=== PATIENT | female | born 1960 | race Caucasian/White ===

== ENCOUNTER 2024-08-20 10:30 | Outpatient (CLI) | payer MEDICARE, SELFPAY ==
[2024-08-20 11:30] LABS: Basophils Absolute Auto 0.1 K/mm3 (0.0-0.1); Basophils Percent Auto 0.9 % (0.2-1.2); Eosinophils Absolute Auto 0.5 K/mm3 (0-0.3); Eosinophils Percent Auto 5.1 % (0-4.4); Hematocrit 39.4 % (37.0-47.0); Hemoglobin 12.3 g/dL (12.0-15.0); Immature Granulocyte Absolute 0.02 K/mm3 (0.00-0.031); Immature Granulocyte Percent A 0.2 % (0-0.5); Lymphocytes Absolute Auto 2.59 K/mm3 (0.9-3.2); Lymphocytes Percent Auto 25.5 % (18.3-44.2); Mean Corpuscular HGB Conc 31.2 g/dl (32-36); Mean Corpuscular Hemoglobin 28.7 pg (26-34); Mean Corpuscular Volume 91.8 fl (80-100); Mean Platelet Volume 9.4 fl (7.4-10.4); Monocytes Absolute Auto 0.6 K/mm3 (0.1-0.6); Monocytes Percent Auto 5.8 % (2.6-8.5); Neutrophils Absolute Auto 6.3 K/mm3 (1.3-6.7); Neutrophils Percent Auto 62.5 % (45.5-73.1); Platelet Count Result 370 k/mm3 (150-375); Red Blood Count 4.29 M/mm3 (4.2-5.4); Red Cell Distribution Width 13.8 % (11.5-14.5); White Blood Count 10.1 K/mm3 (4.5-10.0)
[2024-08-20 11:44] LABS: Add Urine Microscopic? YES; Appearance Urine Clear (Clear); Bacteria Urine None Seen /hpf; Bilirubin Urine Negative (Negative); Blood Urine Negative (Negative); Color Urine Yellow (Yellow); Glucose Urine UA Negative (Negative); Ketones Urine Negative (Negative); Leukocyte Esterase Ur Negative LEU/UL (Negative); Nitrate Urine Negative (Negative); Non Pathogenic Casts 0-2; Protein Urine 3+ mg/dL (Negative); RBC Urine 0-2 /hpf (0-2); Squamous Epithelial Cell Urine None Seen /hpf (Few); Urobilinogen Urine 0.2 mg/dL (<2.0); WBC Urine 0-5 /hpf (0-3); pH Urine 6.5 (5.0-9.0)
[2024-08-20 11:51] LABS: Alanine Aminotransferase 28 U/L (6-35); Alkaline Phosphatase 100 U/L (38-126); Anion Gap 5 mmol/L (4-12); Aspartate Amino Transferase 40 U/L (14-36); Bilirubin,Total 0.5 mg/dL (0.2-1.3); Blood Urea Nitrogen 17 mg/dL (7-17); Calcium 9.8 mg/dL (8.4-10.2); Carbon Dioxide 32 mmol/L (22-30); Chloride 100 mmol/L (98-107); Cholesterol 232 mg/dL (0-200); Estimated Glomerular Filt Rate 47; Glucose 140 mg/dL (65-110); HDL Direct 72 mg/dL; Potassium 4.5 mmol/L (3.4-5.0); Sodium 137 mmol/L (137-145); Triglycerides 320 mg/dL (<150)
[2024-08-20 12:02] LABS: LDL Cholesterol Direct 90 mg/dL
[2024-08-20 12:20] LABS: Total Triiodothyronine (T3) 0.96 NG/ML (0.97-1.69)
[2024-08-20 12:27] LABS: Iron 77 ug/dL (37-170)
[2024-08-20 12:38] LABS: Percent Iron Saturation 26 % (20-50)
[2024-08-20 13:01] LABS: Free T4 Free Thyroxine 0.75 ng/dL (0.78-2.19); Vitamin D 25 Hydroxy 22.4 ng/mL
[2024-08-20 13:05] LABS: Folic Acid > 20.0 ng/mL (2.76->20)
[2024-08-24 00:59] LABS: Alpha-Tocopherol 21.8 mg/L (5.7-19.9); Beta-Gamma Tocopherol 3.3 mg/L (<4.4)
[2024-08-25 19:08] LABS: Vitamin B1 21 nmol/L (8-30)
== END 2024-08-20 10:31 | disposition home or self-care (01) ==
LOC: ANHLAB 10:35
PROVIDERS: PCP Family Medicine; Visit Provider Family Medicine
DX: E78.5 Hyperlipidemia, unspecified (principal); I10 Essential (primary) hypertension; D64.9 Anemia, unspecified; E11.9 Type 2 diabetes mellitus without complications; E55.9 Vitamin D deficiency, unspecified; R53.82 Chronic fatigue, unspecified
CPT/HCPCS: 36415; 80053; 80061; 81001; 82306; 82607; 82728; 82746; 83036; 83540; 83550; 84207; 84252; 84425; 84439; 84443; 84446; 84480; 85025

== ENCOUNTER 2024-10-21 13:54 | Inpatient (IN) | payer MEDICARE, SELFPAY ==
[2024-10-21] VITALS (15 sets, daily range): BP systolic 73–156; BP diastolic 48–88; PULSE 62–167; RESP 12–20; TEMP 36.6–36.8; O2SAT 97–100; BMI 26.5
--- NOTE | ~2024-10-21 | NM_ITS ---
EXAMINATION: NM bakari stress w perfusion DATE: 10/23/2024 10:47 INDICATION: Chest pain TECHNIQUE: Rest images were obtained following intravenous administration of 11.5 mCi Tc99m tetrofosm in (Myoview). The patient was infused intravenously with Lexiscan (Regadenoson). Then, 44.4 mCi Tc99m tetrofosmin (Myoview) was administered intravenously, and stress images were obtained. Data was amauri nstructed into short axis and horizontal and vertical long axis SPECT images. Gated SPECT images were also obtained. COMPARISON: None. FINDINGS: There is no definite reversible or fixed perfusion abnormality to suggest ischemia or infar ction. There is normal left ventricular chamber size, wall motion and ejection fraction. Left ventr icular ejection fraction measures 69%. IMPRESSION: 1. Normal myocardial perfusion at rest and during stress. 2. Left ventricular ejection fraction measuring 69%. Reviewed, dictated and finalized at location B.
--- NOTE | ~2024-10-21 | XR_ITS ---
XR chest 2V Ordering provider: Andrew Woodall MD History: 64 years Female with . cp . Comparison: December 11, 2011 FINDINGS: MEDIASTINUM: The cardiac silhouette is slightly enlarged. Postoperative changes in the mediastinum. LUNGS: No infiltrates, effusions or pneumothorax. Slightly prominent bronchovascular markings in the lower lobes. OTHER: No free air under the diaphragm. IMPRESSION: No acute cardiopulmonary pathology. Reviewed, dictated and finalized at location A.
--- NOTE | ~2024-10-21 | CT_ITS ---
EXAMINATION: CT brain wo con DATE: 10/21/2024 15:27 INDICATION: Headache. TECHNIQUE: Computed tomography (CT) of the head was performed without intravenous contrast. Sagittal and coronal reconstructions were performed. The mA was adjusted according to patient size. Iterative reconstruction technique was employed. The dose-length product was 605.33 mGy-cm. COMPARISON: None FINDINGS: No acute intracranial hemorrhage, acute infarction or abnormal extra axial fluid collection. There is mild to moderate scattered white matter hypoattenuation consistent with chronic small vessel ischemi c disease. Symmetric prominence of the sulci consistent with mild age-appropriate diffuse cerebral vo lume loss. Ventricles are normal and symmetric. No mass/mass effect. Changes of bilateral intraocular lens replacement. The orbits and mastoid air cells are normal. Bubbly mucus in the left sphenoid sin us. IMPRESSION: 1. No acute intracranial process. 2. Age-related changes including mild diffuse volume loss and mild to moderate scattered nonspecific white matter hypoattenuation consistent with chronic small vessel ischemic disease. 2. Bubbly mucus in the left sphenoid sinus. Correlate clinically for acute sinusitis. Reviewed, dictated and finalized at location B. IMPRESSION: 1. No acute intracranial process. 2. Age-related changes including mild diffuse volume loss and mild to moderate scattered nonspecific white matter hypoattenuation consistent with chronic smal l vessel ischemic disease. 2. Bubbly mucus in the left sphenoid sinus. Correlate clinically for acute sinu sitis.
--- NOTE | ~2024-10-21 | US_ITS ---
BILATERAL LOWER EXTREMITY VENOUS ULTRASOUND Ordering provider: Med Aguilar MD History: . +DDimer . Comparison: None. FINDINGS: RIGHT LOWER EXTREMITY VEINS: --COMMON FEMORAL: Patent and free of thrombus. Normal compressibility, phasic flow and augmentation. --PROXIMAL SUPERFICIAL FEMORAL: Patent and free of thrombus. Normal compressibility, phasic flow and augmentation. --DISTAL SUPERFICIAL FEMORAL: Patent and free of thrombus. Normal compressibility, phasic flow and au gmentation. --POPLITEAL: Patent and free of thrombus. Normal compressibility, phasic flow and augmentation. --POSTERIOR TIBIAL: Patent and free of thrombus. Normal compressibility, phasic flow and augmentation . LEFT LOWER EXTREMITY VEINS: --COMMON FEMORAL: Patent and free of thrombus. Normal compressibility, phasic flow and augmentation. --PROXIMAL SUPERFICIAL FEMORAL: Patent and free of thrombus. Normal compressibility, phasic flow and augmentation. --DISTAL SUPERFICIAL FEMORAL: Patent and free of thrombus. Normal compressibility, phasic flow and au gmentation. --POPLITEAL: Patent and free of thrombus. Normal compressibility, phasic flow and augmentation. --POSTERIOR TIBIAL: Patent and free of thrombus. Normal compressibility, phasic flow and augmentation . IMPRESSION: Negative bilateral lower extremity venous US. No deep vein thrombosis. Reviewed, dictated and finalized at location A.
--- NOTE | ~2024-10-21 | US_ITS ---
EXAM: RENAL ULTRASOUND HISTORY: Acute/chronic renal failure COMPARISON: None FINDINGS: RIGHT KIDNEY: 10.6 x 3.4 x 4.3 cm. The parenchyma of the right kidney is increased in echogenicity. No hydronephrosis or bulky renal calculi. LEFT KIDNEY: 10.0 x 5.1 x 3.7 cm No hydronephrosis or renal calculi. The parenchyma of the left kidney is increased in echogenicity. BLADDER: Minimally distended, with bilateral jets visualized. IMPRESSION: No hydronephrosis or renal calculi. Findings suggesting medical renal disease. Reviewed, dictated and finalized at location A.
--- NOTE | 2024-10-21 14:07 | ECG_ITS ---
Test Date: 2024-10-21 14:11:24 Measurements Intervals [place] Rate: 164 P: 0 SD: 0 QRS: 16 QRSD: 80 T: 87 QT: 276 QTc: 457 Interpretive Statements ATRIAL FLUTTER/TACHYCARDIA WITH RAPID VENTRICULAR RESPONSE POSSIBLE RIGHT VENTRICULAR CONDUCTION DELAY ANTEROSEPTAL INFARCT, AGE INDETERMINATE ST-T WAVE ABNORMALITY IN ANTEROLAT/HIGH LAT LEADS- CONSIDER ISCHEMIA ABNORMAL ECG No previous ECG available for comparison Electronically Signed On 10-21-2024 14:15:18 CDT by Barry Cox D.O.
--- NOTE | 2024-10-21 14:12 | ED_ITS ---
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 No shortness of breath. Having nausea but no vomiting. No fevers/chills. Patient is new to the area, having moved here after the of her fiance of 12 years. Has not yet established with a poultry hanger here. Supposed to have an upcoming appointment with Dr Cox. Cardiac risk factors HTN:Denies HLD: Yes, on atorvastatin DM: non insulin dependent , uncontrolled per daughter Obese: No Smoker: Yes like a furance per daughter Personal history OR/TIA/CVA: Yes, OR Fam Hx OR in first degree relative <65yo: Yes, Mother Related Data Home Medications ?Medication ?Instructions ?Recorded ?Confirmed ?Last Taken ?Type alprazolam 0.5 mg tablet (Xanax) 0.5 mg PO QHS PRN anxiety 03/08/23 10/21/24 10/20/24 History ascorbic acid (vitamin C) 250 mg 125 mg PO DAILY 03/08/23 10/21/24 10/21/24 History tablet aspirin 81 mg tablet,delayed 81 mg PO DAILY 03/08/23 10/21/24 10/20/24 History release (Adult Low Dose Aspirin) atorvastatin 20 mg tablet 20 mg PO QHS 03/08/23 10/21/24 10/20/24 History cetirizine 10 mg tablet (Zyrtec) 10 mg PO DAILY PRN allergy symptoms 03/08/23 10/21/24 10/21/24 History cranberry extract 200 mg capsule 36,000 mg PO DAILY 03/08/23 10/21/24 10/21/24 History dicyclomine 20 mg tablet 20 mg PO BID 03/08/23 10/21/24 10/21/24 History ferrous sulfate 325 mg (65 mg 325 mg PO DAILY 03/08/23 10/21/24 10/21/24 History iron) tablet furosemide 40 mg tablet (Lasix) 40 mg PO QAM 03/08/23 10/21/24 10/21/24 History gabapentin 800 mg tablet 800 mg PO QID 03/08/23 10/21/24 10/21/24 History glipizide 5 mg tablet 5 mg PO BID 03/08/23 10/21/24 10/21/24 History hydrocodone 7.5 mg-acetaminophen 1 tablet PO BID 03/08/23 10/21/24 10/20/24 History 750 mg tablet ibuprofen 800 mg tablet 800 mg PO TID PRN pain 03/08/23 10/21/24 Unknown History mecobalamin (vitamin B12) 5,000 5,000 mcg PO DAILY 03/08/23 10/21/24 10/21/24 History mcg chewable tablet metformin 1,000 mg tablet,extended 1,000 mg PO BID 03/08/23 10/21/24 10/21/24 History release 24hr (osmotic) metoprolol tartrate 25 mg tablet 25 mg PO BID 03/08/23 10/21/24 10/21/24 History multivitamin 1 tablet PO DAILY 03/08/23 10/21/24 10/21/24 History pantoprazole 40 mg tablet,delayed 40 mg PO QAM 03/08/23 10/21/24 10/21/24 History release potassium chloride 20 mEq 20 meq PO DAILY 03/08/23 10/21/24 10/21/24 History tablet,extended release sertraline 100 mg tablet 100 mg PO DAILY 03/08/23 10/21/24 10/20/24 History Allergies Allergy/AdvReac Type Severity Reaction Status Date / Time tape Allergy Mild rash Uncoded 10/21/24 14:04 [facility] Past Medical History Medical History (Updated 10/22/24 @ 16:13 by Med Aguilar MD) Atrial flutter Chronic kidney disease, stage 3 Hyperlipidemia Hypertension Depression with anxiety Coronary artery disease Type 2 diabetes mellitus Irritable bowel syndrome Cancer of left breast status post chemo radiation and mastectomy Chronic obstructive pulmonary disease Congestive heart failure Headache Arthritis Anxiety Surgical History Surgical History History of partial hysterectomy History of repair of left rotator cuff History of coronary artery bypass graft x 2 History of left mastectomy Family History Family History Father Alcoholism Daughter Depression Thyroid disorder Mother Acute myocardial infarction <65yo Social History Social History Social History: [place] the [place] due to the of her fiance of 12 years Surrogate medical decision maker: Breanna Ramirez, daughter. Code status: Full code. Smoking packs per day: 0.75 Smoking cigarettes per day: 15.0 Years smoked: 53 Smoking pack-years: 39.75 Smoking status: Current every day smoker Tobacco type: cigarettes Alcohol intake: never Substance use: never Do You Feel Safe in your Home?: Yes Lack of Transportation: No Lack of Food: Never True Current Housing: I Have Housing Concerned About Future Housing: No Difficulty Paying Gas/Electric Bills: No Difficulty Paying for Meds: No Currently Unemployed: No Education: Decline to Answer Difficulty w/ Childcare or Family Care: No Spiritual care concerns: No Exam 2 Narrative: GENERAL: Well-appearing, well-nourished, and in no acute distress. HEAD: Normocephalic, atraumatic. EYES: Non injected, non icteric ENT: Nares clear, no rhinorrhea or epistaxis. No tenderness to palpation of maxillary or frontal sinuses NECK: Supple. CHEST: Speaking in full sentences. No respiratory distress. HEART: IRegularly irregular rate and rhythm at a rate between 150-160 . ABDOMEN: Soft, nondistended. EXTREMITIES: Normal range of motion. 1+ bilateral lower extremity edema. SKIN: Warm, dry, no rash. NEURO: No focal deficits. Alert and oriented x3. PSYCH: Normal mood and affect. Course Vital Signs Vital signs: Vital Signs Temperature 97.8 F 10/21/24 14:02 Pulse Rate 167 H 10/21/24 14:02 Respiratory Rate 20 10/21/24 14:02 Blood Pressure 73/48 L 10/21/24 14:02 Pulse Oximetry 100 10/21/24 14:02 Oxygen Delivery Room Air 10/21/24 14:02 Temperature 97.9 F 10/22/24 23:50 Pulse Rate 62 10/22/24 23:53 Respiratory Rate 18 10/22/24 23:53 Blood Pressure 138/64 10/22/24 23:50 Pulse Oximetry 95 10/22/24 23:53 Oxygen Delivery Room Air 10/22/24 23:53 MDM - Chest Pain MDM Narrative Medical decision making narrative: Patient presents with chets pain and increased heart rate approximately 1 hour prior to arrival. In the emergency department she is afebrile with vital signs notable for a very fast heart rate and hypotension. Patient is in atrial fibrillation with rapid ventricular response (AFib with RVR). An IV was placed and the patient was put on cardiac and pulse oximetry monitors. Patient given 500cc fluid bolus and with this, there is improvement in blood pressure, more hemodynamically stable thus early priority in management was to slow the ventricular rate using metoprolol given this is a medication he is already on. IVP 5mg over 2 minutes initially ordered. No response so this is repeated x1. No response so using diltiazem 0.25mg/kg = approximately 15 mg. Patient rate controls with this. Will administer 30mg PO short-acting diltiazem q6 hours with holding parameters. Patient not currently on anticoagulation. Will require CHADS VASc score calculated as risk stratification for determining stroke risk. HEART SCORE History 2 highly suspicious 1 moderately suspicious 0 slightly suspicious History score [address] depression/elevation not due to LBBB, LVH, or digoxin [address] depression but LBBB, LVH, nonspecific repolarization changes 0 normal ECG score 1 Age 2 >/= 65 1 45-64 0 <45 Age score 2 Risk factors (HTN, hypercholesterolemia, DM, obesity with BMI >30, current smoker or cessation </=3mo), positive fam hx with parent or sibling with CVD before age 65, atherosclerotic disease (prior OR, PCI/CABG, CVA/TIA, or peripheral arterial disease) 2 >/= 3 risk factors or history of atherosclerotic dz 1 - 1-2 risk factors 0 no known risk factors Risk factor score 2 (HLD, DM, smoker, Hx OR, Fam Hx) Initial Troponin 2 >3 times normal limit 1 1-3 times normal limit 0 less than or equal to normal limit Troponin score 0 Total HEART Score 5. Mild hyperkalemia. Calcium gluconate ordered. Will defer giving albuterol given her high heart rate initially. Ordered 5U insulin (reduced given renal function) but deferred additional glucose as she has hyperglycemia. Will defer Lasix at this time given she is hypotensive/borderline hypotensive. No role for bicarb given not acidotic. Had ordered a small 500 cc bolus of IV fluids initially given her tachycardia, judicious given her heart failure. 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 Hyperglycemia is without anion gap acidosis. After patient has rate controlled, she states that her chest pain and shortness of breath are better however she had not earlier been able to states that she has had a headache as well and now this feels like the most prominent symptom. She states when her head gets to pounding as it has been recently (at the top of her head), she will feel numbness and tingling in bilateral arms and legs and this was happening earlier. Patient has converted to a sinus rhythm. Mild leukocytosis. After obtaining the patient's history and performing a physical exam, the headache is most likely due to benign etiology. The neurological examination is non-focal, there are no high-risk features on history, vital signs are stable, and the patient is non-toxic appearing. The Ddx for the patient's headache is tension headache, migraine, or other headache of non-emergent etiology. Patient's headache treated. Better on re-evaluation. Dimer is elevated but YEARS Algorithm : No Clinical signs of DVT: No Hemoptysis: No PE is most likely diagnosis: No D-dimer >1000ng/mL: No Result: PE Excluded Repeat troponin is positive. 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 Differential Diagnosis Differential diagnosis: Likely stable angina, unstable angina pectoris, atypical chest pain, st elevation myocardial infarction, chest pain, biliary colic and other (afib (w/ RVR); ) Lab Data Attestation: I reviewed the patient's lab results. 10/22/24 03:45 10/22/24 03:45 Labs: Lab Results 10/21/24 10/21/24 10/21/24 Range/Units 14:20 14:51 15:06 WBC 11.7 H (4.5-10.0) K/mm3 RBC 4.17 L (4.2-5.4) M/mm3 Hgb 12.1 (12.0-15.0) g/dL Hct 38.7 (37.0-47.0) % MCV 92.8 (80-100) fl MCH 29.0 (26-34) pg MCHC 31.3 L (32-36) g/dl RDW 14.1 (11.5-14.5) % Plt Count 335 (150-375) k/mm3 MPV 9.7 (7.4-10.4) fl Immature Gran % (Auto) 0.4 (0-0.5) % Neut % (Auto) 59.8 (45.5-73.1) % Lymph % (Auto) 28.6 (18.3-44.2) % Snyder % (Auto) 7.9 (2.6-8.5) % Eos % (Auto) 2.8 (0-4.4) % Baso % (Auto) 0.5 (0.2-1.2) % Lymph # (Auto) 3.35 H (0.9-3.2) K/mm3 Snyder # (Auto) 0.9 H (0.1-0.6) K/mm3 Eos # (Auto) 0.3 (0-0.3) K/mm3 Baso # (Auto) 0.1 (0.0-0.1) K/mm3 Abs Immat Gran (auto) 0.05 H (0.00-0.031) K/mm3 Absolute Neuts (auto) 7.0 H (1.3-6.7) K/mm3 Absolute Nucleated RBC 0.000 (0.0-0.012) K/mm3 Nucleated RBC % 0.0 (0.0-0.2) % PT 12.8 (11.1-14.7) Seconds INR 0.9 APTT 25.7 (22.3-36.8) Seconds D-Dimer 0.84 H (<0.48) ug/mL Sodium 138 (137-145) mmol/L Potassium 5.4 H (3.4-5.0) mmol/L Chloride 101 (98-107) mmol/L Carbon Dioxide 26 (22-30) mmol/L Anion Gap 11 (4-12) mmol/L BUN 23 H (7-17) mg/dL Creatinine 1.67 H (0.7-1.0) mg/dL Estim Creat Clear Calc 27 ml/min Estimated GFR 31 L (59 - ) Glucose 264 H (65-110) mg/dL POC Capillary Glucose 231 H (65-105) mg/dl Hemoglobin A1c (<5.7) % Calcium 9.3 (8.4-10.2) mg/dL Magnesium (1.6-2.3) mg/dL Total Bilirubin 0.2 (0.2-1.3) mg/dL AST 43 H (14-36) U/L ALT 30 (6-35) U/L Alkaline Phosphatase 104 (38-126) U/L Total Creatine Kinase (30-135) U/L Troponin I < 0.012 (0.000-0.034) ng/mL C-Reactive Protein (<1.0) mg/dL NT-Pro-B Natriuret Pep 1580 H (19.9-100) pg/mL Total Protein 7.0 (6.3-8.2) g/dL Albumin 4.0 (3.5-5.1) g/dL Triglycerides (<150) mg/dL Cholesterol (0-200) mg/dL LDL Cholesterol Direct mg/dL HDL Direct mg/dL Lipase 243 (23-300) U/L TSH 1.810 (0.465-4.680) uIU/mL Urine Eosinophils (None Seen) % U Random Total Protein mg/dL Ur Random Sodium meq/L Ur Random Potassium meq/L Urine Creatinine mg/dL Protein/Creat Ratio 2 (0-0.20) mg/mg Influenza A (RT-PCR) Negative (Negative) Influenza B (RT-PCR) Negative (Negative) RSV (RT-PCR) Negative (Negative) SARS-CoV-2 RNA (RT-PCR) Negative (Negative) 10/21/24 10/21/24 10/21/24 Range/Units 16:33 17:20 22:06 WBC (4.5-10.0) K/mm3 RBC (4.2-5.4) M/mm3 Hgb (12.0-15.0) g/dL Hct (37.0-47.0) % MCV (80-100) fl MCH (26-34) pg MCHC (32-36) g/dl RDW (11.5-14.5) % Plt Count (150-375) k/mm3 MPV (7.4-10.4) fl Immature Gran % (Auto) (0-0.5) % Neut % (Auto) (45.5-73.1) % Lymph % (Auto) (18.3-44.2) % Snyder % (Auto) (2.6-8.5) % Eos % (Auto) (0-4.4) % Baso % (Auto) (0.2-1.2) % Lymph # (Auto) (0.9-3.2) K/mm3 Snyder # (Auto) (0.1-0.6) K/mm3 Eos # (Auto) (0-0.3) K/mm3 Baso # (Auto) (0.0-0.1) K/mm3 Abs Immat Gran (auto) (0.00-0.031) K/mm3 Absolute Neuts (auto) (1.3-6.7) K/mm3 Absolute Nucleated RBC (0.0-0.012) K/mm3 Nucleated RBC % (0.0-0.2) % PT (11.1-14.7) Seconds INR APTT (22.3-36.8) Seconds D-Dimer (<0.48) ug/mL Sodium 138 (137-145) mmol/L Potassium 4.7 (3.4-5.0) mmol/L Chloride 103 (98-107) mmol/L Carbon Dioxide 30 (22-30) mmol/L Anion Gap 5 (4-12) mmol/L BUN 25 H (7-17) mg/dL Creatinine 1.93 H (0.7-1.0) mg/dL Estim Creat Clear Calc 24 ml/min Estimated GFR 26 L (59 - ) Glucose 104 (65-110) mg/dL POC Capillary Glucose 77 (65-105) mg/dl Hemoglobin A1c 7.7 H (<5.7) % Calcium 9.3 (8.4-10.2) mg/dL Magnesium (1.6-2.3) mg/dL Total Bilirubin (0.2-1.3) mg/dL AST (14-36) U/L ALT (6-35) U/L Alkaline Phosphatase (38-126) U/L Total Creatine Kinase (30-135) U/L Troponin I 0.333 H* D Cancelled (0.000-0.034) ng/mL C-Reactive Protein (<1.0) mg/dL NT-Pro-B Natriuret Pep (19.9-100) pg/mL Total Protein (6.3-8.2) g/dL Albumin (3.5-5.1) g/dL Triglycerides (<150) mg/dL Cholesterol (0-200) mg/dL LDL Cholesterol Direct mg/dL HDL Direct mg/dL Lipase (23-300) U/L TSH (0.465-4.680) uIU/mL Urine Eosinophils (None Seen) % U Random Total Protein mg/dL Ur Random Sodium meq/L Ur Random Potassium meq/L Urine Creatinine mg/dL Protein/Creat Ratio 2 (0-0.20) mg/mg Influenza A (RT-PCR) (Negative) Influenza B (RT-PCR) (Negative) RSV (RT-PCR) (Negative) SARS-CoV-2 RNA (RT-PCR) (Negative) 10/21/24 10/22/24 10/22/24 Range/Units 22:06 00:25 00:25 WBC (4.5-10.0) K/mm3 RBC (4.2-5.4) M/mm3 Hgb (12.0-15.0) g/dL Hct (37.0-47.0) % MCV (80-100) fl MCH (26-34) pg MCHC (32-36) g/dl RDW (11.5-14.5) % Plt Count (150-375) k/mm3 MPV (7.4-10.4) fl Immature Gran % (Auto) (0-0.5) % Neut % (Auto) (45.5-73.1) % Lymph % (Auto) (18.3-44.2) % Snyder % (Auto) (2.6-8.5) % Eos % (Auto) (0-4.4) % Baso % (Auto) (0.2-1.2) % Lymph # (Auto) (0.9-3.2) K/mm3 Snyder # (Auto) (0.1-0.6) K/mm3 Eos # (Auto) (0-0.3) K/mm3 Baso # (Auto) (0.0-0.1) K/mm3 Abs Immat Gran (auto) (0.00-0.031) K/mm3 Absolute Neuts (auto) (1.3-6.7) K/mm3 Absolute Nucleated RBC (0.0-0.012) K/mm3 Nucleated RBC % (0.0-0.2) % PT (11.1-14.7) Seconds INR APTT (22.3-36.8) Seconds D-Dimer (<0.48) ug/mL Sodium (137-145) mmol/L Potassium (3.4-5.0) mmol/L Chloride (98-107) mmol/L Carbon Dioxide (22-30) mmol/L Anion Gap (4-12) mmol/L BUN (7-17) mg/dL Creatinine (0.7-1.0) mg/dL Estim Creat Clear Calc ml/min Estimated GFR (59 - ) Glucose (65-110) mg/dL POC Capillary Glucose (65-105) mg/dl Hemoglobin A1c (<5.7) % Calcium (8.4-10.2) mg/dL Magnesium (1.6-2.3) mg/dL Total Bilirubin (0.2-1.3) mg/dL AST (14-36) U/L ALT (6-35) U/L Alkaline Phosphatase (38-126) U/L Total Creatine Kinase (30-135) U/L Troponin I 1.530 H* D (0.000-0.034) ng/mL C-Reactive Protein < 0.5 (<1.0) mg/dL NT-Pro-B Natriuret Pep (19.9-100) pg/mL Total Protein (6.3-8.2) g/dL Albumin (3.5-5.1) g/dL Triglycerides (<150) mg/dL Cholesterol (0-200) mg/dL LDL Cholesterol Direct mg/dL HDL Direct mg/dL Lipase (23-300) U/L TSH (0.465-4.680) uIU/mL Urine Eosinophils None seen (None Seen) % U Random Total Protein 359 mg/dL Ur Random Sodium 66 meq/L Ur Random Potassium 87.6 meq/L Urine Creatinine 104.6 104.4 mg/dL Protein/Creat Ratio 2 3.43 H (0-0.20) mg/mg Influenza A (RT-PCR) (Negative) Influenza B (RT-PCR) (Negative) RSV (RT-PCR) (Negative) SARS-CoV-2 RNA (RT-PCR) (Negative) 10/22/24 10/22/24 10/22/24 Range/Units 03:45 07:33 08:43 WBC 10.1 H (4.5-10.0) K/mm3 RBC 3.70 L (4.2-5.4) M/mm3 Hgb 10.5 L (12.0-15.0) g/dL Hct 34.0 L (37.0-47.0) % MCV 91.9 (80-100) fl MCH 28.4 (26-34) pg MCHC 30.9 L (32-36) g/dl RDW 14.2 (11.5-14.5) % Plt Count 285 (150-375) k/mm3 MPV 9.8 (7.4-10.4) fl Immature Gran % (Auto) (0-0.5) % Neut % (Auto) (45.5-73.1) % Lymph % (Auto) (18.3-44.2) % Snyder % (Auto) (2.6-8.5) % Eos % (Auto) (0-4.4) % Baso % (Auto) (0.2-1.2) % Lymph # (Auto) (0.9-3.2) K/mm3 Snyder # (Auto) (0.1-0.6) K/mm3 Eos # (Auto) (0-0.3) K/mm3 Baso # (Auto) (0.0-0.1) K/mm3 Abs Immat Gran (auto) (0.00-0.031) K/mm3 Absolute Neuts (auto) (1.3-6.7) K/mm3 Absolute Nucleated RBC (0.0-0.012) K/mm3 Nucleated RBC % (0.0-0.2) % PT (11.1-14.7) Seconds INR APTT (22.3-36.8) Seconds D-Dimer (<0.48) ug/mL Sodium 139 (137-145) mmol/L Potassium 4.3 (3.4-5.0) mmol/L Chloride 104 (98-107) mmol/L Carbon Dioxide 29 (22-30) mmol/L Anion Gap 6 (4-12) mmol/L BUN 27 H (7-17) mg/dL Creatinine 1.97 H (0.7-1.0) mg/dL Estim Creat Clear Calc 23 ml/min Estimated GFR 25 L (59 - ) Glucose 101 (65-110) mg/dL POC Capillary Glucose 112 H (65-105) mg/dl Hemoglobin A1c (<5.7) % Calcium 9.0 (8.4-10.2) mg/dL Magnesium 1.6 (1.6-2.3) mg/dL Total Bilirubin 0.3 (0.2-1.3) mg/dL AST 38 H (14-36) U/L ALT 27 (6-35) U/L Alkaline Phosphatase 100 (38-126) U/L Total Creatine Kinase 99 (30-135) U/L Troponin I 0.918 H* (0.000-0.034) ng/mL C-Reactive Protein (<1.0) mg/dL NT-Pro-B Natriuret Pep (19.9-100) pg/mL Total Protein 6.0 L (6.3-8.2) g/dL Albumin 3.5 (3.5-5.1) g/dL Triglycerides 227 H (<150) mg/dL Cholesterol 172 (0-200) mg/dL LDL Cholesterol Direct 65 mg/dL HDL Direct 54 mg/dL Lipase (23-300) U/L TSH (0.465-4.680) uIU/mL Urine Eosinophils (None Seen) % U Random Total Protein mg/dL Ur Random Sodium meq/L Ur Random Potassium meq/L Urine Creatinine mg/dL Protein/Creat Ratio 2 (0-0.20) mg/mg Influenza A (RT-PCR) (Negative) Influenza B (RT-PCR) (Negative) RSV (RT-PCR) (Negative) SARS-CoV-2 RNA (RT-PCR) (Negative) Imaging Data Radiologist's impression: IMPRESSION: 1. No acute intracranial process. 2. Age-related changes including mild diffuse volume loss and mild to moderate scattered nonspecific white matter hypoattenuation consistent with chronic small vessel ischemic disease. 2. Bubbly mucus in the left sphenoid sinus. Correlate clinically for acute sinusitis. IMPRESSION: No acute cardiopulmonary pathology. ECG Data EKG #1: Attestation: I personally reviewed and interpreted this ECG as follows: ECG completion date: 10/21/24 ECG completion time: 14:11 Prior ECG tracings: not available for review (No prior for comparison) Interpretation: Atrial flutter versus tachycardia at a rate of 164 beats per minute therefore rapid ventricular response. QRS 80 milliseconds. QT/QTC 276/366. Good R-wave progression across the precordial leads. No T-wave inversions. There is ST depression in 2 , mild ST depression AVF but less than 1 mm and there is no ST depression in contiguous inferior lead 3. ST depressions in V4 V5 and V6. EKG #2: Attestation: I personally reviewed and interpreted this ECG as follows: ECG completion date: 10/21/24 ECG completion time: 15:11 Interpretation: Normal sinus rhythm at a rate of 75 beats per minute. SC interval 157. QRS 80. QT/QTC 4 1/430. Good R-wave progression across the precordial leads. The depressions that had previously been appreciated are not as prominent. EKG #3: Attestation: I personally reviewed and interpreted this ECG as follows: ECG completion date: 10/21/24 ECG completion time: 17:23 Interpretation: Normal sinus rhythm at a rate of 66 beats per minute. SC interval 147. QRS 75. QT/QTC 419/432. Good R-wave progression across the precordial leads. No T- wave inversions. Possible right ventricular conduction delay given RSR appearance. Discharge Plan Discharge Clinical Impression: Atrial fibrillation with rapid ventricular response, Hyperkalemia, Acute kidney injury superimposed on CKD, Hyperglycemia due to diabetes mellitus, Leukocytosis, Headache, Non-ST elevation OR (NSTEMI) Patient Disposition: Still a Patient Condition: Stable
[2024-10-21] MEDS: SODIUM CHLORIDE 0.9% IV 500 ML 999 ML IV CONT (14:18)
[2024-10-21] MEDS: ASPIRIN 81 MG CHEWABLE TABLET 324 MG PO (14:18)
[2024-10-21] MEDS: METOPROLOL TARTRATE INJ 5 MG/5 ML VIAL IV PUSH ×2 (14:20→14:29)
[2024-10-21 14:27] LABS: Basophils Absolute Auto 0.1 K/mm3 (0.0-0.1); Basophils Percent Auto 0.5 % (0.2-1.2); Eosinophils Absolute Auto 0.3 K/mm3 (0-0.3); Eosinophils Percent Auto 2.8 % (0-4.4); Hematocrit 38.7 % (37.0-47.0); Hemoglobin 12.1 g/dL (12.0-15.0); Immature Granulocyte Absolute 0.05 K/mm3 (0.00-0.031); Immature Granulocyte Percent A 0.4 % (0-0.5); Lymphocytes Absolute Auto 3.35 K/mm3 (0.9-3.2); Lymphocytes Percent Auto 28.6 % (18.3-44.2); Mean Corpuscular HGB Conc 31.3 g/dl (32-36); Mean Corpuscular Volume 92.8 fl (80-100); Mean Platelet Volume 9.7 fl (7.4-10.4); Monocytes Absolute Auto 0.9 K/mm3 (0.1-0.6); Monocytes Percent Auto 7.9 % (2.6-8.5); Neutrophils Percent Auto 59.8 % (45.5-73.1); Platelet Count Result 335 k/mm3 (150-375); Red Blood Count 4.17 M/mm3 (4.2-5.4); Red Cell Distribution Width 14.1 % (11.5-14.5); White Blood Count 11.7 K/mm3 (4.5-10.0)
[2024-10-21 14:37] LABS: Alanine Aminotransferase 30 U/L (6-35); Alkaline Phosphatase 104 U/L (38-126); Anion Gap 11 mmol/L (4-12); Aspartate Amino Transferase 43 U/L (14-36); Bilirubin,Total 0.2 mg/dL (0.2-1.3); Blood Urea Nitrogen 23 mg/dL (7-17); Calcium 9.3 mg/dL (8.4-10.2); Carbon Dioxide 26 mmol/L (22-30); Chloride 101 mmol/L (98-107); Estimated CRCL calculation 27 ml/min; Estimated Glomerular Filt Rate 31; Glucose 264 mg/dL (65-110); Lipase 243 U/L (23-300); Potassium 5.4 mmol/L (3.4-5.0); Sodium 138 mmol/L (137-145)
[2024-10-21 14:38] LABS: INR 0.9; Prothrombin Time 12.8 Seconds (11.1-14.7)
[2024-10-21 14:40] LABS: Partial Thromboplastin Time 25.7 Seconds (22.3-36.8)
[2024-10-21] MEDS: dilTIAZem HCl INJ 25 MG/5 ML VIAL 15 MG IV PUSH (14:42)
[2024-10-21 14:48] LABS: Troponin I < 0.012 ng/mL (0.000-0.034)
--- NOTE | 2024-10-21 14:49 | ECG_ITS ---
Test Date: 2024-10-21 15:11:19 Measurements Intervals [place] Rate: 75 P: 54 VT: 157 QRS: 22 QRSD: 80 T: 75 QT: 401 QTc: 449 Interpretive Statements SINUS RHYTHM POSSIBLE LEFT ATRIAL ENLARGEMENT POSSIBLE RIGHT VENTRICULAR CONDUCTION DELAY CANNOT R/O SEPTAL INFARCT, AGE INDETERMINATE BORDERLINE ST-T WAVE ABNORMALITY- HIGH LATERAL LEADS ABNORMAL ECG Compared to ECG 10/21/2024 14:11:24 Atrial flutter no longer present Electronically Signed On 10-21-2024 15:11:55 CDT by Barry Cox D.O.
[2024-10-21] MEDS: CALCIUM GLUCONATE 1,000 MG/10 ML VIAL 1000 MG IV PUSH (14:51)
[2024-10-21] MEDS: INSULIN HUMAN REGULAR (*BKC) 100 UNITS/ML IV PUSH (14:51)
[2024-10-21] MEDS: ACETAMINOPHEN 500 MG TABLET 1000 MG PO (15:02)
[2024-10-21 15:03] LABS: Glucose Point of Care 231 mg/dl (65-105)
[2024-10-21 15:19] LABS: D Dimer 0.84 ug/mL (<0.48)
--- OUTSIDE RECORDS SUMMARY | 2024-10-21 15:25 | XMS_ITS | Continuity of Care Document ---
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 [address] [place] [address], [id number], [place]. tel:[phone] Referring Provider: ALANNAH Buchanan, [address] [place] [address], [id number]. tel:[phone] OFFICE/OUTPAT IENT VISIT, [facility], [address] [place] [address], [id number], tel:[phone] [facility] shoulder (chief complaint) Incomplete rotatr-cuff tear/ruptr of r shoulder, not trauma [address]. [address] [place] [address], [id number], [place]. tel:[phone] Referring Provider: ANAM YUN MD, [address] [place] [address], [id number]. tel:[phone] Family History Family Member Type Diagnosis Age At Onset No Information Payers Payer name Insurance type Covered democrat ID Authoriza tion(s) MEDICARE MB [id number] Social History Type Description Quantity Date Captured Comments Alcohol Use Details No Caffeine Use Details Unknown Tobacco Use Status Smoking Status Unknown if ever smoked 20 Non-Smoking Tobacco Use Details : No Details [...] is taking pain meds from another [facility]. shoulder (comments) Left shoulde r and arm [...]
--- OUTSIDE RECORDS SUMMARY | 2024-10-21 15:25 | XMS_ITS | Continuity of Care Document ---
Author Organization [facility] Address [address] [place] [address] Phone Care Team Providers Care Brewery Worker Name Role Phone Alexey Millan MD [...] BY MOUTH ONCE DAILY NEEDED - Active dicyclomine 20 mg tablet - Active atorvastatin 20 mg tablet - Active sertraline 100 mg tablet TAKE 1 TABLET BY MOUTH ONCE DAILY - Active metformin 1,000 mg tablet TAKE 1 TABLET BY MOUTH TWICE DAILY - Active potassium chloride ER 20 [...] 1 tablet by oral route every day 200 MG - Active Claritin 10 mg tablet take [...] Copied on Encounter OFFICE/OUTPA TIENT VISIT, EST [facility], [address], [place], [place], [id number] , [place] tel:[phone] Tej Gorman f/u (chief complaint) Freeform HPI (chief complaint) Palpitatio ns (chief complaint) Dyspnea (chief complaint) COPDShortness of breathNicotine dependence, cigarettes, uncomplicatedAtherosc lerotic heart disease of [place] coronary artery with unspecified angina pectorisPalpitationsT ype II diabetes without complicationGERD w/o esophagitisHypertensi onStroke 4 Monty Blackburn. [address] [place] [address], [id number] , [place]. tel:[phone] Referring Provider: Tesha Fernandez [address], [address] [place], [address]. tel:[phone] OFFICE/OUTPA TIENT VISIT, EST [facility], [address] [place] [address], [id number] , [place] tel:[phone] [facility] Freeform HPI (chief complaint) COPDShortness of breathNicotine dependence, cigarettes, uncomplicatedAtherosc lerotic heart disease of [place] coronary artery with unspecified angina pectorisPalpitations 3 Monty Blackburn. [address] [place] [address], [id number] , [place]. tel:[phone] Referring Provider: Alexey Reyna, [address] [place] [address], [id number] . tel:[phone] [facility], [address] [place] [address], [id number] , [place] tel:[phone] [facility] No Information 2 Monty Blackburn. [address] [place] [address], [id number] , [place]. [phone] Referring Provider: Alexey Reyna, [address] [place] [address], [id number] . tel:[phone] OFFICE/OUTPA TIENT VISIT, EST [facility], [address] [place] [address], [id number] , [place] [phone] [facility] Freeform HPI (chief complaint) COPDAtherosclerotic heart disease of [place] coronary artery with unspecified angina pectorisChest painShortness of breathPalpitationsNic otine dependence, cigarettes, uncomplicated 2 Claude Rosario. [address] [place] [address] [place], [place], [id number] , [place]. [phone] Referring Provider: Marlene Buchanan, [address] [place] [address] , [place], [address] . tel:[phone] [facility], [address] [place] [address], [id number] , tel:[phone] [facility] No Information 2 Monty Blackburn. [address] [place] [address], [id number] , . tel:[phone] Referring Provider: Alexey Reyna, [address] [place] [address], [id number] . tel:[phone] OFFICE/OUTPA TIENT VISIT, NEW [facility], [address] [place] [address], [address] [place] [address] , [phone] [facility] Freeform HPI (chief complaint) Freeform HPI (chief complaint) Chest Pain (chief complaint) Dyspnea (chief complaint) Palpitatio ns (chief complaint) COPDAtherosclerotic heart disease of [place] coronary artery with unspecified angina pectorisChest painShortness of breathPalpitationsNic otine dependence, cigarettes, uncomplicated 2 Monty Blackburn. [address] [place] [address], [id number] , . tel:[phone] Referring Provider: Alexey Reyna, [address] [place] [address], [id number] . tel:[phone] Family History Family Member Type Diagnosis Age At Onset Problem (finding) Myocardial infarction Problem (finding) Family history of Diabe malina mellitus Problem (finding) Family history of hyper tension Problem (finding) Family history of strok e Payers Payer name Insurance type Covered republican ID Authoriza titriston(s) [facility] [id number] Social History Type Description Quantity Date Captured [...] uncomplicated assessment Atherosclerotic hear t disease of [place] coronary artery with unspecified angina pectoris assessment Palpitations assessment Type II diabetes without complic ation assessment GERD w/o esophagitis assessment Hypertension assessment Stroke Patient Care Teams Name Effective Dates (start - stop) Status Members No Information
[2024-10-21 15:49] LABS: Influenza A QL RT-PCR Negative (Negative); Influenza B QL RT-PCR Negative (Negative); RSV RNA, RT-PCR Negative (Negative); SARS-CoV-2 RNA PCR Negative (Negative)
--- OUTSIDE RECORDS SUMMARY | 2024-10-21 15:54 | XMS_ITS | Continuity of Care Document ---
Author Organization [facility] Address [address] [place] [address] Phone Care Team Providers Care Quality Director Name Role Phone ALANNAH LEBLANC MD Unavailable [...] IENT VISIT, EST [facility], [address] [place] [address], [address] [place] [address], tel:[phone] [facility] shoulder (chief complaint) Pain in left shoulder 0 DEANA JAFFE. [address] [place] [address], [id number], [place]. tel:[phone] Referring Provider: ALANNAH Buchanan, [address] [place] [address], [id number]. tel:[phone] OFFICE/OUTPAT IENT VISIT, [facility], [address] [place] [address], [id number], tel:[phone] [facility] shoulder (chief complaint) Incomplete rotatr-cuff tear/ruptr of r shoulder, not trauma [address] MEND[address]. [address] [place] [address], [id number], [place]. tel:[phone] Referring Provider: ANAM YUN MD, [address] [place] [address], [id number]. tel:[phone] Family History Family Member Type Diagnosis Age At Onset No Information Payers Payer name Insurance type Covered green party ID Authoriza tion(s) MEDICARE MB [id number] Social History Type Description Quantity Date Captured [...]
--- OUTSIDE RECORDS SUMMARY | 2024-10-21 15:54 | XMS_ITS | Continuity of Care Document ---
Author Organization [facility] Address [address] [place] [address] Phone Care Team Providers Care Blower And Compressor Assembler Name Role Phone Alexey Millan MD Unavailable [...] route every day 200 MG - Active iron 325 mg (65 mg [...] Copied on Encounter OFFICE/OUTPA TIENT VISIT, EST [facility], [address], [place], [place], [id number] , [place] tel:[phone] Tej Gorman f/u (chief complaint) Freeform HPI (chief complaint) Palpitatio ns (chief complaint) Dyspnea (chief complaint) COPDShortness of breathNicotine dependence, cigarettes, uncomplicatedAtherosc lerotic heart disease of [place] coronary artery with unspecified angina pectorisPalpitationsT ype II diabetes without complicationGERD w/o esophagitisHypertensi onStroke 4 Monty Blackburn. [address] [place] [address], [id number] , [place]. tel:[phone] Referring Provider: Tesha Fernandez HAND CULTIVATOR, [address] [place], [address]. tel:[phone] OFFICE/OUTPA TIENT VISIT, EST [facility], [address] [place] [address], [id number] , [place] tel:[phone] [facility] Freeform HPI (chief complaint) COPDShortness of breathNicotine dependence, cigarettes, uncomplicatedAtherosc lerotic heart disease of [place] coronary artery with unspecified angina pectorisPalpitations 3 Monty Blackburn. [address] [place] [address], [id number] , [place]. tel:[phone] Referring Provider: Alexey Reyna, [address] [place] [address], [id number] . tel:[phone] [facility], [address] [place] [address], [id number] , [place] tel:[phone] [facility] No Information 2 Monty Blackburn. [address] [place] [address], [id number] , [place]. [phone] Referring Provider: Alexey Reyna, [address] [place] [address], [id number] . tel:[phone] OFFICE/OUTPA TIENT VISIT, EST [facility], [address] [place] [address], [id number] , [place] [phone] [facility] Freeform HPI (chief complaint) COPDAtherosclerotic heart disease of [place] coronary artery with unspecified angina pectorisChest painShortness of breathPalpitationsNic otine dependence, cigarettes, uncomplicated 2 Claude Rosario. [address] [place] [address] [place], [place], [id number] , [place]. [phone] Referring Provider: Marlene Buchanan, [address] [place] [address] , [place], [address] . tel:[phone] [facility], [address] [place] [address], [id number] , tel:[phone] [facility] No Information 2 Monty Blackburn. [address] [place] [address], [id number] , . tel:[phone] Referring Provider: Alexey Reyna, [address] [place] [address], [id number] . tel:[phone] OFFICE/OUTPA TIENT VISIT, NEW [facility], [address] [place] [address], [address] [place] [address] , [phone] [facility] Freeform HPI (chief complaint) Freeform HPI (chief complaint) Chest Pain (chief complaint) Dyspnea (chief complaint) Palpitatio ns (chief complaint) COPDAtherosclerotic heart disease of [place] coronary artery with unspecified angina pectorisChest painShortness of breathPalpitationsNic otine dependence, cigarettes, uncomplicated 2 Monty Blackburn. [address] [place] [address], [id number] , . tel:[phone] Referring Provider: Alexey Reyna, [address] [place] [address], [id number] . tel:[phone] Family History Family Member Type Diagnosis Age At Onset Problem (finding) Myocardial infarction Problem (finding) Family history of Diabe malina mellitus Problem (finding) Family history of hyper tension Problem (finding) Family history of strok e Payers Payer name Insurance type Covered constitution party ID Authoriza titriston(s) [facility] [id number] Social History Type Description Quantity Date Captured [...] uncomplicated assessment Atherosclerotic hear t disease of [place] coronary artery with unspecified angina pectoris assessment Palpitations assessment Type II diabetes without complic ation assessment GERD w/o esophagitis assessment Hypertension assessment Stroke Patient Care Teams Name Effective Dates (start - stop) Status Members No Information
[2024-10-21 16:19] LABS: NT Pro B Type Natriuretic Pept 1580 pg/mL (19.9-100)
[2024-10-21] MEDS: KETOROLAC 15 MG/ML VIAL (*BKC) IV PUSH (16:34)
[2024-10-21] MEDS: PROCHLORPERAZINE EDISYLATE 10 MG/2 ML VIAL 5 MG IV PUSH (16:34)
[2024-10-21 16:41] LABS: Glucose Point of Care 77 mg/dl (65-105)
--- NOTE | 2024-10-21 17:15 | ECG_ITS ---
Test Date: 2024-10-21 17:23:56 Measurements Intervals [place] Rate: 66 P: 29 [place]: 147 QRS: 37 QRSD: 75 T: 80 QT: 419 QTc: 440 Interpretive Statements SINUS RHYTHM CANNOT R/O SEPTAL INFARCT, AGE INDETERMINATE BORDERLINE ST-T WAVE ABNORMALITY- LAT/HIGH LAT LEADS ABNORMAL ECG Compared to ECG 10/21/2024 15:11:19 No significant changes Electronically Signed On 10-21-2024 17:57:31 CDT by Barry Cox D.O.
[2024-10-21 17:55] LABS: Troponin I 0.333 ng/mL (0.000-0.034)
--- NOTE | 2024-10-21 19:36 | PC.NURSE ---
Assumed care of patient after receiving report from ISABELLA Muir & ISABELLA Bran @ [phone]
--- NOTE | 2024-10-21 21:41 | ADMGEN ---
This patient, Cassi Taylor, was admitted to IMU Room 206-01. Patient/family oriented to hospital policies and general routines including ID bracelet, bed and alarms, visiting hours, pain management, procedures, bathroom and other care routines, personal items, smoking policy, room service/diet, and visiting hours. Information on how to activate the Rapid Response Team has been discussed. Patient/Family are encouraged to report perceived risks to care and to ask questions if they do not understand what they are told or what they should do.
--- NOTE | 2024-10-21 21:50 | P.HP_ITS ---
H&P: HPI History of Present Illness Date/Time: 10/21/24 21:50 Chief Complaint: Chest pain and fast heart rate. Narrative: This is a 64-year-old female smoker with history of coronary artery disease status post coronary artery bypass graft x2, hypertension, dyslipidemia, chronic obstructive pulmonary disease, obstructive sleep apnea, pancreatitis, type 2 diabetes mellitus, depression, and anxiety who presented to the emergency department for evaluation of chest pain and a fast heart rate. Approximately 1 hour prior to arrival she developed sensations of racing heart and palpitations associated with mild dyspnea on exertion and mild chest discomfort. She apparently has a history of transient atrial fibrillation which has not been a recent issue and she is not on anticoagulation. She denies syncope, near syncope, exertional chest pain, pleuritic pain, orthopnea, nausea, vomiting, sweats, lower extremity edema, and calf pain. She denies significant caffeine and alcohol use. Of note, she has had some sinus issues this week. In the ED: Vital signs were stable on arrival. Labs were significant for WBC count of 11.7, D-dimer 0.84, potassium 5.4, BUN 23, creatinine 1.67, glucose 264, initial troponin less than 0.012, 3 hour troponin 0.333, proBNP 1580, TSH 1.810. She tested negative for influenza, RSV, and COVID. Brain CT showed no acute intracranial process. Chest x-ray showed no acute cardiopulmonary but did note a slightly enlarged cardiac silhouette. Initial EKG showed atrial flutter/tachycardia with rapid ventricular response and ST T-wave abnormalities in anterolateral leads. She converted to a sinus rhythm with a bolus of IV diltiazem with uatsdin of sinus rhythm. She was given aspirin 324 mg and is being admitted in this setting for close monitoring and Cardiology consultation. Review of Systems Review of Systems: 12 systems were reviewed and are negativ e except for as per HPI. [facility] Past Medical History Medical History (Updated 10/21/24 @ 21:54 by Carolina Smith PA-C) Chronic kidney disease, stage 3 Hyperlipidemia Hypertension Depression with anxiety Coronary artery disease Type 2 diabetes mellitus Irritable bowel syndrome Cancer of left breast status post chemo radiation and mastectomy Chronic obstructive pulmonary disease Congestive heart failure Headache Arthritis Anxiety Surgical History Surgical History (Updated 10/21/24 @ 21:49 by Carolina Smith PA-C) History of partial hysterectomy History of repair of left rotator cuff History of coronary artery bypass graft x 2 History of left mastectomy Family History Family History Father Alcoholism Daughter Depression Thyroid disorder Social History Social History (Updated 10/21/24 @ 21:53 by Carolina Smith PA-C) Social History: Surrogate medical decision maker: Breanna Ramirez, daughter. Code status: Full code. Smoking packs per day: 0.75 Smoking cigarettes per day: 15.0 Years smoked: 53 Smoking pack-years: 39.75 Smoking status: Current every day smoker Tobacco type: cigarettes Alcohol intake: never Substance use: never Do You Feel Safe in your Home?: Yes Lack of Transportation: No Lack of Food: Never True Current Housing: I Have Housing Concerned About Future Housing: No Difficulty Paying Gas/Electric Bills: No Difficulty Paying for Meds: No Currently Unemployed: No Education: Decline to Answer Difficulty w/ Childcare or Family Care: No Spiritual care concerns: No Meds Home Medications and Allergies Home Medications ?Medication ?Instructions ?Recorded ?Confirmed ?Type alprazolam 0.5 mg tablet (Xanax) 0.5 mg PO QHS PRN anxiety 03/08/23 10/21/24 History ascorbic acid (vitamin C) 250 mg 125 mg PO DAILY 03/08/23 10/21/24 History tablet aspirin 81 mg tablet,delayed 81 mg PO DAILY 03/08/23 10/21/24 History release (Adult Low Dose Aspirin) atorvastatin 20 mg tablet 20 mg PO QHS 03/08/23 10/21/24 History cetirizine 10 mg tablet (Zyrtec) 10 mg PO DAILY PRN allergy symptoms 03/08/23 10/21/24 History cranberry extract 200 mg capsule 36,000 mg PO DAILY 03/08/23 10/21/24 History dicyclomine 20 mg tablet 20 mg PO BID 03/08/23 10/21/24 History ferrous sulfate 325 mg (65 mg 325 mg PO DAILY 03/08/23 10/21/24 History iron) tablet furosemide 40 mg tablet (Lasix) 40 mg PO QAM 03/08/23 10/21/24 History gabapentin 800 mg tablet 800 mg PO QID 03/08/23 10/21/24 History glipizide 5 mg tablet 5 mg PO BID 03/08/23 10/21/24 History hydrocodone 7.5 mg-acetaminophen 1 tablet PO BID 03/08/23 10/21/24 History 750 mg tablet ibuprofen 800 mg tablet 800 mg PO TID PRN pain 03/08/23 10/21/24 History mecobalamin (vitamin B12) 5,000 5,000 mcg PO DAILY 03/08/23 10/21/24 History mcg chewable tablet metformin 1,000 mg tablet,extended 1,000 mg PO BID 03/08/23 10/21/24 History release 24hr (osmotic) metoprolol tartrate 25 mg tablet 25 mg PO BID 03/08/23 10/21/24 History multivitamin 1 tablet PO DAILY 03/08/23 10/21/24 History pantoprazole 40 mg tablet,delayed 40 mg PO QAM 03/08/23 10/21/24 History release potassium chloride 20 mEq 20 meq PO DAILY 03/08/23 10/21/24 History tablet,extended release sertraline 100 mg tablet 100 mg PO DAILY 03/08/23 10/21/24 History Allergies Allergy/AdvReac Type Severity Reaction Status Date / Time tape Allergy Mild rash Uncoded 10/21/24 14:04 Vital Signs Vital Signs - 24 hr 10/21/24 14:02 10/21/24 14:17 10/21/24 14:20 Temperature 97.8 F Pulse Rate 167 H 64 164 H Respiratory Rate 20 12 Blood Pressure 73/48 L 106/88 Pulse Oximetry 100 100 Oxygen Delivery Room Air 10/21/24 14:22 10/21/24 14:22 10/21/24 14:29 Temperature Pulse Rate 163 H 157 H Respiratory Rate Blood Pressure Pulse Oximetry 99 Oxygen Delivery Room Air 10/21/24 15:00 10/21/24 15:00 10/21/24 15:55 Temperature Pulse Rate 67 64 62 Respiratory Rate 14 14 Blood Pressure 119/63 Pulse Oximetry 100 99 Oxygen Delivery 10/21/24 16:35 10/21/24 19:02 10/21/24 20:13 Temperature 98.2 F Pulse Rate 65 74 73 Respiratory Rate 14 18 16 Blood Pressure 129/62 139/72 119/61 Pulse Oximetry 99 97 97 Oxygen Delivery 10/21/24 21:05 Temperature Pulse Rate 72 Respiratory Rate 16 Blood Pressure 156/69 H Pulse Oximetry 98 Oxygen Delivery Exam Narrative: General: Nontoxic-appearing female in the semi-Ashraf position in bed. Weight: 65.8 kg. BMI: 26.5. HEENT: PERRL, EOMI. Sclera anicteric. Oral mucosa moist. Neck: Supple. Respiratory: Lungs are clear to auscultation bilaterally. Cardiovascular: Regular rate and rhythm with S1-S2. Gastrointestinal: Abdomen is soft, nontender, and nondistended with positive bowel sounds. Skin: Warm and dry. Extremities: No cyanosis, clubbing, or edema. Radial and pedal pulses intact. Neurological: Alert. Cranial nerves 2-12 are grossly intact. No gross focal deficits to casual conversation. Psychiatric: Appropriate mood and affect. H&P: Results Labs Labs: Short CBC 10/21/24 Range/Units 14:20 WBC 11.7 H (4.5-10.0) K/mm3 Hgb 12.1 (12.0-15.0) g/dL Hct 38.7 (37.0-47.0) % Plt Count 335 (150-375) k/mm3 BMP 10/21/24 14:20 Sodium 138 Potassium 5.4 H Chloride 101 Carbon Dioxide 26 BUN 23 H Creatinine 1.67 H Glucose 264 H Calcium 9.3 Cardiac Enzymes 10/21/24 10/21/24 Range/Units 14:20 17:20 Troponin I < 0.012 0.333 H* D (0.000-0.034) ng/mL Liver Function 10/21/24 Range/Units 14:20 Total Bilirubin 0.2 (0.2-1.3) mg/dL AST 43 H (14-36) U/L ALT 30 (6-35) U/L Alkaline Phosphatase 104 (38-126) U/L Albumin 4.0 (3.5-5.1) g/dL Imaging Head CT 10/21/24 15:32 IMPRESSION: 1. No acute intracranial process. 2. Age-related changes including mild diffuse volume loss and mild to moderate scattered nonspecific white matter hypoattenuation consistent with chronic small vessel ischemic disease. 2. Bubbly mucus in the left sphenoid sinus. Correlate clinically for acute sinusitis. Chest X-Ray 10/21/24 15:39 IMPRESSION: 1. No acute cardiopulmonary pathology. Assessment and Plan Assessment and plan (1) Atrial tachycardia: Code(s): I47.19 - Other supraventricular tachycardia Status: Acute (2) Non-ST elevated myocardial infarction: Code(s): I21.4 - Non-ST elevation (NSTEMI) myocardial infarction Status: Acute (3) Coronary artery disease: Code(s): I25.10 - Atherosclerotic heart disease of [place] coronary artery without angina pectoris Status: Acute (4) Acute kidney injury superimposed on CKD: Code(s): N17.9 - Acute kidney failure, unspecified; N18.9 - Chronic kidney disease, unspecified Status: Acute (5) Hyperkalemia: Code(s): E87.5 - Hyperkalemia Status: Acute (6) Chronic obstructive pulmonary disease: Code(s): J44.9 - Chronic obstructive pulmonary disease, unspecified Status: Acute (7) Hypertension: Code(s): I10 - Essential (primary) hypertension Status: Acute (8) Type 2 diabetes mellitus: Code(s): E11.9 - Type 2 diabetes mellitus without complications Status: Acute Plan The patient presented to the emergency department for evaluation of racing heart and palpitations with mild chest discomfort and shortness of breath for approximately 1 hour prior to arrival as detailed in HPI. Labs, imaging, EKG, and all reports were personally reviewed. EKG showed atrial tachycardia with rates in the 160s. She was given a dose of IV metoprolol and a dose of IV diltiazem and she converted back into a normal sinus rhythm. She is on metoprolol tartrate 25 mg b.i.d. at home and that will be continued. GHQ5SY0- VASc is 6 and anticoagulation is indicated. This time she has been started on enoxaparin 1 mg/kg daily (dosed for her renal dysfunction) as her 3 and 6 hour troponins continue to climb. Cardiology has been consulted an echocardiogram is pending. TSH is noted to be within normal limits. Her creatinine is increased fr om baseline for unclear reasons. Avoid nephrotoxic agents and renally dose all medications. A renal ultrasound and urine electrolytes are pending at this time. Continue to monitor strict I/O and daily weights. Potassium was 5.4 on arrival but has normalized with appropriate treatment. No acute issues with regards to COPD. Nicotine patch ordered per patient request. Random glucose today was over 200 and her hemoglobin A1c is 7.7%. Initiate sliding scale insulin, Accu-Cheks, and hypoglycemic protocol. The rest of her home medications will be reviewed and resumed as appropriate. Findings and treatment plan were discussed with the patient. Questions were solicited and answered to satisfaction. The patient's medical management will be taken over by the hospitalist team in a.m. Quality VTE Prophylaxis VTE prophylaxis: pharmacologic ordered The patient has been admitted under observation status. Hospitalist MIPS Advance Care Plan I have confirmed that the patient's Advanced Care Plan is present, code status is documented, or surrogate decision maker is listed in patient medical record.: Yes Medication Reconciliation I have utilized all available resources to obtain, update and review the patients current medications (includes all prescriptions, OTC, herbals, cannabis, and nutritional supplements).: Yes
[2024-10-21 22:21] LABS: Anion Gap 5 mmol/L (4-12); Blood Urea Nitrogen 25 mg/dL (7-17); Calcium 9.3 mg/dL (8.4-10.2); Carbon Dioxide 30 mmol/L (22-30); Chloride 103 mmol/L (98-107); Estimated CRCL calculation 24 ml/min; Estimated Glomerular Filt Rate 26; Glucose 104 mg/dL (65-110); Potassium 4.7 mmol/L (3.4-5.0); Sodium 138 mmol/L (137-145)
[2024-10-21 22:22] LABS: Hemoglobin A1C 7.7 % (<5.7)
[2024-10-22] VITALS (21 sets, daily range): BP systolic 137–159; BP diastolic 56–74; PULSE 5–85; RESP 16–18; TEMP 36.5–37; O2SAT 94–100
[2024-10-22 00:07] LABS: CRP < 0.5 mg/dL (<1.0)
[2024-10-22] MEDS: GABAPENTIN 400 MG CAPSULE 800 MG PO ×5 (00:10→20:21)
[2024-10-22] MEDS: METOPROLOL TARTRATE 25 MG TABLET PO ×2 (00:10→09:44)
[2024-10-22] MEDS: HYDROcodone/acetaminophen (*CRX) 7.5-325 MG TABLET 1 TAB PO ×4 (00:10→22:36)
[2024-10-22] MEDS: ATORVASTATIN 20 MG TABLET PO (00:10)
[2024-10-22] MEDS: ENOXAPARIN 80 MG/0.8 ML SYRINGE 65 MG SUB-Q (00:11)
[2024-10-22] MEDS: NICOTINE (*PBKC) 21 MG PATCH 1 PATCH TRANSDERM ×2 (00:11→09:45)
[2024-10-22] MEDS: ALPRAZolam (*CRX) 0.5 MG TABLET PO ×2 (00:15→20:21)
[2024-10-22 00:41] LABS: Eosinophil Urine None Seen % (None Seen); Urine Eos QC 2nd Tech Confirmed
[2024-10-22 00:49] LABS: Creatinine Urine 104.6 mg/dL
[2024-10-22 01:05] LABS: Creatinine Urine 104.4 mg/dL
[2024-10-22 01:06] LABS: Potassium Urine Random 87.6 meq/L; Sodium Urine Random 66 meq/L
[2024-10-22 02:10] LABS: Total Protein Urine Random 359 mg/dL; Ur Ttl Prot Creatinine Ratio 3.43 mg/mg (0-0.20)
[2024-10-22 04:24] LABS: Hemoglobin 10.5 g/dL (12.0-15.0); Mean Corpuscular HGB Conc 30.9 g/dl (32-36); Mean Corpuscular Hemoglobin 28.4 pg (26-34); Mean Corpuscular Volume 91.9 fl (80-100); Mean Platelet Volume 9.8 fl (7.4-10.4); Platelet Count Result 285 k/mm3 (150-375); Red Cell Distribution Width 14.2 % (11.5-14.5); White Blood Count 10.1 K/mm3 (4.5-10.0)
[2024-10-22 05:05] LABS: Alanine Aminotransferase 27 U/L (6-35); Albumin Level 3.5 g/dL (3.5-5.1); Alkaline Phosphatase 100 U/L (38-126); Anion Gap 6 mmol/L (4-12); Aspartate Amino Transferase 38 U/L (14-36); Bilirubin,Total 0.3 mg/dL (0.2-1.3); Blood Urea Nitrogen 27 mg/dL (7-17); Carbon Dioxide 29 mmol/L (22-30); Chloride 104 mmol/L (98-107); Cholesterol 172 mg/dL (0-200); Creatine Kinase 99 U/L (30-135); Estimated CRCL calculation 23 ml/min; Estimated Glomerular Filt Rate 25; Glucose 101 mg/dL (65-110); HDL Direct 54 mg/dL; Magnesium 1.6 mg/dL (1.6-2.3); Potassium 4.3 mmol/L (3.4-5.0); Sodium 139 mmol/L (137-145); Triglycerides 227 mg/dL (<150)
[2024-10-22 05:17] LABS: LDL Cholesterol Direct 65 mg/dL
[2024-10-22 07:37] LABS: Glucose Point of Care 112 mg/dl (65-105)
[2024-10-22 09:31] LABS: Troponin I 0.918 ng/mL (0.000-0.034)
[2024-10-22] MEDS: CYANOCOBALAMIN 1,000 MCG TABLET 5000 MCG PO (09:43)
[2024-10-22] MEDS: DICYCLOMINE HCL 10 MG CAPSULE 20 MG PO ×2 (09:44→16:46)
[2024-10-22] MEDS: PANTOPRAZOLE 40 MG TABLET PO (09:44)
[2024-10-22] MEDS: MULTIVITAMINS THERAPEUTIC TAB (*BKC) 1 TABLET PO (09:44)
[2024-10-22] MEDS: ASPIRIN 81 MG ENTERIC TABLET PO (09:44)
[2024-10-22] MEDS: SERTRALINE HCL 50 MG TABLET 100 MG PO (09:44)
[2024-10-22] MEDS: FERROUS SULFATE 325 MG TABLET DR PO (09:45)
[2024-10-22] MEDS: ASCORBIC ACID 125 MG TABLET PO (10:00)
[2024-10-22 11:55] LABS: Glucose Point of Care 149 mg/dl (65-105)
--- NOTE | 2024-10-22 13:06 | P.CONCA_ITS ---
Assessment and Plan Assessment and plan (1) Non-ST elevation OK (NSTEMI): Code(s): I21.4 - Non-ST elevation (NSTEMI) myocardial infarction Status: Acute Assessment and Plan: Elevated troponins. Likely demand ischemia from her atrial flutter/tachycardia with rapid ventricular response. She does not describe angina in other circumstances be said when her heart rate is fast during her palpitations. Regardless, given her known CAD history in remote CABG, stress testing is eventually warranted. Would recommend a Lexiscan as an outpatient. In the meantime, continue atorvastatin but will increase the dose to 40 mg daily. Continue metoprolol will also increase its dose to 50 mg p.o. b.i.d. which will help her hypertension, CAD and arrhythmia. DC ibuprofen. Continue low-dose aspirin for now but will closely need to assess her hemoglobin especially given anemia in the addition of anticoagulant. (2) Hypertension: Code(s): I10 - Essential (primary) hypertension Status: Acute Assessment and Plan: Continue metoprolol. (3) Coronary artery disease: Code(s): I25.10 - Atherosclerotic heart disease of [place] coronary artery without angina pectoris Status: Acute Assessment and Plan: Continue statin, metoprolol, aspirin. Outpatient stress test. Echocardiogram shows preserved ejection fraction (4) Atrial flutter: Code(s): I48.92 - Unspecified atrial flutter Status: Acute Assessment and Plan: Likely atrial flutter. Chads Vasc score of at least 4. Anticoagulation is warranted. Will start her on your Xarelto 15 mg daily. Follow H&H. Will likely have her wear an outpatient monitor or potentially refer to electrophysiology for consideration of ablation especially if no AFib is likely seen (5) Hyperlipidemia: Code(s): E78.5 - Hyperlipidemia, unspecified Status: Acute Assessment and Plan: On statin (6) Chronic kidney disease, stage 3: Code(s): N18.30 - Chronic kidney disease, stage 3 unspecified Status: Acute Assessment and Plan: Worsened CKD. (7) Chronic obstructive pulmonary disease: Code(s): J44.9 - Chronic obstructive pulmonary disease, unspecified Status: Acute Assessment and Plan: Related to tobacco use. Tobacco abuse counseling performed History of Present Illness History of Present Illness Consult date/time: 10/22/24 13:06 Requesting physician: Ahsly Milton MD Consult reason: atrial fibrillation Reason For Visit: NSTEMI; afib with RVR (now sinus) Narrative: Reason for consultation: Atrial fibrillation, non-STEMI Date of service 10/22/2024 Requesting provider: Dr. Milton History patient is a 64-year-old female his history of coronary disease and history of bypass grafting in year 1999 while in [place]. She also has other risk factors including hypertension dyslipidemia COPD chronic smoker history of pancreatitis type 2 diabetes anxiety and sleep apnea. Presented to the hospital because of acute onset of rapid heartbeat/tachycardia. She states that she does have these episodes once every few months that usually last for up to 30 minutes at a time. Yesterday however her symptoms did not resolve and she came to the hospital for further workup evaluation. She did have some chest discomfort at the same time as well as some shortness of breath. No syncope or presyncope. She also will feel as if her hands arms legs and feet are numb. She describes a sensation as a pounding fast heartbeat. In the emergency department she was in a narrow complex tachycardia with a rate of around 160. She was given IV diltiazem and did subsequently convert to sinus rhythm. Her troponins were initially elevated in did peak between 1 and 2. There now back down trending. At present she feels as if she is back to her normal self. She is anxious to go home. She describes no chest pain and other circumstances. No shortness of breath, paroxysmal nocturnal dyspnea, orthopnea, edema, syncope or presyncope. Review of Systems 2 Review of Systems: All systems reviewed & are unremarkable except as noted in HPI and below Constitutional: Constitutional: Denies body ache(s) Eyes: Eyes: Denies blurry vision ENT: Reports Normal hearing present Cardiovascular: Cardiovascular: Reports chest pain and Reports palpitations Respiratory: Respiratory: Denies dyspnea on exertion Gastrointestinal: Gastrointestinal: Denies abdominal pain Genitourinary: Genitourinary: Denies hematuria Musculoskeletal: Musculoskeletal: Denies back pain Integumentary/Breasts: Skin/Breast: Denies skin pain Neurologic: Denies Abnormal speech present Psychiatric: Psychiatric: Denies anxiety Endocrine: Endocrine: Denies excessive sweating Hematologic/Lymphatic: Hematologic/Lymphatic: Denies easy bleeding Allergic/Immunologic: Allergic/Immunologic: Denies GI upset with certain foods PMFSH Past Medical History Medical History (Updated 10/22/24 @ 13:24 by Jamie Baldwin MD) Atrial flutter Chronic kidney disease, stage 3 Hyperlipidemia Hypertension Depression with anxiety Coronary artery disease Type 2 diabetes mellitus Irritable bowel syndrome Cancer of left breast status post chemo radiation and mastectomy Chronic obstructive pulmonary disease Congestive heart failure Headache Arthritis Anxiety Surgical History Surgical History (Updated 10/21/24 @ 21:49 by Carolina Smith PA-C) History of partial hysterectomy History of repair of left rotator cuff History of coronary artery bypass graft x 2 History of left mastectomy Family History Family History Father Alcoholism Daughter Depression Thyroid disorder Social History Social History (Updated 10/21/24 @ 21:53 by Carolina Smith PA-C) Social History: Surrogate medical decision maker: Breanna Ramirez, daughter. Code status: Full code. Smoking packs per day: 0.75 Smoking cigarettes per day: 15.0 Years smoked: 53 Smoking pack-years: 39.75 Smoking status: Current every day smoker Tobacco type: cigarettes Alcohol intake: never Substance use: never Do You Feel Safe in your Home?: Yes Lack of Transportation: No Lack of Food: Never True Current Housing: I Have Housing Concerned About Future Housing: No Difficulty Paying Gas/Electric Bills: No Difficulty Paying for Meds: No Currently Unemployed: No Education: Decline to Answer Difficulty w/ Childcare or Family Care: No Spiritual care concerns: No Meds Home Medications and Allergies Home Medications ?Medication ?Instructions ?Recorded ?Confirmed ?Type alprazolam 0.5 mg tablet (Xanax) 0.5 mg PO QHS PRN anxiety 03/08/23 10/21/24 History ascorbic acid (vitamin C) 250 mg 125 mg PO DAILY 03/08/23 10/21/24 History tablet aspirin 81 mg tablet,delayed 81 mg PO DAILY 03/08/23 10/21/24 History release (Adult Low Dose Aspirin) atorvastatin 20 mg tablet 20 mg PO QHS 03/08/23 10/21/24 History cetirizine 10 mg tablet (Zyrtec) 10 mg PO DAILY PRN allergy symptoms 03/08/23 10/21/24 History cranberry extract 200 mg capsule 36,000 mg PO DAILY 03/08/23 10/21/24 History dicyclomine 20 mg tablet 20 mg PO BID 03/08/23 10/21/24 History ferrous sulfate 325 mg (65 mg 325 mg PO DAILY 03/08/23 10/21/24 History iron) tablet furosemide 40 mg tablet (Lasix) 40 mg PO QAM 03/08/23 10/21/24 History gabapentin 800 mg tablet 800 mg PO QID 03/08/23 10/21/24 History glipizide 5 mg tablet 5 mg PO BID 03/08/23 10/21/24 History hydrocodone 7.5 mg-acetaminophen 1 tablet PO BID 03/08/23 10/21/24 History 750 mg tablet ibuprofen 800 mg tablet 800 mg PO TID PRN pain 03/08/23 10/21/24 History mecobalamin (vitamin B12) 5,000 5,000 mcg PO DAILY 03/08/23 10/21/24 History mcg chewable tablet metformin 1,000 mg tablet,extended 1,000 mg PO BID 03/08/23 10/21/24 History release 24hr (osmotic) metoprolol tartrate 25 mg tablet 25 mg PO BID 03/08/23 10/21/24 History multivitamin 1 tablet PO DAILY 03/08/23 10/21/24 History pantoprazole 40 mg tablet,delayed 40 mg PO QAM 03/08/23 10/21/24 History release potassium chloride 20 mEq 20 meq PO DAILY 03/08/23 10/21/24 History tablet,extended release sertraline 100 mg tablet 100 mg PO DAILY 03/08/23 10/21/24 History Allergies Allergy/AdvReac Type Severity Reaction Status Date / Time tape Allergy Mild rash Uncoded 10/21/24 14:04 Vital Signs Vital Signs - 24 hr 10/21/24 14:02 10/21/24 14:17 10/21/24 14:20 Temperature 36.6 C Pulse Rate 167 H 64 164 H Respiratory Rate 20 12 Blood Pressure 73/48 L 106/88 Pulse Oximetry 100 100 Oxygen Delivery Room Air 10/21/24 14:22 10/21/24 14:22 10/21/24 14:29 Temperature Pulse Rate 163 H 157 H Respiratory Rate Blood Pressure Pulse Oximetry 99 Oxygen Delivery Room Air 10/21/24 15:00 10/21/24 15:00 10/21/24 15:55 Temperature Pulse Rate 67 64 62 Respiratory Rate 14 14 Blood Pressure 119/63 Pulse Oximetry 100 99 Oxygen Delivery 10/21/24 16:35 10/21/24 19:02 10/21/24 20:13 Temperature 36.8 C Pulse Rate 65 74 73 Respiratory Rate 14 18 16 Blood Pressure 129/62 139/72 119/61 Pulse Oximetry 99 97 97 Oxygen Delivery 10/21/24 21:05 10/21/24 22:00 10/21/24 23:00 Temperature Pulse Rate 72 76 76 Respiratory Rate 16 16 Blood Pressure 156/69 H Pulse Oximetry 98 98 Oxygen Delivery Room Air 10/21/24 23:39 10/21/24 23:45 10/22/24 00:00 Temperature 36.6 C Pulse Rate 67 73 Respiratory Rate 16 Blood Pressure 149/69 H Pulse Oximetry 98 98 Oxygen Delivery Room Air 10/22/24 00:10 10/22/24 01:55 10/22/24 03:50 Temperature Pulse Rate 74 64 64 Respiratory Rate 16 Blood Pressure Pulse Oximetry 98 Oxygen Delivery Room Air 10/22/24 04:00 10/22/24 04:00 10/22/24 06:00 Temperature 36.9 C Pulse Rate 64 61 69 Respiratory Rate 18 Blood Pressure 144/56 H Pulse Oximetry 96 Oxygen Delivery 10/22/24 08:00 10/22/24 09:44 10/22/24 11:30 Temperature 36.8 C 36.9 C Pulse Rate 73 75 5 L Respiratory Rate 16 18 Blood Pressure 152/67 H 137/57 L Pulse Oximetry 95 94 Oxygen Delivery Exam 2 Narrative: Awake alert oriented appears stated age Const: General: comfortable and no acute distress HENMT: Face/Nose/Sinus: Normal nares present Mouth: Yes moist mucous membranes Eyes: Sclera: sclerae normal Neck: Neck: supple and no JVD Carotids: no bruits Chest: Other: No reproducible chest wall pain to palpation Resp: Effort & Inspection: normal respiratory effort Auscultation: clear to auscultation bilaterally Cardio: Rate: regular rate Rhythm: regular rhythm Heart sounds: no murmurs GI: Inspection: non-distended GI Palp: Yes Soft to palpation A uscultation: normal bowel sounds Skin: General skin exam: normal color Neuro: Speech: normal speech Sensory Exam: normal sensation Extrem: General: normal to inspection Psych: Mental Status: mental status grossly normal Affect: normal affect Results Labs and Meds 10/22/24 03:45 10/22/24 03:45 Lab results: Cardiac Enzymes 10/21/24 10/21/24 10/21/24 Range/Units 14:20 17:20 22:06 AST 43 H (14-36) U/L Troponin I < 0.012 0.333 H* D Cancelled (0.000-0.034) ng/mL 10/21/24 10/22/24 10/22/24 Range/Units 22:06 03:45 08:43 AST 38 H (14-36) U/L Troponin I 1.530 H* D 0.918 H* (0.000-0.034) ng/mL Coagulation 10/21/24 Range/Units 14:20 PT 12.8 (11.1-14.7) Seconds APTT 25.7 (22.3-36.8) Seconds Lipids 10/22/24 Range/Units 03:45 Triglycerides 227 H (<150) mg/dL Cholesterol 172 (0-200) mg/dL CBC 10/21/24 10/22/24 Range/Units 14:20 03:45 WBC 11.7 H 10.1 H (4.5-10.0) K/mm3 RBC 4.17 L 3.70 L (4.2-5.4) M/mm3 Hgb 12.1 10.5 L (12.0-15.0) g/dL Hct 38.7 34.0 L (37.0-47.0) % Plt Count 335 285 (150-375) k/mm3 Lymph # (Auto) 3.35 H (0.9-3.2) K/mm3 [place] # (Auto) 0.9 H (0.1-0.6) K/mm3 Eos # (Auto) 0.3 (0-0.3) K/mm3 Baso # (Auto) 0.1 (0.0-0.1) K/mm3 Comprehensive Metabolic Panel 10/21/24 10/21/24 10/22/24 Range/Units 14:20 22:06 03:45 Sodium 138 138 139 (137-145) mmol/L Potassium 5.4 H 4.7 4.3 (3.4-5.0) mmol/L Chloride 101 103 104 (98-107) mmol/L Carbon Dioxide 26 30 29 (22-30) mmol/L BUN 23 H 25 H 27 H (7-17) mg/dL Creatinine 1.67 H 1.93 H 1.97 H (0.7-1.0) mg/dL Glucose 264 H 104 101 (65-110) mg/dL Calcium 9.3 9.3 9.0 (8.4-10.2) mg/dL AST 43 H 38 H (14-36) U/L ALT 30 27 (6-35) U/L Alkaline Phosphatase 104 100 (38-126) U/L Total Protein 7.0 6.0 L (6.3-8.2) g/dL Albumin 4.0 3.5 (3.5-5.1) g/dL Intake and Output 10/21/24 10/22/24 10/22/24 23:59 07:59 15:59 Intake Total 500 150 Output Total 100 Balance 500 50 Intake: IV 500 Sodium Chloride 0.9% IV 500 ml 500 @ 999 mls/hr IV CONT .Q31M STA Rx#:[id number] Oral 150 Output: Urine 100 Other: # Unmeasured Voids 2 Patient Weight 10/22/24 23:59 Weight 65.8 kg EKG personally reviewed and independently interpreted showing initially in narrow complex tachycardia heart rate 160s probably atrial flutter although atrial tachycardia is not completely excluded but given her previous history of atrial fibrillation, most likely flutter.
--- NOTE | 2024-10-22 13:15 | PM.IMPN ---
Progress Note: A&P Assessment and Plan (1) Atrial flutter: Code(s): I48.92 - Unspecified atrial flutter Status: Acute Assessment and Plan: Patient presents with chest pain and tachycardia and found to have AFlutter. She states she has had these symptoms for years and did see a transfer agent but did not return for followup. She has not been on anticoagulation in the past EKG showing aflutter with rate of [address]-T wave changes in the anterolateral and high lateral leads. She was given a dose of IV metoprolol and a dose of IV diltiazem and she converted back into a normal sinus rhythm. She is on metoprolol tartrate 25 mg b.i.d. at home and was continued. [id number] is 6 and anticoagulation is indicated. Started on enoxaparin therapeutic dose and now changed to Xarelto TSH is normal. D-dimer is positive at 0.8. Echo showing EF 60-65% with grade I diastolic dysfunction. LA mildly enlarged and mild TR. Mild pulm HTN. Monitor on tele. Continue metoprolol. Check lower extremity venous Dopplers. Consider V/Q scan. (2) Non-ST elevated myocardial infarction: Code(s): I21.4 - Non-ST elevation (NSTEMI) myocardial infarction Status: Acute Assessment and Plan: Troponin peaked at 1.5 EKG as above. Echo showing no wall motion abnormalities. TC 172, LDL 65, HDL 54, TG 227. Cardiology consulted. [place] to be demand ischemia from the AFlutter with RVR. She did have chest pain with ST-T wave changes and stress test recommended. She is wanting to have this done inpatient [facility] (3) Acute kidney injury superimposed on CKD: Code(s): N17.9 - Acute kidney failure, unspecified; N18.9 - Chronic kidney disease, unspecified Status: Acute Assessment and Plan: Baseline Cr in August was 1.15. Cr was 1.7 and up to 1.9. Probably related to Lasix, Ibuprofen, and from the AFlutter/RVR. No urine eos noted. Prot/Cr ration 3.4grams. Cruz 66. FENa 0.9%. Renal US showing no hydronephrosis or renal calculi but showing medcial renal disease. Serum total protein and albumin okay. Check UA to exclude UTI to explain the high protein level. Continue to hold Lasix. NS x 1 Liter. (4) Coronary artery disease: Code(s): I25.10 - Atherosclerotic heart disease of [place] coronary artery without angina pectoris Status: Acute Assessment and Plan: Patient has a hx of CAD. ASA, Lipitor and metoprolol resumed. As above (5) Hyperkalemia: Code(s): E87.5 - Hyperkalemia Status: Acute Assessment and Plan: Potassium 5.4 on admission. Treated appropriately and this has normalized Monitor on tele for now. (6) Chronic obstructive pulmonary disease: Code(s): J44.9 - Chronic obstructive pulmonary disease, unspecified Status: Acute Assessment and Plan: No wheezing. Remains on room air. Chest x-ray clear. Continue monitor (7) Hypertension: Code(s): I10 - Essential (primary) hypertension Status: Acute Assessment and Plan: Patient's blood pressure was reviewed on 10/22 Blood pressure remains well controlled. Will continue to monitor. (8) Type 2 diabetes mellitus: Code(s): E11.9 - Type 2 diabetes mellitus without complications Status: Acute Assessment and Plan: The patient's blood glucose was reviewed on 10/22 Glucose remains well controlled. Continue AccuCheks covering with sliding scale. Hypoglycemia protocol available as needed. Continue to monitor. (9) Anemia: Code(s): D64.9 - Anemia, unspecified Status: Acute Assessment and Plan: Patient has a normal baseline hemoglobin at 12. Hemoglobin 12.1 on admission but did drop to 10.5. Probably related to IV fluids. Will check iron studies and B12/folate. Monitor closely while on anticoagulation. Plan Headache -CT of the head was performed in the ER which showed no acute findings. She did have bubbly mucus in the left sphenoid sinus possibly acute sinusitis. Will monitor clinically for now. DVT prophylaxis -Xarelto Code status - DNR Subjective Date/time seen: 10/22/24 13:15 Interval history: 64yo female smoker with history of CAD s/p CABG x2v, HTN, dyslipidemia, COPD, ANDREW, pancreatitis, DM type 2, depression, and anxiety who presented to the emergency department for evaluation of chest pain and a fast heart rate. Assuming care. Chart reviewed. No chest pain currently. She states the chest pain came on after she noted that her heart was racing. No recent increasing shortness of breath. No chest pain at home with activity. Her last heart catheterization was many years ago. Exam Narrative: AF 98.4 137/57 75 18 94% ra Gen - NARD Chest - CTA bilaterally, nml RR CV - RRR S1/S2. Tele showing no significant dysrhythmias Abd - Soft, NT/ND, Positive BS Ext - No pedal edema Neuro - Alert and appropriate Psych - Nml mood and affect Skin - Warm and dry Objective Data Vital Signs Vital Signs: Vital Signs - 24 hr 10/21/24 14:02 10/21/24 14:17 10/21/24 14:20 Temperature 97.8 F Pulse Rate 167 H 64 164 H Respiratory Rate 20 12 Blood Pressure 73/48 L 106/88 Pulse Oximetry 100 100 Oxygen Delivery Room Air 10/21/24 14:22 10/21/24 14:22 10/21/24 14:29 Temperature Pulse Rate 163 H 157 H Respiratory Rate Blood Pressure Pulse Oximetry 99 Oxygen Delivery Room Air 10/21/24 15:00 10/21/24 15:00 10/21/24 15:55 Temperature Pulse Rate 67 64 62 Respiratory Rate 14 14 Blood Pressure 119/63 Pulse Oximetry 100 99 Oxygen Delivery 10/21/24 16:35 10/21/24 19:02 10/21/24 20:13 Temperature 98.2 F Pulse Rate 65 74 73 Respiratory Rate 14 18 16 Blood Pressure 129/62 139/72 119/61 Pulse Oximetry 99 97 97 Oxygen Delivery 10/21/24 21:05 10/21/24 22:00 10/21/24 23:00 Temperature Pulse Rate 72 76 76 Respiratory Rate 16 16 Blood Pressure 156/69 H Pulse Oximetry 98 98 Oxygen Delivery Room Air 10/21/24 23:39 10/21/24 23:45 10/22/24 00:00 Temperature 98 F Pulse Rate 67 73 Respiratory Rate 16 Blood Pressure 149/69 H Pulse Oximetry 98 98 Oxygen Delivery Room Air 10/22/24 00:10 10/22/24 01:55 10/22/24 03:50 Temperature Pulse Rate 74 64 64 Respiratory Rate 16 Blood Pressure Pulse Oximetry 98 Oxygen Delivery Room Air 10/22/24 04:00 10/22/24 04:00 10/22/24 06:00 Temperature 98.4 F Pulse Rate 64 61 69 Respiratory Rate 18 Blood Pressure 144/56 H Pulse Oximetry 96 Oxygen Delivery 10/22/24 08:00 10/22/24 09:44 10/22/24 11:30 Temperature 98.2 F 98.4 F Pulse Rate 73 75 5 L Respiratory Rate 16 18 Blood Pressure 152/67 H 137/57 L Pulse Oximetry 95 94 Oxygen Delivery Intake/Output Intake/Output: Intake & Output 10/19/24 10/20/24 10/21/24 10/22/24 23:59 23:59 23:59 23:59 Intake Total 500 150 Output Total 100 Balance 500 50 Meds/Results Medications: Active Medications Generic Name Dose Route Start Last Admin Trade Name Freq PRN Reason Stop Dose Admin Acetaminophen 650 mg 10/21/24 19:03 Acetaminophen 325 Mg Tablet PO Q4H PRN Mild Pain (1-3) or Fever Hydrocodone Bitart/Acetaminophen 1 tab 10/22/24 00:10 10/22/24 09:43 Hydrocodone/Acetaminophen (*Crx) 7.5-325 Mg Tablet PO 1 tab BID LINA Administration Alprazolam 0.5 mg 10/21/24 23:32 10/22/24 00:15 Alprazolam (*Crx) 0.5 Mg Tablet PO 0.5 mg QHS PRN Administration anxiety Ascorbic Acid 125 mg 10/22/24 09:00 10/22/24 10:00 Ascorbic Acid 125 Mg Tablet PO 125 mg DAILY LINA Administration Aspirin 81 mg 10/22/24 09:00 10/22/24 09:44 Aspirin 81 Mg Enteric Tablet PO 81 mg DAILY LINA Administration Atorvastatin Calcium 20 mg 10/22/24 00:05 10/22/24 00:10 Atorvastatin 20 Mg Tablet PO 20 mg QHS LINA Administration Cyanocobalamin 5,000 mcg 10/22/24 09:00 10/22/24 09:43 Cyanocobalamin 1,000 Mcg Tablet PO 5,000 mcg QAM LINA Administration Dextrose 12.5 gm 10/21/24 19:03 Dextrose 50% 25 Gm/50 Ml Syringe IV PUSH PRN PRN Hypoglycemia Protocol Dextrose 12.5 gm 10/21/24 23:29 Dextrose 50% 25 Gm/50 Ml Syringe IV PUSH PRN PRN Hypoglycemia Protocol Dicyclomine HCl 20 mg 10/22/24 09:00 10/22/24 09:44 Dicyclomine Hcl 10 Mg Capsule PO 20 mg BID [facility] Administration Enoxaparin Sodium 65 mg 10/21/24 23:40 10/22/24 00:11 Enoxaparin 80 Mg/0.8 Ml Syringe SUB-Q 65 mg DAILY@2200 [facility] Administration Ferrous Sulfate 325 mg 10/22/24 09:00 10/22/24 09:45 Ferrous Sulfate [address] PO 325 mg DAILY LINA Administration Gabapentin 800 mg 10/22/24 00:10 10/22/24 09:44 Gabapentin 400 Mg Capsule PO 800 mg QID [facility] Administration Glucagon 1 mg 10/21/24 19:03 Glucagon For Inj 1 Mg Vial IM PRN PRN Hypoglycemia Protocol Glucagon 1 mg 10/21/24 23:29 Glucagon For Inj 1 Mg Vial IM PRN PRN Hypoglycemia Protocol Glucose 15 gm 10/21/24 19:03 Glucose Oral Gel 15 Gm Of Glucse In 37.5 Gm Tube PO PRN PRN Hypoglycemia Protocol Glucose 15 gm 10/21/24 23:29 Glucose Oral Gel 15 Gm Of Glucse In 37.5 Gm Tube PO PRN PRN Hypoglycemia Protocol Dextrose 1,000 mls @ 100 mls/hr 10/21/24 19:03 Dextrose 5% 1,000 Ml IVPB PRN PRN Hypoglycemia Protocol Dextrose 1,000 mls @ 100 mls/hr 10/21/24 23:29 Dextrose 5% 1,000 Ml IVPB PRN PRN Hypoglycemia Protocol Insulin Aspart 3 - 6 units 10/22/24 08:00 10/22/24 08:06 Insulin Aspart (*Bkc) 100 Units/Ml SUB-Q Not Given TIDWM [facility] Protocol Insulin Aspart 1 - 3 units 10/22/24 21:00 Insulin Aspart (*Bkc) 100 Units/Ml SUB-Q HS [facility] Protocol Loratadine 10 mg 10/21/24 23:38 Loratadine 10 Mg Tablet PO DAILY PRN allergy symptoms Metoprolol Tartrate 25 mg 10/21/24 23:40 10/22/24 09:44 Metoprolol Tartrate 25 Mg Tablet PO 25 mg Q12HR [facility] Administration Multivitamins Therapeutic 1 tablet 10/22/24 09:00 10/22/24 09:44 Multivitamins Therapeutic Tab (*Bkc) PO 1 tablet DAILY [facility] Administration Nicotine 1 patch 10/21/24 23:30 10/22/24 09:45 Nicotine (*Pbkc) 21 Mg Patch TRANSDERM 1 patch DAILY LINA Administration Ondansetron HCl 4 mg 10/21/24 19:03 Ondansetron Inj 4 Mg/2 Ml Vial IV PUSH Q4H PRN Nausea Pantoprazole Sodium 40 mg 10/22/24 09:00 10/22/24 09:44 Pantoprazole 40 Mg Tablet PO 40 mg QAM LINA Administration Perflutren Lipid Microsphere 0 ml 10/21/24 23:29 Perflutren Lipid Microspheres 1.5 Ml Vial Diluted To 10 Ml Total Volume IV PUSH 10/24/24 23:29 ONCE PRN adequate visualization Protocol Sertraline HCl 100 mg 10/22/24 09:00 10/22/24 09:44 Sertraline Hcl 50 Mg Tablet PO 100 mg DAILY LINA Administration Radiology Results: ITS Impressions Head CT 10/21/24 15:32 IMPRESSION: 1. No acute intracranial process. 2. Age-related changes including mild diffuse volume loss and mild to moderate scattered nonspecific white matter hypoattenuation consistent with chronic small vessel ischemic disease. 2. Bubbly mucus in the left sphenoid sinus. Correlate clinically for acute sinusitis. Chest X-Ray 10/21/24 15:39 IMPRESSION: No acute cardiopulmonary pathology. Renal Ultrasound 10/22/24 11:58 IMPRESSION: No hydronephrosis or renal calculi. Findings suggesting medical renal disease. Labs Labs: Laboratory Results - last 24 hr 10/21/24 10/21/24 10/21/24 14:20 14:51 15:06 WBC 11.7 H RBC 4.17 L Hgb 12.1 Hct 38.7 MCV 92.8 MCH 29.0 MCHC 31.3 L RDW 14.1 Plt Count 335 MPV 9.7 Immature Gran % (Auto) 0.4 Neut % (Auto) 59.8 Lymph % (Auto) 28.6 Rush % (Auto) 7.9 Eos % (Auto) 2.8 Baso % (Auto) 0.5 Lymph # (Auto) 3.35 H Rush # (Auto) 0.9 H Eos # (Auto) 0.3 Baso # (Auto) 0.1 Abs Immat Gran (auto) 0.05 H Absolute Neuts (auto) 7.0 H Absolute Nucleated RBC 0.000 Nucleated RBC % 0.0 PT 12.8 INR 0.9 APTT 25.7 D-Dimer 0.84 H Sodium 138 Potassium 5.4 H Chloride 101 Carbon Dioxide 26 Anion Gap 11 BUN 23 H Creatinine 1.67 H Estim Creat Clear Calc 27 Estimated GFR 31 L Glucose 264 H POC Capillary Glucose 231 H Hemoglobin A1c Calcium 9.3 Magnesium Total Bilirubin 0.2 AST 43 H ALT 30 Alkaline Phosphatase 104 Total Creatine Kinase Troponin I < 0.012 C-Reactive Protein NT-Pro-B Natriuret Pep 1580 H Total Protein 7.0 Albumin 4.0 Triglycerides Cholesterol LDL Cholesterol Direct HDL Direct Lipase 243 TSH 1.810 Urine Eosinophils U Random Total Protein Ur Random Sodium Ur Random Potassium Urine Creatinine Protein/Creat Ratio 2 Influenza A (RT-PCR) Negative Influenza B (RT-PCR) Negative RSV (RT-PCR) Negative SARS-CoV-2 RNA (RT-PCR) Negative 10/21/24 10/21/24 10/21/24 16:33 17:20 22:06 WBC RBC Hgb Hct MCV MCH MCHC RDW Plt Count MPV Immature Gran % (Auto) Neut % (Auto) Lymph % (Auto) Rush % (Auto) Eos % (Auto) Baso % (Auto) Lymph # (Auto) Rush # (Auto) Eos # (Auto) Baso # (Auto) Abs Immat Gran (auto) Absolute Neuts (auto) Absolute Nucleated RBC Nucleated RBC % PT INR APTT D-Dimer Sodium 138 Potassium 4.7 Chloride 103 Carbon Dioxide 30 Anion Gap 5 BUN 25 H Creatinine 1.93 H Estim Creat Clear Calc 24 Estimated GFR 26 L Glucose 104 POC Capillary Glucose 77 Hemoglobin A1c 7.7 H Calcium 9.3 Magnesium Total Bilirubin AST ALT Alkaline Phosphatase Total Creatine Kinase Troponin I 0.333 H* D Cancelled C-Reactive Protein NT-Pro-B Natriuret Pep Total Protein Albumin Triglycerides Cholesterol LDL Cholesterol Direct HDL Direct Lipase TSH Urine Eosinophils U Random Total Protein Ur Random Sodium Ur Random Potassium Urine Creatinine Protein/Creat Ratio 2 Influenza A (RT-PCR) Influenza B (RT-PCR) RSV (RT-PCR) SARS-CoV-2 RNA (RT-PCR) 10/21/24 10/22/24 10/22/24 22:06 00:25 00:25 WBC RBC Hgb Hct MCV MCH MCHC RDW Plt Count MPV Immature Gran % (Auto) Neut % (Auto) Lymph % (Auto) Rush % (Auto) Eos % (Auto) Baso % (Auto) Lymph # (Auto) Rush # (Auto) Eos # (Auto) Baso # (Auto) Abs Immat Gran (auto) Absolute Neuts (auto) Absolute Nucleated RBC Nucleated RBC % PT INR APTT D-Dimer Sodium Potassium Chloride Carbon Dioxide Anion Gap BUN Creatinine Estim Creat Clear Calc Estimated GFR Glucose POC Capillary Glucose Hemoglobin A1c Calcium Magnesium Total Bilirubin AST ALT Alkaline Phosphatase Total Creatine Kinase Troponin I 1.530 H* D C-Reactive Protein < 0.5 NT-Pro-B Natriuret Pep Total Protein Albumin Triglycerides Cholesterol LDL Cholesterol Direct HDL Direct Lipase TSH Urine Eosinophils None seen U Random Total Protein 359 Ur Random Sodium 66 Ur Random Potassium 87.6 Urine Creatinine 104.6 104.4 Protein/Creat Ratio 2 3.43 H Influenza A (RT-PCR) Influenza B (RT-PCR) RSV (RT-PCR) SARS-CoV-2 RNA (RT-PCR) 10/22/24 10/22/24 10/22/24 03:45 07:33 08:43 WBC 10.1 H RBC 3.70 L Hgb 10.5 L Hct 34.0 L MCV 91.9 MCH 28.4 MCHC 30.9 L RDW 14.2 Plt Count 285 MPV 9.8 Immature Gran % (Auto) Neut % (Auto) Lymph % (Auto) Rush % (Auto) Eos % (Auto) Baso % (Auto) Lymph # (Auto) Rush # (Auto) Eos # (Auto) Baso # (Auto) Abs Immat Gran (auto) Absolute Neuts (auto) Absolute Nucleated RBC Nucleated RBC % PT INR APTT D-Dimer Sodium 139 Potassium 4.3 Chloride 104 Carbon Dioxide 29 Anion Gap 6 BUN 27 H Creatinine 1.97 H Estim Creat Clear Calc 23 Estimated GFR 25 L Glucose 101 POC Capillary Glucose 112 H Hemoglobin A1c Calcium 9.0 Magnesium 1.6 Total Bilirubin 0.3 AST 38 H ALT 27 Alkaline Phosphatase 100 Total Creatine Kinase 99 Troponin I 0.918 H* C-Reactive Protein NT-Pro-B Natriuret Pep Total Protein 6.0 L Albumin 3.5 Triglycerides 227 H Cholesterol 172 LDL Cholesterol Direct 65 HDL Direct 54 Lipase TSH Urine Eosinophils U Random Total Protein Ur Random Sodium Ur Random Potassium Urine Creatinine Protein/Creat Ratio 2 Influenza A (RT-PCR) Influenza B (RT-PCR) RSV (RT-PCR) SARS-CoV-2 RNA (RT-PCR) 10/22/24 11:32 WBC RBC Hgb Hct MCV MCH MCHC RDW Plt Count MPV Immature Gran % (Auto) Neut % (Auto) Lymph % (Auto) Rush % (Auto) Eos % (Auto) Baso % (Auto) Lymph # (Auto) Rush # (Auto) Eos # (Auto) Baso # (Auto) Abs Immat Gran (auto) Absolute Neuts (auto) Absolute Nucleated RBC Nucleated RBC % PT INR APTT D-Dimer Sodium Potassium Chloride Carbon Dioxide Anion Gap BUN Creatinine Estim Creat Clear Calc Estimated GFR Glucose POC Capillary Glucose 149 H Hemoglobin A1c Calcium Magnesium Total Bilirubin AST ALT Alkaline Phosphatase Total Creatine Kinase Troponin I C-Reactive Protein NT-Pro-B Natriuret Pep Total Protein Albumin Triglycerides Cholesterol LDL Cholesterol Direct HDL Direct Lipase TSH Urine Eosinophils U Random Total Protein Ur Random Sodium Ur Random Potassium Urine Creatinine Protein/Creat Ratio 2 Influenza A (RT-PCR) Influenza B (RT-PCR) RSV (RT-PCR) SARS-CoV-2 RNA (RT-PCR)
[2024-10-22 16:17] LABS: Glucose Point of Care 111 mg/dl (65-105)
[2024-10-22] MEDS: RIVAROXABAN 15 MG TABLET PO (16:47)
[2024-10-22] MEDS: SODIUM CHLORIDE 0.9% IV 1,000 ML 100 ML IV CONT (17:45)
[2024-10-22 18:09] LABS: Add Urine Microscopic? YES; Appearance Urine Clear (Clear); Bacteria Urine None Seen /hpf; Bilirubin Urine Negative (Negative); Blood Urine Negative (Negative); Color Urine Yellow (Yellow); Glucose Urine UA Negative (Negative); Ketones Urine Negative (Negative); Leukocyte Esterase Ur Negative LEU/UL (Negative); Nitrate Urine Negative (Negative); Non Pathogenic Casts 0-2; Protein Urine 1+ mg/dL (Negative); RBC Urine 0-2 /hpf (0-2); Specific Grav Ur 1.004 (1.001-1.035); Squamous Epithelial Cell Urine None Seen /hpf (Few); Urobilinogen Urine 0.2 mg/dL (<2.0); WBC Urine 0-5 /hpf (0-3); pH Urine 7.5 (5.0-9.0)
[2024-10-22] MEDS: ATORVASTATIN 40 MG TABLET PO (20:21)
[2024-10-22] MEDS: METOPROLOL TARTRATE 50 MG TAB PO (20:21)
[2024-10-22 20:55] LABS: Glucose Point of Care 160 mg/dl (65-105)
--- NOTE | 2024-10-22 23:29 | ECHO_ITS ---
Patient Info Name: Cassi Taylor Age: 64 years : 1960 Gender: Female Ht: 62 in Wt: 145 lbs BSA: 1.71 m2 HR: 69 bpm BP: 144 / 56 mmHg Heart Rhythm: Sinus Rhythm Technical Quality: Fair Exam Date: 10/22/2024 9:44 AM Exam Location: Echo Lab Patient Status: Inpatient Admit Date: 10/22/2024 Staff Ordering Physician: Carolina Smith PA-C Environmental Issues Instructor: Aleisha Lopez RDCS Attending Provider: Vinay Varghese MD Referring Physician: Sarah AWAN; Exam Type: CA echo doppler color flow Study Info Indications - NSTEMI Complete two-dimensional, color flow and Doppler transthoracic echocardiogram is performed. Summary 1. Complete two-dimensional, color flow and Doppler transthoracic echocardiogram is performed. 2. Left ventricular chamber dimension is normal. 3. Left ventricular systolic function is normal, estimated at 60-65%. 4. There is mildly increased left ventricular wall thickness. 5. The left ventricular diastolic function is grade I diastolic dysfunction. 6. Left atrial chamber dimension is mildly enlarged. 7. The mitral valve has thickened leaflets. 8. There is mild tricuspid valve regurgitation. 9. Mild pulmonary hypertension, estimated pulmonary arterial systolic pressure is 38 mmHg. 10. There is mild pulmonic regurgitation. Left Ventricle Left ventricular chamber dimension is normal. Left ventricular systolic function is normal, estimated at 60-65%. There is mildly increased left ventricular wall thickness. The left ventricular diastolic function is grade I diastolic dysfunction. Right Ventricle Right ventricular chamber dimension is normal. Right ventricular systolic function is normal. Left Atria Left atrial chamber dimension is mildly enlarged. Right Atria Right atrial chamber dimension is normal. Atrial Septum Intact interatrial septum visualized by color flow imaging. Aortic Valve The aortic valve is trileaflet. There is mild aortic valve sclerosis. There is no aortic valve stenosis. There is trace aortic valve regurgitation. Pulmonic Valve The pulmonic valve is normal. There is no pulmonic valve stenosis. There is mild pulmonic regurgitation. Mitral Valve The mitral valve has thickened leaflets. There is no mitral valve stenosis. There is trace mitral valve regurgitation. Tricuspid Valve The tricuspid valve leaflets are normal. There is no significant tricuspid valve stenosis. There is mild tricuspid valve regurgitation. Mild pulmonary hypertension, estimated pulmonary arterial systolic pressure is 38 mmHg. Pericardium/Pleural The pericardium appears normal. There is no pericardial effusion. Inferior Vena Cava Normal inferior vena cava with >50% collapse upon inspiration consistent with normal right atrial pressure, 8 mmHg. Aorta There is mild aortic atherosclerosis. Left Ventricular Outflow Tract Name Value Normal LVOT 2D LVOT Diameter 2.0 cm LVOT Doppler LVOT Peak Gradient 8 mmHg LVOT Mean Gradient 4 mmHg LVOT VTI 32 cm LVOT VTI/AV VTI Ratio 0.9 LVOT Stroke Volume 97 ml Pulmonic Valve Name Value Normal RVOT Doppler RVOT Peak Gradient 2 mmHg PV Doppler PV Peak Gradient 4 mmHg Mitral Valve Name Value Normal MV Doppler MV Decel Eddy 226 cm/s2 MV PHT 90 ms MV Area (PHT) 2.4 cm2 4.0-5.0 MV Diastolic Function MV E Peak Velocity 70 cm/s MV A Peak Velocity 125 cm/s MV E/A 0.6 MV Decel Time 310 ms MV Annular TDI MV E/e' (Septal) 11.5 <=8.0 MV E/e' (Lateral) 9.7 <=8.0 MV E/e' (Average) 10.6 Tricuspid Valve Name Value Normal TV Regurgitation Doppler TR Peak Velocity 275 cm/s TR Peak Gradient 30 mmHg Estimated PAP/RSVP RA Pressure 8 mmHg <=5 PA Systolic Pressure 38 mmHg <36 RV Systolic Pressure 38 mmHg <36 Aortic Valve Name Value Normal AV Doppler AV Peak Velocity 168 cm/s AV Peak Gradient 11 mmHg AV Mean Gradient 6 mmHg AV VTI 38 cm AV Area (Cont Eq VTI) 2.6 cm2 >=3.0 AV Regurgitation 2D LVOT Area 3.0 cm2 Ventricles Name Value Normal LV Dimensions 2D/MM IVS Diastolic Thickness (2D) 1.1 cm 0.6-1.0 LVID Diastole (2D) 4.0 cm 3.8-5.2 LVIW Diastolic Thickness (2D) 1.1 cm 0.6-0.9 LVID Systole (2D) 2.7 cm 2.2-3.5 LVOT Diameter 2.0 cm LV Mass (2D Cubed) 146.63 g 67.00-162.00 LV Mass Index (2D Cubed) 86 g/m2 43-95 Relative Wall Thickness (2D) 0.55 LV Fractional Shortening/Ejection Fraction 2D/MM LV Fractional Shortening (2D) 33 % 27-45 LV EF (2D Teicholz) 62 % 54-74 LV Diastolic Volume (4C MOD) 89 ml LV EF (4C MOD) 61 % LV Diastolic Volume (2C MOD) 98 ml LV EF (2C MOD) 63 % LV Diastolic Volume (BP MOD) 94 ml 46-106 LV Diastolic Volume Index (BP MOD) 55 ml/m2 29-61 LV Systolic Volume (BP MOD) 36 ml 14-42 LV Systolic Volume Index (BP MOD) 21 ml/m2 8-24 LV EF (BP MOD) 61 % 54-74 LV Diastolic Length (4C) 7.6 cm LV Systolic Length (4C) 6.3 cm LV Stroke Volume (4C MOD) 54 ml Atria Name Value Normal LA Dimensions LA Volume (4C A-L) 47 ml LA Volume (BP A-L) 55 ml RA Dimensions RA Area (4C) 15.6 cm2 <=18.0 Report Signatures
[2024-10-23] VITALS (12 sets, daily range): BP systolic 134–163; BP diastolic 46–68; PULSE 49–87; RESP 14–18; TEMP 36.6–36.7; O2SAT 94–100
--- NOTE | 2024-10-23 | EST_ITS ---
Patient Info Name: Cassi Taylor Age: 64 years : 1960 Gender: Female Ht: 62 in Wt: 145 lbs BSA: 1.71 m2 HR: 72 bpm BP: 138 / 70 mmHg Exam Date: 10/23/2024 9:22 AM Exam Location: Echo Lab Patient Status: Inpatient Admit Date: 10/22/2024 Staff Ordering Physician: Med Aguilar MD Attending Provider: Vinay Varghese MD Exercise Technologist: david sanchez Nurse: Tawana Alfaro APN Exam Type: CA stress bakari w NM Study Info Indications R07.9 - Chest pain, unspecified A regadenoson stress test was performed. Summary 1. Borderline ST depression - inferolateral leads during stress test. 2. Please correlate with nuclear medicine images, reported separately. 3. Stress test supervised by Tawana Alfaro NP. Stress test interpreted by Ramses Carbone MD. Protocol: Lexiscan Stress ECG Details Stage: REST Duration (min): 1 min : 0 sec HR (bpm): 68 SBP (mmHg): 138 DBP (mmHg): 70 Stage: REST Duration (min): 8 min : 32 sec HR (bpm): 59 SBP (mmHg): 138 DBP (mmHg): 70 Stage: STAGE 1 Duration (min): 0 min : 59 sec HR (bpm): 76 SBP (mmHg): 138 DBP (mmHg): 70 Stage: RECOVERY Duration (min): 1 min : 0 sec HR (bpm): 97 SBP (mmHg): 148 DBP (mmHg): 54 Stage: RECOVERY Duration (min): 2 min : 0 sec HR (bpm): 95 SBP (mmHg): 148 DBP (mmHg): 54 Stage: RECOVERY Duration (min): 3 min : 0 sec HR (bpm): 87 SBP (mmHg): 155 DBP (mmHg): 55 Stage: RECOVERY Duration (min): 4 min : 0 sec HR (bpm): 95 SBP (mmHg): 155 DBP (mmHg): 55 Stage: RECOVERY Duration (min): 4 min : 33 sec HR (bpm): 87 SBP (mmHg): 155 DBP (mmHg): 55 Rest HR: 59 bpm Peak HR: 99 bpm Rest Sys BP: 138 mmHg Peak Sys BP: 155 mmHg Max Pred HR: 155 bpm % Max Pred HR: 64 % Target HR: 132 bpm Max RPP: 15,345 bpm*mmHg Total Time: 1 min : 0 sec Rest Owens BP: 70 mmHg Peak Owens BP: 55 mmHg Total Dose: 0.4 mg Resting ECG Sinus rhythm. Stress ECG Borderline ST depression - inferolateral leads during stress test. Arrhythmias None. Report Signatures
[2024-10-23 04:37] LABS: Basophils Absolute Auto 0.1 K/mm3 (0.0-0.1); Basophils Percent Auto 0.9 % (0.2-1.2); Eosinophils Absolute Auto 0.3 K/mm3 (0-0.3); Eosinophils Percent Auto 4.3 % (0-4.4); Hematocrit 38.4 % (37.0-47.0); Hemoglobin 12.2 g/dL (12.0-15.0); Immature Granulocyte Absolute 0.02 K/mm3 (0.00-0.031); Immature Granulocyte Percent A 0.3 % (0-0.5); Lymphocytes Absolute Auto 2.75 K/mm3 (0.9-3.2); Lymphocytes Percent Auto 36.9 % (18.3-44.2); Mean Corpuscular HGB Conc 31.8 g/dl (32-36); Mean Corpuscular Hemoglobin 28.8 pg (26-34); Mean Corpuscular Volume 90.8 fl (80-100); Mean Platelet Volume 9.4 fl (7.4-10.4); Monocytes Absolute Auto 0.5 K/mm3 (0.1-0.6); Monocytes Percent Auto 6.7 % (2.6-8.5); Neutrophils Absolute Auto 3.8 K/mm3 (1.3-6.7); Neutrophils Percent Auto 50.9 % (45.5-73.1); Platelet Count Result 326 k/mm3 (150-375); Red Blood Count 4.23 M/mm3 (4.2-5.4); Red Cell Distribution Width 13.6 % (11.5-14.5); White Blood Count 7.5 K/mm3 (4.5-10.0)
[2024-10-23 04:54] LABS: Albumin Level 4.2 g/dL (3.5-5.1); Anion Gap 7 mmol/L (4-12); Blood Urea Nitrogen 23 mg/dL (7-17); Calcium 9.5 mg/dL (8.4-10.2); Carbon Dioxide 29 mmol/L (22-30); Chloride 102 mmol/L (98-107); Estimated CRCL calculation 27 ml/min; Estimated Glomerular Filt Rate 31; Glucose 141 mg/dL (65-110); Magnesium 1.8 mg/dL (1.6-2.3); Potassium 4.3 mmol/L (3.4-5.0); Sodium 138 mmol/L (137-145)
[2024-10-23 05:05] LABS: Iron 67 ug/dL (37-170)
[2024-10-23 05:06] LABS: Complement C3 122 mg/dL (88-165)
[2024-10-23 05:15] LABS: Percent Iron Saturation 21 % (20-50)
[2024-10-23 05:43] LABS: Vitamin B12 > 1000.0 pg/mL (239-931)
[2024-10-23 06:23] LABS: Folic Acid > 20.0 ng/mL (2.76->20)
[2024-10-23 07:12] LABS: Glucose Point of Care 139 mg/dl (65-105)
[2024-10-23] MEDS: DICYCLOMINE HCL 10 MG CAPSULE 20 MG PO (08:23)
[2024-10-23] MEDS: ASCORBIC ACID 125 MG TABLET PO (08:24)
[2024-10-23] MEDS: FERROUS SULFATE 325 MG TABLET DR PO (08:24)
[2024-10-23] MEDS: ASPIRIN 81 MG ENTERIC TABLET PO (08:24)
[2024-10-23] MEDS: HYDROcodone/acetaminophen (*CRX) 7.5-325 MG TABLET 1 TAB PO (08:24)
[2024-10-23] MEDS: MULTIVITAMINS THERAPEUTIC TAB (*BKC) 1 TABLET PO (08:24)
[2024-10-23] MEDS: SERTRALINE HCL 50 MG TABLET 100 MG PO (08:24)
[2024-10-23] MEDS: GABAPENTIN 400 MG CAPSULE 800 MG PO (08:24)
[2024-10-23] MEDS: PANTOPRAZOLE 40 MG TABLET PO (08:24)
[2024-10-23] MEDS: CYANOCOBALAMIN 1,000 MCG TABLET 5000 MCG PO (08:24)
--- NOTE | 2024-10-23 09:40 | P.PNCA_ITS ---
Progress Note: A&P Assessment and Plan (1) Non-ST elevation GA (NSTEMI): Code(s): I21.4 - Non-ST elevation (NSTEMI) myocardial infarction Status: Acute Assessment and Plan: Elevated troponins. Likely demand ischemia from her atrial flutter/tachycardia with rapid ventricular response. She does not describe angina in other circumstances be said when her heart rate is fast during her palpitations. Regardless, given her known CAD history in remote CABG, stress testing is eventually warranted. Lexiscan recommended outpatient but was ordered here and performed this morning. Further recommendations to follow. * Continue atorvastatin 40mg daily * Continue metoprolol will also increase its dose to 50 mg p.o. b.i.d.. * Continue low-dose aspirin for now but will closely need to assess her hemoglobin especially given anemia in the addition of anticoagulant. (2) Hypertension: Code(s): I10 - Essential (primary) hypertension Status: Acute Assessment and Plan: Continue metoprolol. (3) Coronary artery disease: Code(s): I25.10 - Atherosclerotic heart disease of [place] coronary artery without angina pectoris Status: Acute Assessment and Plan: Continue statin, metoprolol, aspirin. Echocardiogram shows preserved ejection fraction. Lexiscan results pending. (4) Atrial flutter: Code(s): I48.92 - Unspecified atrial flutter Status: Acute Assessment and Plan: Likely atrial flutter. Chads Vasc score of at least 4. Anticoagulation is warranted. * Continue Xarelto 15 mg daily. * Follow H&H. * Will likely have her wear an outpatient monitor or potentially refer to electrophysiology for consideration of ablation (5) Hyperlipidemia: Code(s): E78.5 - Hyperlipidemia, unspecified Status: Acute Assessment and Plan: On statin (6) Chronic kidney disease, stage 3: Code(s): N18.30 - Chronic kidney disease, stage 3 unspecified Status: Acute Assessment and Plan: Worsened CKD. (7) Chronic obstructive pulmonary disease: Code(s): J44.9 - Chronic obstructive pulmonary disease, unspecified Status: Acute Assessment and Plan: Related to tobacco use. Tobacco abuse counseling performed Subjective Date/time seen: 10/23/24 09:40 Interval history: Cardiology follow-up visit Seeing patient in the cardiac stress lab. She denies any chest pain, shortness of breath, palpitations. She is in sinus rhythm. Tolerated Lexiscan well. Review of Systems Review of Systems: All systems reviewed & are unremarkable except as noted in HPI and below Constitutional: Constitutional: Denies body ache(s) and Denies excessive sweating Eyes: Eyes: Denies blurry vision ENT: Reports Normal hearing present Cardiovascular: Cardiovascular: Reports chest pain, Reports palpitations and Denies dyspnea on exertion Respiratory: Respiratory: Denies dyspnea on exertion Gastrointestinal: Gastrointestinal: Denies abdominal pain Genitourinary: Genitourinary: Denies hematuria Musculoskeletal: Musculoskeletal: Denies back pain Integumentary/Breasts: Skin/Breast: Denies skin pain Neurologic: Reports Normal hearing present and Denies Abnormal speech present Psychiatric: Psychiatric: Denies anxiety Endocrine: Endocrine: Denies excessive sweating and Reports palpitations Hematologic/Lymphatic: Hematologic/Lymphatic: Denies easy bleeding Allergic/Immunologic: Allergic/Immunologic: Denies GI upset with certain foods Exam Narrative: Awake alert oriented appears stated age Const: General: comfortable and no acute distress HENMT: Face/Nose/Sinus: Normal nares present Mouth: Yes moist mucous membranes Eyes: Sclera: sclerae normal Neck: Neck: supple and no JVD Carotids: no bruits Chest: Other: No reproducible chest wall pain to palpation Resp: Effort & Inspection: normal respiratory effort Auscultation: clear to auscultation bilaterally Cardio: Rate: regular rate Rhythm: regular rhythm Heart sounds: no murmurs GI: Inspection: non-distended Auscultation: normal bowel sounds Skin: General skin exam: normal color Neuro: Cranial nerves: Yes Normal hearing present Speech: normal speech and No Abnormal speech present Sensory Exam: normal sensation Extrem: General: normal to inspection Psych: Mental Status: mental status grossly normal Affect: normal affect Objective Data Vital Signs Vital Signs: Vital Signs - 24 hr 10/22/24 09:44 10/22/24 10:00 10/22/24 11:30 Temperature 36.9 C Pulse Rate 75 75 5 L Respiratory Rate 18 Blood Pressure 137/57 L Pulse Oximetry 94 Oxygen Delivery 10/22/24 12:00 10/22/24 14:00 10/22/24 16:00 Temperature 37.0 C Pulse Rate 62 74 74 Respiratory Rate 18 Blood Pressure 159/74 H Pulse Oximetry 99 Oxygen Delivery 10/22/24 16:00 10/22/24 18:00 10/22/24 19:36 Temperature 36.5 C Pulse Rate 75 85 72 Respiratory Rate 17 Blood Pressure 157/61 H Pulse Oximetry 100 Oxygen Delivery 10/22/24 20:00 10/22/24 20:05 10/22/24 20:21 Temperature Pulse Rate 73 76 75 Respiratory Rate 17 Blood Pressure Pulse Oximetry 100 Oxygen Delivery Room Air 10/22/24 22:00 10/22/24 23:50 10/22/24 23:53 Temperature 36.6 C Pulse Rate 65 77 62 Respiratory Rate 18 18 Blood Pressure 138/64 Pulse Oximetry 94 95 Oxygen Delivery Room Air 10/23/24 00:00 10/23/24 02:00 10/23/24 03:45 Temperature Pulse Rate 60 66 78 Respiratory Rate 18 Blood Pressure Pulse Oximetry 94 Oxygen Delivery Room Air 10/23/24 04:00 10/23/24 04:00 10/23/24 06:00 Temperature 36.6 C Pulse Rate 64 87 49 L Respiratory Rate 17 Blood Pressure 163/68 H Pulse Oximetry 98 Oxygen Delivery 10/23/24 07:27 Temperature 36.6 C Pulse Rate 65 Respiratory Rate 14 Blood Pressure 152/46 H Pulse Oximetry 97 Oxygen Delivery Intake/Output Intake/Output: Intake & Output 10/20/24 10/21/24 10/22/24 10/23/24 23:59 23:59 23:59 23:59 Intake Total 500 1230 1000 Output Total 1750 Balance 500 -520 1000 Meds/Results Medications: Active Medications Generic Name Dose Route Start Last Admin Trade Name Freq PRN Reason Stop Dose Admin Acetaminophen 650 mg 10/21/24 19:03 Acetaminophen 325 Mg Tablet PO Q4H PRN Mild Pain (1-3) or Fever Hydrocodone Bitart/Acetaminophen 1 tab 10/22/24 20:25 10/23/24 08:24 Hydrocodone/Acetaminophen (*Crx) 7.5-325 Mg Tablet PO 1 tab TID LINA Administration Alprazolam 0.5 mg 10/21/24 23:32 10/22/24 20:21 Alprazolam (*Crx) 0.5 Mg Tablet PO 0.5 mg QHS PRN Administration anxiety Ascorbic Acid 125 mg 10/22/24 09:00 10/23/24 08:24 Ascorbic Acid 125 Mg Tablet PO 125 mg DAILY LINA Administration Aspirin 81 mg 10/22/24 09:00 10/23/24 08:24 Aspirin 81 Mg Enteric Tablet PO 81 mg DAILY LINA Administration Atorvastatin Calcium 40 mg 10/22/24 21:00 10/22/24 20:21 Atorvastatin 40 Mg Tablet PO 40 mg QHS LINA Administration Cyanocobalamin 5,000 mcg 10/22/24 09:00 10/23/24 08:24 Cyanocobalamin 1,000 Mcg Tablet PO 5,000 mcg QAM LINA Administration Dextrose 12.5 gm 10/21/24 19:03 Dextrose 50% 25 Gm/50 Ml Syringe IV PUSH PRN PRN Hypoglycemia Protocol Dextrose 12.5 gm 10/21/24 23:29 Dextrose 50% 25 Gm/50 Ml Syringe IV PUSH PRN PRN Hypoglycemia Protocol Dicyclomine HCl 20 mg 10/22/24 09:00 10/23/24 08:23 Dicyclomine Hcl 10 Mg Capsule PO 20 mg BID LINA Administration Ferrous Sulfate 325 mg 10/22/24 09:00 10/23/24 08:24 Ferrous Sulfate [address] PO 325 mg DAILY LINA Administration Gabapentin 800 mg 10/22/24 00:10 10/23/24 08:24 Gabapentin 400 Mg Capsule PO 800 mg QID LINA Administration Glucagon 1 mg 10/21/24 19:03 Glucagon For Inj 1 Mg Vial IM PRN PRN Hypoglycemia Protocol Glucagon 1 mg 10/21/24 23:29 Glucagon For Inj 1 Mg Vial IM PRN PRN Hypoglycemia Protocol Glucose 15 gm 10/21/24 19:03 Glucose Oral Gel 15 Gm Of Glucse In 37.5 Gm Tube PO PRN PRN Hypoglycemia Protocol Glucose 15 gm 10/21/24 23:29 Glucose Oral Gel 15 Gm Of Glucse In 37.5 Gm Tube PO PRN PRN Hypoglycemia Protocol Dextrose 1,000 mls @ 100 mls/hr 10/21/24 19:03 Dextrose 5% 1,000 Ml IVPB PRN PRN Hypoglycemia Protocol Dextrose 1,000 mls @ 100 mls/hr 10/21/24 23:29 Dextrose 5% 1,000 Ml IVPB PRN PRN Hypoglycemia Protocol Insulin Aspart 3 - 6 units 10/22/24 08:00 10/23/24 08:23 Insulin Aspart (*Bkc) 100 Units/Ml SUB-Q Not Given TIDWM LINA Protocol Insulin Aspart 1 - 3 units 10/22/24 21:00 10/22/24 21:49 Insulin Aspart (*Bkc) 100 Units/Ml SUB-Q Not Given HS LINA Protocol Loratadine 10 mg 10/21/24 23:38 Loratadine 10 Mg Tablet PO DAILY PRN allergy symptoms Metoprolol Tartrate 50 mg 10/22/24 21:00 10/22/24 20:21 Metoprolol Tartrate 50 Mg Tab PO 50 mg Q12HR LINA Administration Multivitamins Therapeutic 1 tablet 10/22/24 09:00 10/23/24 08:24 Multivitamins Therapeutic Tab (*Bkc) PO 1 tablet DAILY LINA Administration Nicotine 1 patch 10/21/24 23:30 10/22/24 09:45 Nicotine (*Pbkc) 21 Mg Patch TRANSDERM 1 patch DAILY LINA Administration Ondansetron HCl 4 mg 10/21/24 19:03 Ondansetron Inj 4 Mg/2 Ml Vial IV PUSH Q4H PRN Nausea Pantoprazole Sodium 40 mg 10/22/24 09:00 10/23/24 08:24 Pantoprazole 40 Mg Tablet PO 40 mg QAM LINA Administration Perflutren Lipid Microsphere 0 ml 10/21/24 23:29 Perflutren Lipid Microspheres 1.5 Ml Vial Diluted To 10 Ml Total Volume IV PUSH 10/24/24 23:29 ONCE PRN adequate visualization Protocol Rivaroxaban 15 mg 10/22/24 17:00 10/22/24 16:47 Rivaroxaban 15 Mg Tablet PO 15 mg DAILY@1700 LINA Administration Sertraline HCl 100 mg 10/22/24 09:00 10/23/24 08:24 Sertraline Hcl 50 Mg Tablet PO 100 mg DAILY LINA Administration Radiology Results: ITS Impressions Head CT 10/21/24 15:32 IMPRESSION: 1. No acute intracranial process. 2. Age-related changes including mild diffuse volume loss and mild to moderate scattered nonspecific white matter hypoattenuation consistent with chronic small vessel ischemic disease. 2. Bubbly mucus in the left sphenoid sinus. Correlate clinically for acute sinusitis. Chest X-Ray 10/21/24 15:39 IMPRESSION: No acute cardiopulmonary pathology. Renal Ultrasound 10/22/24 11:58 IMPRESSION: No hydronephrosis or renal calculi. Findings suggesting medical renal disease. Venous Doppler Study 10/22/24 19:28 IMPRESSION: Negative bilateral lower extremity venous US. No deep vein thrombosis. Labs Labs: Laboratory Results - last 24 hr 10/22/24 10/22/24 10/22/24 11:32 16:07 17:41 WBC RBC Hgb Hct MCV MCH MCHC RDW Plt Count MPV Immature Gran % (Auto) Neut % (Auto) Lymph % (Auto) [place] % (Auto) Eos % (Auto) Baso % (Auto) Lymph # (Auto) [place] # (Auto) Eos # (Auto) Baso # (Auto) Abs Immat Gran (auto) Absolute Neuts (auto) Absolute Nucleated RBC Nucleated RBC % Sodium Potassium Chloride Carbon Dioxide Anion Gap BUN Creatinine Estim Creat Clear Calc Estimated GFR Glucose POC Capillary Glucose 149 H 111 H Calcium Phosphorus Magnesium Iron TIBC % Saturation Ferritin Albumin Vitamin B12 Folate Urine Color Yellow Urine Appearance Clear Urine pH 7.5 Ur Specific [place] 1.004 Urine Protein 1+ H Urine Glucose (UA) Negative Urine Ketones Negative Ur Blood (Man) Negative Urine Nitrate Negative Urine Bilirubin Negative Urine Urobilinogen 0.2 Leukocyte Esterase Rfl Negative Urine RBC 0-2 Urine WBC 0-5 Ur Squamous Epith Cells None seen Urine Bacteria None seen Urine Casts 0-2 Complement C3 Complement C4 10/22/24 10/23/24 10/23/24 20:53 04:11 07:10 WBC 7.5 RBC 4.23 Hgb 12.2 Hct 38.4 MCV 90.8 MCH 28.8 MCHC 31.8 L RDW 13.6 Plt Count 326 MPV 9.4 Immature Gran % (Auto) 0.3 Neut % (Auto) 50.9 Lymph % (Auto) 36.9 [place] % (Auto) 6.7 Eos % (Auto) 4.3 Baso % (Auto) 0.9 Lymph # (Auto) 2.75 [place] # (Auto) 0.5 Eos # (Auto) 0.3 Baso # (Auto) 0.1 Abs Immat Gran (auto) 0.02 Absolute Neuts (auto) 3.8 Absolute Nucleated RBC 0.000 Nucleated RBC % 0.0 Sodium 138 Potassium 4.3 Chloride 102 Carbon Dioxide 29 Anion Gap 7 BUN 23 H Creatinine 1.65 H Estim Creat Clear Calc 27 Estimated GFR 31 L Glucose 141 H POC Capillary Glucose 160 H 139 H Calcium 9.5 Phosphorus 4.0 Magnesium 1.8 Iron 67 TIBC 313 % Saturation 21 Ferritin 72.90 Albumin 4.2 Vitamin B12 > 1000.0 H Folate > 20.0 H Urine Color Urine Appearance Urine pH Ur Specific [place] Urine Protein Urine Glucose (UA) Urine Ketones Ur Blood (Man) Urine Nitrate Urine Bilirubin Urine Urobilinogen Leukocyte Esterase Rfl Urine RBC Urine WBC Ur Squamous Epith Cells Urine Bacteria Urine Casts Complement C3 122 Complement C4 36.0 Quality VTE Prophylaxis VTE prophylaxis: pharmacologic ordered
[2024-10-23] MEDS: NICOTINE (*PBKC) 21 MG PATCH 1 PATCH TRANSDERM (10:27)
[2024-10-23] MEDS: METOPROLOL TARTRATE 50 MG TAB PO (10:27)
[2024-10-23 11:07] LABS: Glucose Point of Care 151 mg/dl (65-105)
--- NOTE | 2024-10-23 11:13 | PC.NURSE ---
On 10/23/24, the student, [Lynda Ferris], provided care and completed [facility] documentation on this patient. I have reviewed the student's documentation and agree with the findings.
--- NOTE | 2024-10-23 12:30 | PM.DS ---
DS: Admitting Diagnosis Discharge Date 10/23/24 Admitting Diagnosis Chest pain DS: Discharge Diagnosis Discharge Diagnosis (1) Atrial flutter: Code(s): I48.92 - Unspecified atrial flutter Status: Acute (2) Non-ST elevated myocardial infarction: Code(s): I21.4 - Non-ST elevation (NSTEMI) myocardial infarction Status: Acute (3) Acute kidney injury superimposed on CKD: Code(s): N17.9 - Acute kidney failure, unspecified; N18.9 - Chronic kidney disease, unspecified Status: Acute (4) Coronary artery disease: Code(s): I25.10 - Atherosclerotic heart disease of [place] coronary artery without angina pectoris Status: Acute (5) Hyperkalemia: Code(s): E87.5 - Hyperkalemia Status: Acute (6) Chronic obstructive pulmonary disease: Code(s): J44.9 - Chronic obstructive pulmonary disease, unspecified Status: Acute (7) Hypertension: Code(s): I10 - Essential (primary) hypertension Status: Acute (8) Type 2 diabetes mellitus: Code(s): E11.9 - Type 2 diabetes mellitus without complications Status: Acute (9) Anemia: Code(s): D64.9 - Anemia, unspecified Status: Acute DS: Summary Hospital Course Reason for hospitalization: 64yo female smoker with history of CAD s/p CABG x2v, HTN, dyslipidemia, COPD, ANDREW, pancreatitis, DM type 2, depression, and anxiety who presented to the emergency department for evaluation of chest pain and a fast heart rate. Please see H&P for details. Hospital Course: Patient presented with chest pain and tachycardia and found to have AFlutter. She states she has had these symptoms for years and did see a winery cellar hand but did not return for followup. She has not been on anticoagulation in the past. EKG showing aflutter with rate of [address]-T wave changes in the anterolateral and high lateral leads. She was given a dose of IV metoprolol and a dose of IV diltiazem and she converted back into a normal sinus rhythm. She is on metoprolol tartrate 25 mg b.i.d. at home and her dose was advanced. [id number] is 6 and anticoagulation is indicated. Started on enoxaparin therapeutic dose and then changed to Xarelto. TSH is normal. D-dimer is positive at 0.8. Echo showing EF 60-65% with grade I diastolic dysfunction. LA mildly enlarged and mild TR. Mild pulm HTN. Lower extremity venous Dopplers negative for DVT. Troponin peaked at 1.5. LDL 65. Cardiology consulted. [place] to be demand ischemia from the AFlutter with RVR. She did have chest pain with ST-T wave changes and stress test recommended. She went for Lexiscan stress test showing normal myocardial perfusion at rest and during stress with EF 69%. She also had acute kidney injury superimposed on CKD. Baseline Cr in August was 1.15. Cr was 1.7 and up to 1.9. Probably related to Lasix, Ibuprofen, and from the AFlutter/RVR. No urine eos noted. Prot/Cr ration 3.4grams. Possibly nephrotic syndrome but would repeat this once she is well. Cruz 66. FENa 0.9%. Renal US showing no hydronephrosis or renal calculi but showing medical renal disease. Serum total protein and albumin normal. UA showing only 1+ protein o/w negative. We held her Lasix. We decreased her Gabapentin dose. She received IV fluids and Cr did improve to 1.65. Will need to see data manager after discharge. She has a hx of coronary artery disease. We continued ASA, Lipitor and metoprolol. Potassium 5.4 on admission. Related to her DARIEL/CKD and medications. Treated appropriately and this has normalized. Patient has a normal baseline hemoglobin at 12. Hemoglobin 12.1 on admission but did drop to 10.5. Probably related to IV fluids. Iron studies and B12/folate were normal. Repeat Hgb normal. She did have a headache on admission prompting a CT head which showed no acute findings. She did have bubbly mucus in the left sphenoid sinus possibly acute sinusitis but no further symptoms. She has DM and her A1c 7.7%. Her metformin and glipizide held due to her DARIEL. Monitor glucose at home and resume meds when/if okay with PCP. She was educated about the benefits of smoking cessation. She overall did well and was able to be discharged home on 10/23/24. Status at Discharge Cognitive/behavioral status at discharge: stable Time Spent with Patient Time attestation: Total time spent providing and/or coordinating discharge services: 37 minutes Time spent: Greater than 30 minutes Specific discharge activities: discussed about the risks/benefits of anticoagulation with patient and dtr Exam Narrative: AF 98.1 134/62 57 16 100% ra Gen - NARD Chest - CTA bilaterally, nml RR CV - RRR S1/S2. Tele showing no significant dysrhythmias Abd - Soft, NT/ND, Positive BS Ext - No pedal edema Psych - Nml mood and affect Skin - Warm and dry DS: Data Data Completed and Pending Labs on day of discharge: Labs from last 24 hours 10/23/24 10/23/24 10/23/24 11:02 07:10 04:11 WBC 7.5 RBC 4.23 Hgb 12.2 Hct 38.4 MCV 90.8 MCH 28.8 MCHC 31.8 L RDW 13.6 Plt Count 326 MPV 9.4 Immature Gran % (Auto) 0.3 Neut % (Auto) 50.9 Lymph % (Auto) 36.9 [place] % (Auto) 6.7 Eos % (Auto) 4.3 Baso % (Auto) 0.9 Lymph # (Auto) 2.75 [place] # (Auto) 0.5 Eos # (Auto) 0.3 Baso # (Auto) 0.1 Abs Immat Gran (auto) 0.02 Absolute Neuts (auto) 3.8 Absolute Nucleated RBC 0.000 Nucleated RBC % 0.0 Sodium 138 Potassium 4.3 Chloride 102 Carbon Dioxide 29 Anion Gap 7 BUN 23 H Creatinine 1.65 H Estim Creat Clear Calc 27 Estimated GFR 31 L Glucose 141 H POC Capillary Glucose 151 H 139 H Calcium 9.5 Phosphorus 4.0 Magnesium 1.8 Iron 67 TIBC 313 % Saturation 21 Ferritin 72.90 Albumin 4.2 Vitamin B12 > 1000.0 H Folate > 20.0 H Urine Color Urine Appearance Urine pH Ur Specific [place] Urine Protein Urine Glucose (UA) Urine Ketones Ur Blood (Man) Urine Nitrate Urine Bilirubin Urine Urobilinogen Leukocyte Esterase Rfl Urine RBC Urine WBC Ur Squamous Epith Cells Urine Bacteria Urine Casts NARGIS Screen Pending Complement C3 122 Complement C4 36.0 Tot Complement (CH50) Pending 10/22/24 10/22/24 10/22/24 20:53 17:41 16:07 WBC RBC Hgb Hct MCV MCH MCHC RDW Plt Count MPV Immature Gran % (Auto) Neut % (Auto) Lymph % (Auto) [place] % (Auto) Eos % (Auto) Baso % (Auto) Lymph # (Auto) [place] # (Auto) Eos # (Auto) Baso # (Auto) Abs Immat Gran (auto) Absolute Neuts (auto) Absolute Nucleated RBC Nucleated RBC % Sodium Potassium Chloride Carbon Dioxide Anion Gap BUN Creatinine Estim Creat Clear Calc Estimated GFR Glucose POC Capillary Glucose 160 H 111 H Calcium Phosphorus Magnesium Iron TIBC % Saturation Ferritin Albumin Vitamin B12 Folate Urine Color Yellow Urine Appearance Clear Urine pH 7.5 Ur Specific [place] 1.004 Urine Protein 1+ H Urine Glucose (UA) Negative Urine Ketones Negative Ur Blood (Man) Negative Urine Nitrate Negative Urine Bilirubin Negative Urine Urobilinogen 0.2 Leukocyte Esterase Rfl Negative Urine RBC 0-2 Urine WBC 0-5 Ur Squamous Epith Cells None seen Urine Bacteria None seen Urine Casts 0-2 NARGIS Screen Complement C3 Complement C4 Tot Complement (CH50) Discharge Plan Discharge Attending physician on discharge: Med Aguilar Consulting providers: Pauline Walter Discharging Clinician: Med Aguilar Anticipated Discharge Date/Time: 10/23/24 12:43 Patient Disposition: Home Activity: as tolerated Diet: heart healthy Discharge Instructions: Stop using all products that contain tobacco or nicotine. You are taking both a narcotic and a benzodiazepine. This puts you at risk for falls. Please talk with your primary provider to see if this is still appropriate. Please check glucose before meals and before bed. Record and bring into your doctor for review. Check blood pressure 1 to 2 times a day. Record and bring into your doctor for review. Call your doctor if your blood pressure is greater than 180/110. Take precautions to avoid falls. Rise slowly from a lying or sitting position. Pause before standing or walking. Check daily morning weights after voiding. Call the doctor if the patient gains more than 3 lb in 2 days or 5 lb in 1 week. Call your doctor if you develop ankle swelling. Contact your doctor or call 911 and come to the Emergency Room if you have any type of trauma, lightheadedness with standing or other worrisome symptoms. Avoid NSAIDs (ibuprofen, naproxen, Aleve). Tylenol is safe to take. Follow-up with your primary care provider in 1-2 weeks. Please call for appointment. Follow-up with Cardiology in 2-4 weeks. Please call for an appointment. Follow-up with Microscopist (kidney doctor) in 2-3 weeks. Please call for an appointment. Thank you for using [facility] for your health care needs. Patient Instructions: Antibiotic Form, Enoxaparin (By injection), Heart Attack (GEN), Heart Failure (GEN), How to Stop Smoking (DC), COPD (Chronic Obstructive Pulmonary Disease) (GEN) Patient Language: Thai Stand Alone Forms: General Discharge Information Follow-up/Referrals: Padmini Lewis MD [Physician] - Call for Appointment Pauline Walter DO [Physician] - Call for Appointment Forrest Maohney MD [Primary Care Provider] - Call for Appointment Discharge Medications: New metoprolol tartrate 50 mg Tablet 50 mg PO Q12HR Qty: 60 1RF Xarelto 15 mg Tablet 15 mg PO DAILY@1700 Qty: 30 1RF atorvastatin 40 mg Tablet 40 mg PO QHS Qty: 30 1RF Continued dicyclomine 20 mg tablet 20 mg PO BID pantoprazole 40 mg tablet,delayed release (DR/EC) 40 mg PO QAM sertraline 100 mg tablet 100 mg PO DAILY alprazolam [Xanax] 0.5 mg tablet 0.5 mg PO QHS PRN (Reason: anxiety) cetirizine [Zyrtec] 10 mg tablet 10 mg PO DAILY PRN (Reason: allergy symptoms) hydrocodone-acetaminophen 7.5-750 mg tablet 1 tablet PO BID aspirin [Adult Low Dose Aspirin] 81 mg tablet,delayed release (DR/EC) 81 mg PO DAILY mecobalamin (vitamin B12) 5,000 mcg tablet,chewable 5,000 mcg PO DAILY cranberry extract 200 mg capsule 36,000 mg PO DAILY Rx Instructions: administer with a meal ascorbic acid (vitamin C) 250 mg tablet 125 mg PO DAILY multivitamin Tablet 1 tablet PO DAILY ferrous sulfate 325 mg (65 mg iron) tablet 325 mg PO DAILY Changed gabapentin 800 mg tablet 800 mg PO TID Qty: 15 0RF Held metformin 1,000 mg tablet extended release 24 hr 1,000 mg PO BID Hold Instructions: HOLD - Resume when okay with your doctor glipizide 5 mg tablet 5 mg PO BID Hold Instructions: HOLD - Resume when okay with your doctor furosemide [Lasix] 40 mg tablet 40 mg PO QAM Hold Instructions: HOLD - Resume when okay with your doctor potassium chloride 20 mEq tablet extended release 20 meq PO DAILY Hold Instructions: HOLD - Resume when okay with your doctor Discontinued atorvastatin 20 mg tablet 20 mg PO QHS metoprolol tartrate 25 mg tablet 25 mg PO BID ibuprofen 800 mg tablet 800 mg PO TID PRN (Reason: pain) Other Ambulatory Orders: Renal Function Panel (Routine) Timeframe: 1 Week Location: Determined by Patient Ordered By: Med Aguilar Date of admission: 10/22/24 09:20 Primary Care Provider: Forrest Mahoney Admitting Provider: Vinay Varghese Attending physician on admission: Vinay Varghese Condition: Stable Hospitalist MIPS Heart Failure (Exclusion) Patient has history of Heart Transplant or Left Ventricular Assistive Device?: No IF YES, STOP HERE Heart Failure (Qualifier) Patient has current or prior documentation of LVEF less than or equal to 40%, or mod/servere depressed LVSF?: No IF NO, STOP HERE
[2024-10-27 12:29] LABS: Anti Nuclear Antibody Pattern Nuclear, Speckled; Anti Nuclear Antibody Titer 1:40 titer
[2024-10-27 16:13] LABS: Complement Total CH50 >60 U/mL (31-60)
--- NOTE | 2024-10-28 08:23 | PC.NURSE ---
NARGIS is positive at 1:40 with nuclear speckled. CH50 elevated at >60. Dr. Mahoney able to see in his clinic.
== END 2024-10-23 14:22 | disposition home or self-care (01) | DRG 309 ==
LOC: ANHED 19:01 → ANHIMU 19:37
PROVIDERS: Emergency Medicine; Physician Assistant; Admitting Provider Internal Medicine; Emergency Provider Student in an Organized Health Care Education/Training Program; PCP Family Medicine; Visit Provider Internal Medicine
DX: I48.92 Unspecified atrial flutter (principal); I13.0 Hypertensive heart and chronic kidney disease with heart failure and stage 1 through stage 4 chronic kidney disease, or unspecified chronic kidney disease; I24.89 Other forms of acute ischemic heart disease; N17.9 Acute kidney failure, unspecified; I47.19 Other supraventricular tachycardia; I48.20 Chronic atrial fibrillation, unspecified; N18.30 Chronic kidney disease, stage 3 unspecified; I50.9 Heart failure, unspecified; I25.10 Atherosclerotic heart disease of native coronary artery without angina pectoris; E87.5 Hyperkalemia; E11.22 Type 2 diabetes mellitus with diabetic chronic kidney disease; E78.5 Hyperlipidemia, unspecified; J44.9 Chronic obstructive pulmonary disease, unspecified; K58.9 Irritable bowel syndrome, unspecified; M19.90 Unspecified osteoarthritis, unspecified site; F41.9 Anxiety disorder, unspecified; F32.A Depression, unspecified; Z20.822 Contact with and (suspected) exposure to COVID-19; Z79.82 Long term (current) use of aspirin; Z85.3 Personal history of malignant neoplasm of breast; Z95.1 Presence of aortocoronary bypass graft
CPT/HCPCS: 36415; 70450; 71046; 76775; 78452; 80048; 80053; 80061; 80069; 81001; 82550; 82570; 82607; 82728; 82746; 82948; 83036; 83540; 83550; 83690; 83735; 83880; 84133; 84156; 84300; 84443; 84484; 85025; 85027; 85380; 85610; 85730; 85999; 86038; 86039; 86140; 86160; 86162; 87637; 93005; 93017; 93306; 93970; 96372; 96374; 96375; 99285; A9270; A9502; G0378; J0612; J0780; J1650; J1815; J1885; J2785; J7030; J7040

== ENCOUNTER 2024-10-25 12:14 | Outpatient (CLI) | payer MEDICARE, SELFPAY ==
--- OUTSIDE RECORDS SUMMARY | 2024-10-25 12:17 | XMS_ITS | Continuity of Care Document ---
Author Organization [facility] Address [address] [place] [address] Phone Care Team Providers Care Edge Sander Name Role Phone Alexey Millan MD Unavailable [...] Copied on Encounter OFFICE/OUTPA TIENT VISIT, EST [facility], [address], [place], [place], [id number] , [place] tel:[phone] Tej Gorman f/u (chief complaint) Freeform HPI (chief complaint) Palpitatio ns (chief complaint) Dyspnea (chief complaint) COPDShortness of breathNicotine dependence, cigarettes, uncomplicatedAtherosc lerotic heart disease of [place] coronary artery with unspecified angina pectorisPalpitationsT ype II diabetes without complicationGERD w/o esophagitisHypertensi onStroke 4 Monty Blackburn. [address] [place] [address], [id number] , [place]. tel:[phone] Referring Provider: Tehsa Fernandez SPORTS EQUIPMENT SUPERVISOR, [address] [place], [address]. tel:[phone] OFFICE/OUTPA TIENT VISIT, EST [facility], [address] [place] [address], [id number] , [place] tel:[phone] [facility] Freeform HPI (chief complaint) COPDShortness of breathNicotine dependence, cigarettes, uncomplicatedAtherosc lerotic heart disease of [place] coronary artery with unspecified angina pectorisPalpitations 3 Monty Blackburn. [address] [place] [address], [id number] , [place]. tel:[phone] Referring Provider: Alexey Reyna, [address] [place] [address], [address] . tel:[phone] [facility], [address] [place] [address], [id number] , [place] tel:[phone] [facility] No Information 2 Monty Blackburn. [address] [place] [address], [id number] , [place]. [phone] Referring Provider: Alexey Reyna, [address] [place] [address], [address] . tel:[phone] OFFICE/OUTPA TIENT VISIT, EST [facility], [address] [place] [address], [id number] , [place] [phone] [facility] Freeform HPI (chief complaint) COPDAtherosclerotic heart disease of [place] coronary artery with unspecified angina pectorisChest painShortness of breathPalpitationsNic otine dependence, cigarettes, uncomplicated 2 Claude Rosario. [address] [place] [address] [place], [place], [id number] , [place]. [phone] Referring Provider: Marlene Buchanan, [address] [place] [address] , [place], [address] . tel:[phone] [facility], [address] [place] [address], [id number] , tel:[phone] [facility] No Information 2 Monty Blackburn. [address] [place] [address], [id number] , . tel:[phone] Referring Provider: Alexey Reyna, [address] [place] [address], [address] . tel:[phone] OFFICE/OUTPA TIENT VISIT, NEW [facility], [address] [place] [address], [address] [place] [address] , [phone] [facility] Freeform HPI (chief complaint) Freeform HPI (chief complaint) Chest Pain (chief complaint) Dyspnea (chief complaint) Palpitatio ns (chief complaint) COPDAtherosclerotic heart disease of [place] coronary artery with unspecified angina pectorisChest painShortness of breathPalpitationsNic otine dependence, cigarettes, uncomplicated 2 Monty Blackburn. [address] [place] [address], [id number] , . tel:[phone] Referring Provider: Alexey Reyna, [address] [place] [address], [address] . tel:[phone] Family History Family Member Type Diagnosis Age At Onset Problem (finding) Myocardial infarction Problem (finding) Family history of Diabe malina mellitus Problem (finding) Family history of hyper tension Problem (finding) Family history of strok e Payers Payer name Insurance type Covered alliance party ID Authoriza titriston(s) [facility] [id number] Social History Type Description Quantity Date Captured [...] uncomplicated assessment Atherosclerotic hear t disease of de[place] coronary artery with unspecified angina pectoris assessment Palpitations assessment Type II diabetes without complic ation assessment GERD w/o esophagitis assessment Hypertension assessment Stroke Patient Care Teams Name Effective Dates (start - stop) Status Members No Information
--- OUTSIDE RECORDS SUMMARY | 2024-10-25 12:17 | XMS_ITS | Continuity of Care Document ---
Author Organization [facility] Address [address] [place] [address] Phone Care Team Providers Care Disaster Recovery Coordinator Name Role Phone ALANNAH LEBLANC MD Unavailable [...] IENT VISIT, EST [facility], [address] [place] [address], [address] [place] [address], tel:[phone] [facility] shoulder (chief complaint) Pain in left shoulder 0 DEANA JAFFE. [address] [place] [address], [id number], [place]. tel:[phone] Referring Provider: ALANNAH Buchanan, [address] [place] [address], [address]. tel:[phone] OFFICE/OUTPAT IENT VISIT, [facility], [address] [place] [address], [id number], tel:[phone] [facility] shoulder (chief complaint) Incomplete rotatr-cuff tear/ruptr of r shoulder, not trauma [address] MENDIETA. [address] [place] [address], [id number], [place]. tel:[phone] Referring Provider: ANAM YUN MD, [address] [place] [address], [id number]. tel:[phone] Family History Family Member Type Diagnosis Age At Onset No Information Payers Payer name Insurance type Covered republican ID Authoriza tion(s) MEDICARE MB [id number] Social History Type Description Quantity Date Captured [...]
[2024-10-25 12:45] LABS: Albumin Level 3.8 g/dL (3.5-5.1); Anion Gap 5 mmol/L (4-12); Blood Urea Nitrogen 16 mg/dL (7-17); Calcium 9.2 mg/dL (8.4-10.2); Carbon Dioxide 29 mmol/L (22-30); Chloride 105 mmol/L (98-107); Estimated Glomerular Filt Rate 36; Glucose 137 mg/dL (65-110); Phosphorus 3.7 mg/dL (2.5-4.5); Sodium 139 mmol/L (137-145)
== END 2024-10-25 12:15 | disposition home or self-care (01) ==
PROVIDERS: PCP Family Medicine; Referring Provider Family Medicine; Visit Provider Internal Medicine
DX: N17.9 Acute kidney failure, unspecified (principal); N18.9 Chronic kidney disease, unspecified
CPT/HCPCS: 36415; 80069

== ENCOUNTER 2024-12-03 10:50 | Outpatient (CLI) | payer MEDICARE, SELFPAY ==
--- OUTSIDE RECORDS SUMMARY | 2024-12-03 11:25 | XMS_ITS | Continuity of Care Document ---
Author Organization [facility] Address [address] [place] [address] Phone Care Team Providers Care Hotel Office Manager Name Role Phone Alexey Millan MD Unavailable [...] Copied on Encounter OFFICE/OUTPA TIENT VISIT, EST [facility], [address], [place], [place], [id number] , [place] tel:[phone] Tej Gorman f/u (chief complaint) Freeform HPI (chief complaint) Palpitatio ns (chief complaint) Dyspnea (chief complaint) COPDShortness of breathNicotine dependence, cigarettes, uncomplicatedAtherosc lerotic heart disease of [place] coronary artery with unspecified angina pectorisPalpitationsT ype II diabetes without complicationGERD w/o esophagitisHypertensi onStroke 4 Monty Blackburn. [address] [place] [address], [id number] , [place]. tel:[phone] Referring Provider: Tesha Fernandez SUPERINTENDENT METERS, [address] [place], [address]. tel:[phone] OFFICE/OUTPA TIENT VISIT, EST [facility], [address] [place] [address], [id number] , [place] tel:[phone] [facility] Freeform HPI (chief complaint) COPDShortness of breathNicotine dependence, cigarettes, uncomplicatedAtherosc lerotic heart disease of [place] coronary artery with unspecified angina pectorisPalpitations 3 Monty Blackburn. [address] [place] [address], [id number] , [place]. tel:[phone] Referring Provider: Alexey Reyna, [address] [place] [address], [address] . tel:[phone] [facility], [address] [place] [address], [id number] , [place] tel:[phone] [facility] No Information 2 Monty Blackburn. [address] [place] [address], [id number] , [place]. [phone] Referring Provider: Alexey Reyna, [address] [place] [address], [address] . tel:[phone] OFFICE/OUTPA TIENT VISIT, EST [facility], [address] [place] [address], [id number] , [place] tel:[phone] [facility] (chief complaint) COPDAtherosclerotic heart disease of [place] coronary artery with unspecified angina pectorisChest painShortness of breathPalpitationsNic otine dependence, cigarettes, uncomplicated 2 Claude Rosario. [address] [place] [address] [place], [place], [id number] , [place]. [phone] Referring Provider: Marlene Buchanan, [address] [place] [address] [place], [address] . tel:[phone] [facility], [address] [place] [address], [id number] , tel:[phone] [facility] No Information 2 Monty Blackburn. [address] [place] [address], [id number] , . tel:[phone] Referring Provider: Alexey Reyna, [address] [place] [address], [address] . tel:[phone] OFFICE/OUTPA TIENT VISIT, NEW [facility], [address] [place] [address], [id number] , tel:[phone] [facility] Freeform HPI (chief complaint) Freeform HPI (chief complaint) Chest Pain (chief complaint) Dyspnea (chief complaint) Palpitatio ns (chief complaint) COPDAtherosclerotic heart disease of [place] coronary artery with unspecified angina pectorisChest painShortness of breathPalpitationsNic otine dependence, cigarettes, uncomplicated 2 Monty Blackburn. [address] [place] [address], [id number] , . tel:[phone] Referring Provider: Alexey Reyna, [address] [place] [address], [id number] . tel:[phone] Family History Family Member Type Diagnosis Age At Onset Problem (finding) Myocardial infarction Problem (finding) Family history of Diabe malina mellitus Problem (finding) Family history of hyper tension Problem (finding) Family history of strok e Payers Payer name Insurance type Covered libertarian ID Authoriza ti(s) [facility] [id number] Social History Type Description Quantity Date Captured [...] uncomplicated assessment Atherosclerotic hear t disease of [place] coronary artery with unspecified angina pectoris assessment Palpitations assessment Type II diabetes without complic ation assessment GERD w/o esophagitis assessment Hypertension assessment Stroke Patient Care Teams Name Effective Dates (start - stop) Status Members No Information
--- OUTSIDE RECORDS SUMMARY | 2024-12-03 11:25 | XMS_ITS | Continuity of Care Document ---
Author Organization [facility] Address [address] [place] [address] Phone Care Team Providers Care Lighting Director Name Role Phone ALANNAH LEBLANC MD [...] IENT VISIT, EST [facility], [address] [place] [address], [address] [place] [address], tel:[phone] [facility] shoulder (chief complaint) Pain in left shoulder 0 DEANA JAFFE. [address] [place] [address], [id number], [place]. tel:[phone] Referring Provider: ALANNAH Buchanan, [address] [place] [address], [address]. tel:[phone] OFFICE/OUTPAT IENT VISIT, [facility], [address] [place] [address], [id number], tel:[phone] [facility] shoulder (chief complaint) Incomplete rotatr-cuff tear/ruptr of r shoulder, not trauma [address] MENDIETA[address] [place] [address], [id number], [place]. tel:[phone] Referring Provider: ANAM YUN MD, [address] [place] [address], [id number]. tel:[phone] Family History Family Member Type Diagnosis Age At Onset No Information Payers Payer name Insurance type Covered constitution party ID Authoriza tion(s) MEDICARE MB [id number] Social History Type Description Quantity Date Captured [...]
[2024-12-03 12:17] LABS: Albumin Level 3.6 g/dL (3.5-5.1); Anion Gap 4 mmol/L (4-12); Blood Urea Nitrogen 19 mg/dL (7-17); Calcium 9.2 mg/dL (8.4-10.2); Carbon Dioxide 29 mmol/L (22-30); Chloride 104 mmol/L (98-107); Estimated Glomerular Filt Rate 36; Glucose 178 mg/dL (65-110); Potassium 4.7 mmol/L (3.4-5.0); Sodium 137 mmol/L (137-145)
== END 2024-12-03 10:51 | disposition home or self-care (01) ==
PROVIDERS: PCP Family Medicine; Visit Provider Internal Medicine Nephrology
DX: I12.9 Hypertensive chronic kidney disease with stage 1 through stage 4 chronic kidney disease, or unspecified chronic kidney disease (principal); E11.22 Type 2 diabetes mellitus with diabetic chronic kidney disease; N18.32 Chronic kidney disease, stage 3b
CPT/HCPCS: 36415; 80069

== ENCOUNTER 2025-02-16 17:48 | Emergency (ER) | payer MEDICARE, SELFPAY ==
--- NOTE | ~2025-02-16 | XR_ITS ---
CHEST RADIOGRAPH CLINICAL HISTORY: cp . COMPARISON: 10/21/2024 TECHNIQUE: Single portable view of the chest. FINDINGS Sternal wires and mediastinal clips are identified, the wires are midline and intact. The remainder of the cardiomediastinal silhouette is otherwise unremarkable. The lungs are clear. IMPRESSION: No focal infiltrate or effusion. Reviewed, dictated and finalized at location A.
--- NOTE | 2025-02-16 17:49 | ECG_ITS ---
Test Date: 2025-02-16 18:06:52 Measurements Intervals [place] Rate: 169 P: 0 [place]: 0 QRS: 27 QRSD: 79 T: 115 QT: 263 QTc: 441 Interpretive Statements SUPRAVENTRICULAR TACHYCARDIA ST-T WAVE ABNORMALITY IN HIGH LATERAL LEADS- CONSIDER ISCHEMIA OR RATE RELATED ABNORMAL ECG Compared to ECG 10/21/2024 17:23:56 Possible ischemia now present Sinus rhythm no longer present Electronically Signed On 02-16-2025 19:47:59 CDT by Barry Cox D.O.
--- OUTSIDE RECORDS SUMMARY | 2025-02-16 17:50 | XMS_ITS | Continuity of Care Document ---
Author Organization [facility] Address [address] [place] [address] Phone Care Team Providers Care Pharmaceutical Botanist Name Role Phone Alexey Millan MD Unavailable [...] Copied on Encounter OFFICE/OUTPA TIENT VISIT, EST [facility], [address], [place], [place], [id number] , [place] tel:[phone] Tej Gorman f/u (chief complaint) Freeform HPI (chief complaint) Palpitatio ns (chief complaint) Dyspnea (chief complaint) COPDShortness of breathNicotine dependence, cigarettes, uncomplicatedAtherosc lerotic heart disease of [place] coronary artery with unspecified angina pectorisPalpitationsT ype II diabetes without complicationGERD w/o esophagitisHypertensi onStroke 4 Monty Blackburn. [address] [place] [address], [id number] , [place]. tel:[phone] Referring Provider: Tesha Fernandez FORMING MILL OPERATOR, [address] [place], [address]. tel:[phone] OFFICE/OUTPA TIENT VISIT, EST [facility], [address] [place] [address], [id number] , [place] tel:[phone] [facility] Freeform HPI (chief complaint) COPDShortness of breathNicotine dependence, cigarettes, uncomplicatedAtherosc lerotic heart disease of [place] coronary artery with unspecified angina pectorisPalpitations 3 Monty Blackburn. [address] [place] [address], [id number] , [place]. tel:[phone] Referring Provider: Alexey Reyna, [address] [place] [address], [address] . tel:[phone] [facility], [address] [place] [address], [id number] , [place] tel:[phone] [facility] No Information 2 Monty Blackburn. [address] [place] [address], [id number] , [place]. [phone] Referring Provider: Alexey Reyna, [address] [place] [address], [address] . tel:[phone] OFFICE/OUTPA TIENT VISIT, EST [facility], [address] [place] [address], [id number] , [place] tel:[phone] [facility] HPI (chief complaint) COPDAtherosclerotic heart disease of [place] coronary artery with unspecified angina pectorisChest painShortness of breathPalpitationsNic otine dependence, cigarettes, uncomplicated 2 Claude Rosario. [address] [place] [address] [place], [place], [id number] , [place]. [phone] Referring Provider: Marlene Buchanan, [address] [place] [address] [place], [address] . tel:[phone] [facility], [address] [place] [address], [id number] , tel:[phone] [facility] No Information 2 Monty Blackburn. [address] [place] [address], [id number] , . tel:[phone] Referring Provider: Alexey Reyna, [address] [place] [address], [address] . tel:[phone] OFFICE/OUTPA TIENT VISIT, NEW [facility], [address] [place] [address], [id number] , tel:[phone] [facility] Freeform HPI (chief complaint) Freeform HPI (chief complaint) Chest Pain (chief complaint) Dyspnea (chief complaint) Palpitatio ns (chief complaint) COPDAtherosclerotic heart disease of [place] coronary artery with unspecified angina pectorisChest painShortness of breathPalpitationsNic otine dependence, cigarettes, uncomplicated 2 Monty Blackburn. [address] [place] [address], [id number] , . tel:[phone] Referring Provider: Alexey Reyna, [address] [place] [address], [address] . tel:[phone] Family History Family Member Type Diagnosis Age At Onset Problem (finding) Myocardial infarction Problem (finding) Family history of Diabe malina mellitus Problem (finding) Family history of hyper tension Problem (finding) Family history of strok e Payers Payer name Insurance type Covered green party ID Authoriza ti(s) [facility] [id number] Social History Type Description Quantity Date Captured [...] uncomplicated assessment Atherosclerotic hear t disease of [place] coronary artery with unspecified angina pectoris assessment Palpitations assessment Type II diabetes without complic ation assessment GERD w/o esophagitis assessment Hypertension assessment Stroke Patient Care Teams Name Effective Dates (start - stop) Status Members No Information
--- OUTSIDE RECORDS SUMMARY | 2025-02-16 17:50 | XMS_ITS | Continuity of Care Document ---
Author Organization [facility] Address [address] [place] [address] Phone Care Team Providers Care Critical Care Registered Nurse Name Role Phone Unavailable Unavailable Unavailable Allergies, [...] IENT VISIT, EST [facility], [address] [place] [address], [id number], tel:[phone] [facility] shoulder (chief complaint) Pain in left shoulder 0 No Information OFFICE/OUTPAT IENT VISIT, NEW [facility], [address] [place] [address], [id number], [place] tel:[phone] [facility] shoulder (chief complaint) Incomplete rotatr-cuff tear/ruptr of r shoulder, not trauma [address] MENDIETA[address] [place] [address], [id number], [place]. tel:[phone] Referring Provider: ANAM YUN MD, [address] [place] [address], [id number]. tel:[phone] Family History Family Member Type Diagnosis Age At Onset No Information Payers Payer name Insurance type Covered green party ID Authoriza titriston(s) MEDICARE MB [id number] Social History Type Description Quantity Date Captured [...]
[2025-02-16 18:02] VITALS: BP 112/67; PULSE 168; RESP 20; O2SAT 100
--- NOTE | 2025-02-16 18:27 | ED_ITS ---
HPI - Chest Pain General Chief Complaint: Chest Pain Stated Complaint: palpitations, CP Time Seen by Provider: 02/16/25 18:20 History of Present Illness HPI narrative: Patient is a 64-year-old female who presents ER with racing of the heart. Sudden onset this afternoon. History of atrial flutter in the past. Causing tightness in the chest. She feels very shaking injury. She did have some coffee today. No fevers or chills or sweats. Compliant with her home medication. Does not have a thread weaver locally. Related Data Home Medications ?Medication ?Instructions ?Recorded ?Confirmed ?Last Taken ?Type alprazolam 0.5 mg tablet (Xanax) 0.5 mg PO QHS PRN anxiety 03/08/23 12/02/24 10/20/24 History ascorbic acid (vitamin C) 250 mg 125 mg PO DAILY 03/08/23 12/02/24 10/21/24 History tablet aspirin 81 mg tablet,delayed 81 mg PO DAILY 03/08/23 12/02/24 10/20/24 History release (Adult Low Dose Aspirin) cetirizine 10 mg tablet (Zyrtec) 10 mg PO DAILY PRN allergy symptoms 03/08/23 12/02/24 10/21/24 History cranberry extract 200 mg capsule 36,000 mg PO DAILY 03/08/23 12/02/24 10/21/24 History dicyclomine 20 mg tablet 20 mg PO BID 03/08/23 12/02/24 10/21/24 History ferrous sulfate 325 mg (65 mg 325 mg PO DAILY 03/08/23 12/02/24 10/21/24 History iron) tablet furosemide 40 mg tablet (Lasix) 40 mg PO QAM 03/08/23 12/02/24 10/21/24 History glipizide 5 mg tablet 5 mg PO BID 03/08/23 12/02/24 10/21/24 History hydrocodone 7.5 mg-acetaminophen 1 tablet PO BID 03/08/23 12/02/24 10/20/24 History 750 mg tablet mecobalamin (vitamin B12) 5,000 5,000 mcg PO DAILY 03/08/23 12/02/24 10/21/24 History mcg chewable tablet metformin 1,000 mg tablet,extended 1,000 mg PO BID 03/08/23 12/02/2410/21/25 History release 24hr (osmotic) multivitamin 1 tablet PO DAILY 03/08/23 12/02/24 10/21/24 History pantoprazole 40 mg tablet,delayed 40 mg PO QAM 03/08/23 12/02/24 10/21/24 History release potassium chloride 20 mEq 20 meq PO DAILY 03/08/23 12/02/24 10/21/24 History tablet,extended release sertraline 100 mg tablet 100 mg PO DAILY 03/08/23 12/02/24 10/20/24 History Allergies Allergy/AdvReac Type Severity Reaction Status Date / Time adhesive tape Allergy Intermediate Rash Verified 02/16/25 18:12 amoxicillin (From Augmentin) AdvReac Intermediate Diarrhea Verified 02/16/25 18:12 clavulanic acid (From AdvReac Intermediate Diarrhea Verified 02/16/25 18:12 Augmentin) diphenhydramine (From AdvReac Intermediate Muscle Verified 02/16/25 18:12 Benadryl) Spasms Review of Systems 2 Review of Systems: All systems reviewed & are unremarkable except as noted in HPI and below Constitutional: Constitutional: Reports no additional constitutional complaints ENT: Reports system reviewed and no additional complaints, except as documented Cardiovascular: Cardiovascular: Reports no additional cardiovascular complaints Respiratory: Respiratory: Reports no additional respiratory complaints Musculoskeletal: Musculoskeletal: Reports no additional musculoskeletal complaints [facility] Past Medical History Medical History Atrial flutter Chronic kidney disease, stage 3 Hyperlipidemia Hypertension Depression with anxiety Coronary artery disease Type 2 diabetes mellitus Irritable bowel syndrome Cancer of left breast status post chemo radiation and mastectomy Chronic obstructive pulmonary disease Congestive heart failure Headache Arthritis Anxiety Surgical History Surgical History History of partial hysterectomy History of repair of left rotator cuff History of coronary artery bypass graft x 2 History of left mastectomy Family History Family History Father Alcoholism Daughter Depression Thyroid disorder Mother Acute myocardial infarction <65yo Social History Social History Social History: [place] due to the of her fiance of 12 years Surrogate medical decision maker: Breanna Ramirez, daughter. Code status: Full code. Smoking packs per day: 0.75 Smoking cigarettes per day: 15.0 Years smoked: 53 Smoking pack-years: 39.75 Smoking status: Current every day smoker Tobacco type: cigarettes Alcohol intake: never Substance use: never Do You Feel Safe in your Home?: Yes Lack of Transportation: No Lack of Food: Never True Current Housing: I Have Housing Concerned About Future Housing: No Difficulty Paying Gas/Electric Bills: No Difficulty Paying for Meds: No Currently Unemployed: No Education: Decline to Answer Difficulty w/ Childcare or Family Care: No Spiritual care concerns: No Exam 2 Narrative: GENERAL: Well-appearing, well-nourished, and in no acute distress. HEAD: Normocephalic, atraumatic. ENT: Mucous membranes moist. CHEST: Clear to auscultation. No respiratory distress. HEART: Tachycardic and regular. Normal peripheral pulses. ABDOMEN: Soft, nontender, nondistended. EXTREMITIES: Normal range of motion. No edema. SKIN: Warm, dry, no rash. NEURO: Alert and oriented x3. PSYCH: Normal mood and affect. Course Course Emergency Course: 1826: Adenosine 6mg IV x 1 with successful conversion from SVT to a normal sinus rhythm. 2024: Patient stable and without chest discomfort. Discussed lab results. Also spoke with Cardiology. Toni for outpatient follow-up. Patient educated on hyperglycemia. Follow-up with her PCP as well. Patient is currently taking glipizide but will not take insulin because she does not like needles. Vital Signs Vital signs: Vital Signs Pulse Rate 168 H 02/16/25 18:02 Respiratory Rate 20 02/16/25 18:02 Blood Pressure 112/67 02/16/25 18:02 Pulse Oximetry 100 02/16/25 18:02 Oxygen Delivery Room Air 02/16/25 18:02 Pulse Rate 80 02/16/25 18:32 Respiratory Rate 14 02/16/25 18:30 Blood Pressure 119/80 02/16/25 18:30 Pulse Oximetry 98 02/16/25 18:30 Oxygen Delivery Room Air 02/16/25 18:02 MDM - Chest Pain Lab Data 02/16/25 18:24 02/16/25 18:24 Labs: Lab Results 02/16/25 Range/Units 18:24 WBC 11.5 H (4.5-10.0) K/mm3 RBC 4.44 (4.2-5.4) M/mm3 Hgb 12.6 (12.0-15.0) g/dL Hct 39.5 (37.0-47.0) % MCV 89.0 (80-100) fl MCH 28.4 (26-34) pg MCHC 31.9 L (32-36) g/dl RDW 13.6 (11.5-14.5) % Plt Count 321 (150-375) k/mm3 MPV 9.9 (7.4-10.4) fl Immature Gran % (Auto) 0.2 (0-0.5) % Neut % (Auto) 48.1 (45.5-73.1) % Lymph % (Auto) 40.1 (18.3-44.2) % [place] % (Auto) 8.7 H (2.6-8.5) % Eos % (Auto) 2.3 (0-4.4) % Baso % (Auto) 0.6 (0.2-1.2) % Lymph # (Auto) 4.61 H (0.9-3.2) K/mm3 [place] # (Auto) 1.0 H (0.1-0.6) K/mm3 Eos # (Auto) 0.3 (0-0.3) K/mm3 Baso # (Auto) 0.1 (0.0-0.1) K/mm3 Abs Immat Gran (auto) 0.02 (0.00-0.031) K/mm3 Absolute Neuts (auto) 5.5 (1.3-6.7) K/mm3 Absolute Nucleated RBC 0.000 (0.0-0.012) K/mm3 Nucleated RBC % 0.0 (0.0-0.2) % PT 11.7 (11.1-14.7) Seconds INR 0.9 APTT 26.3 (22.3-36.8) Seconds Sodium 133 L (137-145) mmol/L Potassium 5.0 (3.4-5.0) mmol/L Chloride 98 (98-107) mmol/L Carbon Dioxide 23 (22-30) mmol/L Anion Gap 12 (4-12) mmol/L BUN 26 H (7-17) mg/dL Creatinine 1.72 H (0.7-1.0) mg/dL Estim Creat Clear Calc 27 ml/min Estimated GFR 30 L (59 - ) Glucose 372 H (65-110) mg/dL Calcium 9.5 (8.4-10.2) mg/dL Total Bilirubin 0.2 (0.2-1.3) mg/dL AST 34 (14-36) U/L ALT 24 (6-35) U/L Alkaline Phosphatase 112 (38-126) U/L Troponin I < 0.012 (0.000-0.034) ng/mL Total Protein 7.6 (6.3-8.2) g/dL Albumin 4.2 (3.5-5.1) g/dL Lipase 353 H (23-300) U/L Imaging Data Radiologist's impression: ITS Impressions Chest X-Ray 02/16/25 19:44 IMPRESSION: No focal infiltrate or effusion. ECG Data EKG #1: ECG completion date: 02/16/25 ECG completion time: 18:06 EKG Interpretation: tachycardia (169), sinus rhythm, non-specific ST changes, normal QRS and normal QT EKG #2: ECG completion date: 02/16/25 ECG completion time: 18:27 EKG Interpretation: normal rate (78), sinus rhythm, non-specific ST changes, normal QRS and normal QT Discharge Plan Discharge Clinical Impression: SVT (supraventricular tachycardia) Patient Disposition: Home Condition: Stable Instructions: Supraventricular Tachycardia (ED) Additional Instructions: Please return to the emergency department if you develop severe and persistent chest pain, difficulty breathing, dizziness, leg swelling or if you are coughing up blood as these can be signs of a medical emergency. Please call your doctor for a follow up appointment to determine the need for further testing. Speech your primary care doctor about better control of your blood sugar. Additionally avoid caffeinated beverages. Patient Language: Maldivian Prescriptions: No Action metformin 1,000 mg tablet extended release 24 hr 1,000 mg PO BID glipizide 5 mg tablet 5 mg PO BID dicyclomine 20 mg tablet 20 mg PO BID pantoprazole 40 mg tablet,delayed release (DR/EC) 40 mg PO QAM furosemide [Lasix] 40 mg tablet 40 mg PO QAM sertraline 100 mg tablet 100 mg PO DAILY alprazolam [Xanax] 0.5 mg tablet 0.5 mg PO QHS PRN (Reason: anxiety) potassium chloride 20 mEq tablet extended release 20 meq PO DAILY cetirizine [Zyrtec] 10 mg tablet 10 mg PO DAILY PRN (Reason: allergy symptoms) hydrocodone-acetaminophen 7.5-750 mg tablet 1 tablet PO BID aspirin [Adult Low Dose Aspirin] 81 mg tablet,delayed release (DR/EC) 81 mg PO DAILY mecobalamin (vitamin B12) 5,000 mcg tablet,chewable 5,000 mcg PO DAILY cranberry extract 200 mg capsule 36,000 mg PO DAILY Rx Instructions: administer with a meal ascorbic acid (vitamin C) 250 mg tablet 125 mg PO DAILY multivitamin Tablet 1 tablet PO DAILY ferrous sulfate 325 mg (65 mg iron) tablet 325 mg PO DAILY atorvastatin 40 mg Tablet 40 mg PO QHS Qty: 30 1RF metoprolol tartrate 50 mg Tablet 50 mg PO Q12HR Qty: 60 1RF Xarelto 15 mg Tablet 15 mg PO DAILY@1700 Qty: 30 1RF gabapentin 800 mg tablet 800 mg PO TID Qty: 15 0RF Follow-up/Referrals: Edward Eid MD [Physician] - 1 Week Forrest Mahoney MD [Primary Care Provider] - 1 Week
[2025-02-16 18:30] VITALS: BP 119/80; PULSE 167; PULSE 80; RESP 14; O2SAT 98
[2025-02-16 18:32] VITALS: PULSE 80
[2025-02-16] MEDS: ADENOSINE IV SOLN 6 MG/2 ML VIAL 18 MG (18:32)
[2025-02-16] MEDS: SODIUM CHLORIDE 0.9% IV 1,000 ML 999 ML (18:33)
[2025-02-16 18:41] LABS: Alanine Aminotransferase 24 U/L (6-35); Albumin Level 4.2 g/dL (3.5-5.1); Alkaline Phosphatase 112 U/L (38-126); Anion Gap 12 mmol/L (4-12); Aspartate Amino Transferase 34 U/L (14-36); Bilirubin,Total 0.2 mg/dL (0.2-1.3); Blood Urea Nitrogen 26 mg/dL (7-17); Calcium 9.5 mg/dL (8.4-10.2); Carbon Dioxide 23 mmol/L (22-30); Chloride 98 mmol/L (98-107); Estimated CRCL calculation 27 ml/min; Estimated Glomerular Filt Rate 30; Glucose 372 mg/dL (65-110); Lipase 353 U/L (23-300); Potassium 5.0 mmol/L (3.4-5.0); Sodium 133 mmol/L (137-145); Total Protein 7.6 g/dL (6.3-8.2)
[2025-02-16 18:43] LABS: INR 0.9; Prothrombin Time 11.7 Seconds (11.1-14.7)
[2025-02-16 18:44] LABS: Partial Thromboplastin Time 26.3 Seconds (22.3-36.8)
[2025-02-16 18:49] LABS: Hematocrit 39.5 % (37.0-47.0); Hemoglobin 12.6 g/dL (12.0-15.0); Immature Granulocyte Percent A 0.2 % (0-0.5); Lymphocytes Absolute Auto 4.61 K/mm3 (0.9-3.2); Mean Corpuscular HGB Conc 31.9 g/dl (32-36); Mean Corpuscular Hemoglobin 28.4 pg (26-34); Mean Corpuscular Volume 89.0 fl (80-100); Nucleated Red Blood Cells Absolute Auto 0.000 K/mm3 (0.0-0.012); Nucleated Red Blood Cells Perc 0.0 % (0.0-0.2); Platelet Count Result 321 k/mm3 (150-375); Red Blood Count 4.44 M/mm3 (4.2-5.4); White Blood Count 11.5 K/mm3 (4.5-10.0)
[2025-02-16 18:53] LABS: Troponin I < 0.012 ng/mL (0.000-0.034)
--- OUTSIDE RECORDS SUMMARY | 2025-02-16 19:35 | XMS_ITS | Continuity of Care Document ---
Author Organization [facility] Address [address] [place] [address] Phone Care Team Providers Care Military Pay Clerk Name Role Phone Alexey Millan MD [...] Copied on Encounter OFFICE/OUTPA TIENT VISIT, EST [facility], [address], [place], [place], [id number] , [place] tel:[phone] Tej Gorman f/u (chief complaint) Freeform HPI (chief complaint) Palpitatio ns (chief complaint) Dyspnea (chief complaint) COPDShortness of breathNicotine dependence, cigarettes, uncomplicatedAtherosc lerotic heart disease of [place] coronary artery with unspecified angina pectorisPalpitationsT ype II diabetes without complicationGERD w/o esophagitisHypertensi onStroke 4 Monty Blackburn. [address] [place] [address], [id number] , [place]. tel:[phone] Referring Provider: Tesha Fernandez COFOUNDER, [address] [place], [address]. tel:[phone] OFFICE/OUTPA TIENT VISIT, EST [facility], [address] [place] [address], [id number] , [place] tel:[phone] [facility] Freeform HPI (chief complaint) COPDShortness of breathNicotine dependence, cigarettes, uncomplicatedAtherosc lerotic heart disease of [place] coronary artery with unspecified angina pectorisPalpitations 3 Monty Blackburn. [address] [place] [address], [id number] , [place]. tel:[phone] Referring Provider: Alexey Reyna, [address] [place] [address], [id number] . tel:[phone] [facility], [address] [place] [address], [id number] , [place] tel:[phone] [facility] No Information 2 Monty Blackburn. [address] [place] [address], [id number] , [place]. [phone] Referring Provider: Alexey Reyna, [address] [place] [address], [id number] . tel:[phone] OFFICE/OUTPA TIENT VISIT, EST [facility], [address] [place] [address], [id number] , [place] tel:[phone] [facility] HPI (chief complaint) COPDAtherosclerotic heart disease of [place] coronary artery with unspecified angina pectorisChest painShortness of breathPalpitationsNic otine dependence, cigarettes, uncomplicated 2 Claude Rosario. [address] [place] [address] [place], [place], [id number] , [place]. [phone] Referring Provider: Marlene Buchanan, [address] [place] [address] [place], [address] . tel:[phone] [facility], [address] [place] [address], [id number] , tel:[phone] [facility] No Information 2 Monty Blackburn. [address] [place] [address], [id number] , . tel:[phone] Referring Provider: Alexey Reyna, [address] [place] [address], [id number] . tel:[phone] OFFICE/OUTPA TIENT VISIT, NEW [facility], [address] [place] [address], [id number] , tel:[phone] [facility] Freeform HPI (chief complaint) Freeform HPI (chief complaint) Chest Pain (chief complaint) Dyspnea (chief complaint) Palpitatio ns (chief complaint) COPDAtherosclerotic heart disease of [place] coronary artery with unspecified angina pectorisChest painShortness of breathPalpitationsNic otine dependence, cigarettes, uncomplicated 2 Monty Blackburn. [address] [place] [address], [id number] , . tel:[phone] Referring Provider: Alexey Reyna, [address] [place] [address], [id number] . tel:[phone] Family History Family Member Type Diagnosis Age At Onset Problem (finding) Myocardial infarction Problem (finding) Family history of Diabe malina mellitus Problem (finding) Family history of hyper tension Problem (finding) Family history of strok e Payers Payer name Insurance type Covered democrat ID Authoriza ti(s) [facility] [id number] Social History Type Description Quantity Date Captured [...] uncomplicated assessment Atherosclerotic hear t disease of [place] coronary artery with unspecified angina pectoris assessment Palpitations assessment Type II diabetes without complic ation assessment GERD w/o esophagitis assessment Hypertension assessment Stroke Patient Care Teams Name Effective Dates (start - stop) Status Members No Information
--- OUTSIDE RECORDS SUMMARY | 2025-02-16 19:35 | XMS_ITS | Continuity of Care Document ---
Author Organization [facility] Address [address] [place] [address] Phone Care Team Providers Care Textile Scrap Salvager Name Role Phone Unavailable Unavailable Unavailable Allergies, [...] IENT VISIT, EST [facility], [address] [place] [address], [id number], tel:[phone] [facility] shoulder (chief complaint) Pain in left shoulder 0 No Information OFFICE/OUTPAT IENT VISIT, NEW [facility], [address] [place] [address], [id number], [place] tel:[phone] [facility] shoulder (chief complaint) Incomplete rotatr-cuff tear/ruptr of r shoulder, not trauma [address]. [address] [place] [address], [id number], [place]. tel:[phone] Referring Provider: ANAM YUN MD, [address] [place] [address], [id number]. tel:[phone] Family History Family Member Type Diagnosis Age At Onset No Information Payers Payer name Insurance type Covered green party ID Authoriza titriston(s) MEDICARE MB [id number] Social History Type Description Quantity Date Captured [...]
--- NOTE | 2025-02-16 20:09 | ECG_ITS ---
Test Date: 2025-02-16 18:27:26 Measurements Intervals [place] Rate: 78 P: 56 OK: 141 QRS: 24 QRSD: 85 T: 95 QT: 364 QTc: 415 Interpretive Statements SINUS RHYTHM WITH SINUS ARRHYTHMIA POSSIBLE LEFT ATRIAL ENLARGEMENT POSSIBLE RIGHT VENTRICULAR CONDUCTION DELAY ST-T WAVE ABNORMALITY IN LAT/HIGH LAT LEADS- CONSIDER ISCHEMIA BASELINE ARTIFACT- I, II, III, AVR, AVL, AVF ABNORMAL ECG Compared to ECG 02/16/2025 18:06:52 Supraventricular tachycardia no longer present Electronically Signed On 02-16-2025 20:58:14 CDT by Barry Cox D.O.
== END 2025-02-16 20:46 | disposition home or self-care (01) ==
PROVIDERS: Family Medicine; Emergency Provider Emergency Medicine; PCP Family Medicine
DX: I47.10 Supraventricular tachycardia, unspecified (principal); R94.31 Abnormal electrocardiogram [ECG] [EKG]; I13.0 Hypertensive heart and chronic kidney disease with heart failure and stage 1 through stage 4 chronic kidney disease, or unspecified chronic kidney disease; E11.22 Type 2 diabetes mellitus with diabetic chronic kidney disease; N18.30 Chronic kidney disease, stage 3 unspecified; I50.9 Heart failure, unspecified; F32.A Depression, unspecified; F41.9 Anxiety disorder, unspecified; I25.10 Atherosclerotic heart disease of native coronary artery without angina pectoris; Z85.3 Personal history of malignant neoplasm of breast; J44.9 Chronic obstructive pulmonary disease, unspecified; M19.90 Unspecified osteoarthritis, unspecified site
CPT/HCPCS: 36415; 71045; 80053; 83690; 84484; 85025; 85610; 85730; 93005; 96374; 99284; J0153; J7030

== ENCOUNTER 2025-04-11 17:38 | Emergency (ER) | payer MEDICARE, SELFPAY ==
--- OUTSIDE RECORDS SUMMARY | 2019-09-17 09:00 | XMS_ITS | Continuity of Care Document ---
Author Organization [facility] Address [address] [place] [address] Phone Care Team Providers Care Vba Developer Name Role Phone Unavailable Unavailable Unavailable Allergies, [...] IENT VISIT, EST [facility], [address] [place] [address], [id number], tel:[phone] [facility] shoulder (chief complaint) Pain in left shoulder 0 No Information OFFICE/OUTPAT IENT VISIT, NEW [facility], [address] [place] [address], [id number], [place] tel:[phone] [facility] shoulder (chief complaint) Incomplete rotatr-cuff tear/ruptr of r shoulder, not trauma [address] [place] [place] [address], [id number], [place]. tel:[phone] Referring Provider: ANAM YUN MD, [address] [place] [address], [id number]. tel:[phone] Family History Family Member Type Diagnosis Age At Onset No Information Payers Payer name Insurance type Covered alliance party ID Authoriza titriston(s) MEDICARE MB [id number] Social History Type Description Quantity Date Captured [...]
--- OUTSIDE RECORDS SUMMARY | 2019-09-17 09:00 | XMS_ITS | Continuity of Care Document ---
Author Organization [facility] Address [address] [place] [address] Phone Care Team Providers Care Rand Maker Name Role Phone Unavailable Unavailable Unavailable Allergies, [...] IENT VISIT, EST [facility], [address] [place] [address], [id number], tel:[phone] [facility] shoulder (chief complaint) Pain in left shoulder 0 No Information OFFICE/OUTPAT IENT VISIT, NEW [facility], [address] [place] [address], [id number], [place] tel:[phone] [facility] shoulder (chief complaint) Incomplete rotatr-cuff tear/ruptr of r shoulder, not trauma [address] [place] [place] [address], [id number], [place]. tel:[phone] Referring Provider: ANAM YUN MD, [address] [place] [address], [id number]. tel:[phone] Family History Family Member Type Diagnosis Age At Onset No Information Payers Payer name Insurance type Covered democrat ID Authoriza titriston(s) MEDICARE MB [id number] Social History Type Description Quantity Date Captured [...]
--- OUTSIDE RECORDS SUMMARY | 2024-04-15 05:15 | XMS_ITS | Continuity of Care Document ---
Author Organization [facility] Address [address] [place] [address] Phone Care Team Providers Care Communication Clerk Name Role Phone Alexey Millan MD Unavailable [...] Copied on Encounter OFFICE/OUTPA TIENT VISIT, EST [facility], [address], [place], [place], [id number] , [place] tel:[phone] Tej Gorman f/u (chief complaint) Freeform HPI (chief complaint) Palpitatio ns (chief complaint) Dyspnea (chief complaint) COPDShortness of breathNicotine dependence, cigarettes, uncomplicatedAtherosc lerotic heart disease of [place] coronary artery with unspecified angina pectorisPalpitationsT ype II diabetes without complicationGERD w/o esophagitisHypertensi onStroke 4 Monty Blackburn. [address] [place] [address], [id number] , [place]. tel:[phone] Referring Provider: Tesha Fernandez [employer] SEWER LINE REPAIRER, [address] [place], [address]. tel:[phone] OFFICE/OUTPA TIENT VISIT, EST [facility], [address] [place] [address], [id number] , [place] tel:[phone] [facility] Freeform HPI (chief complaint) COPDShortness of breathNicotine dependence, cigarettes, uncomplicatedAtherosc lerotic heart disease of [place] coronary artery with unspecified angina pectorisPalpitations 3 Monty Blackburn. [address] [place] [address], [id number] , [place]. tel:[phone] Referring Provider: Alexey Reyna, [address] [place] [address], [id number] . tel:[phone] [facility], [address] [place] [address], [id number] , [place] tel:[phone] [facility] No Information 2 Monty Blackburn. [address] [place] [address], [id number] , [place]. [phone] Referring Provider: Alexey Reyna, [address] [place] [address], [id number] . tel:[phone] OFFICE/OUTPA TIENT VISIT, EST [facility], [address] [place] [address], [id number] , [place] tel:[phone] [facility] (chief complaint) COPDAtherosclerotic heart disease of [place] coronary artery with unspecified angina pectorisChest painShortness of breathPalpitationsNic otine dependence, cigarettes, uncomplicated 2 Claude Rosario. [address] [place] [address] [place], [place], [id number] , [place]. [phone] Referring Provider: Marlene Buchanan, [address] [place] [address] [place], [address] . tel:[phone] [facility], [address] [place] [address], [id number] , tel:[phone] [facility] No Information 2 Monty Blackburn. [address] [place] [address], [id number] , . tel:[phone] Referring Provider: Alexey Reyna, [address] [place] [address], [id number] . tel:[phone] OFFICE/OUTPA TIENT VISIT, NEW [facility], [address] [place] [address], [id number] , tel:[phone] [facility] Freeform HPI (chief complaint) Freeform HPI (chief complaint) Chest Pain (chief complaint) Dyspnea (chief complaint) Palpitatio ns (chief complaint) COPDAtherosclerotic heart disease of [place] coronary artery with unspecified angina pectorisChest painShortness of breathPalpitationsNic otine dependence, cigarettes, uncomplicated 2 Monty Blackburn. [address] [place] [address], [id number] , . tel:[phone] Referring Provider: Alexey Reyna, [address] [place] [address], [id number] . tel:[phone] Family History Family Member Type Diagnosis Age At Onset Problem (finding) Myocardial infarction Problem (finding) Family history of Diabe malina mellitus Problem (finding) Family history of hyper tension Problem (finding) Family history of strok e Payers Payer name Insurance type Covered democrat ID Authoriza ti(s) [facility] [id number] Social History Type Description Quantity Date Captured [...] uncomplicated assessment Atherosclerotic hear t disease of [place] coronary artery with unspecified angina pectoris assessment Palpitations assessment Type II diabetes without complic ation assessment GERD w/o esophagitis assessment Hypertension assessment Stroke Patient Care Teams Name Effective Dates (start - stop) Status Members No Information
--- OUTSIDE RECORDS SUMMARY | 2024-04-15 05:15 | XMS_ITS | Continuity of Care Document ---
Author Organization [facility] Address [address] [place] [address] Phone Care Team Providers Care Metal Control Worker Name Role Phone Alexey Millan MD Unavailable [...] BY MOUTH ONCE DAILY NEEDED - Active sertraline 100 mg tablet TAKE 1 TABLET BY MOUTH ONCE DAILY - Active metformin 1,000 mg tablet TAKE 1 TABLET BY MOUTH TWICE DAILY - Active dicyclomine 20 mg tablet - Active atorvastatin 20 mg tablet - Active potassium chloride ER 20 mEq tablet,extended release(part/cryst) TAKE 1 TABLET BY MOUTH ONCE DAILY - Active Vitamin C 1,000 mg tablet take 1 tablet by oral route every day 1 tablet - Active iron 325 mg (65 mg iron) tablet take 1 tablet by ORAL route 2 times every day 325 MG - Active Diflucan 200 mg tablet take 1 tablet by oral route every day - Active Claritin 10 mg tablet take 1 tablet by oral route every day 10 MG - Active b12 BUCCAL - Active hydrocodone 7.5 mg-acetaminophen 325 mg tablet take 1 tablet by oral route every hour as needed for pain 1 tablet - Active alprazolam 0.5 mg tablet take 1 tablet by oral route every day 0.5 MG - Active gabapentin 800 mg tablet take 1 tablet by oral route every 3 days 800 MG - Active pantoprazole 40 mg tablet,delayed release take 1 tablet by oral route every day 40 MG - Active metoprolol tartrate 25 mg tablet [...] Copied on Encounter OFFICE/OUTPA TIENT VISIT, EST [facility], [address], [place], [place], [id number] , [place] tel:[phone] Tej Gorman f/u (chief complaint) Freeform HPI (chief complaint) Palpitatio ns (chief complaint) Dyspnea (chief complaint) COPDShortness of breathNicotine dependence, cigarettes, uncomplicatedAtherosc lerotic heart disease of [place] coronary artery with unspecified angina pectorisPalpitationsT ype II diabetes without complicationGERD w/o esophagitisHypertensi onStroke 4 Monty Blackburn. [address] [place] [address], [id number] , [place]. tel:[phone] Referring Provider: Tesha Fernandez [employer] SUPERVISOR, [address] [place], [address]. tel:[phone] OFFICE/OUTPA TIENT VISIT, EST [facility], [address] [place] [address], [id number] , [place] tel:[phone] [facility] Freeform HPI (chief complaint) COPDShortness of breathNicotine dependence, cigarettes, uncomplicatedAtherosc lerotic heart disease of [place] coronary artery with unspecified angina pectorisPalpitations 3 Monty Blackburn. [address] [place] [address], [id number] , [place]. [phone] Referring Provider: Alexey Reyna, [address] [place] [address], [id number] . tel:[phone] [facility], [address] [place] [address], [id number] , [place] tel:[phone] [facility] No Information 2 Monty Blackburn. [address] [place] [address], [id number] , [place]. [phone] Referring Provider: Alexey Reyna, [address] [place] [address], [id number] . tel:[phone] OFFICE/OUTPA TIENT VISIT, EST [facility], [address] [place] [address], [id number] , [place] tel:[phone] [facility] HPI (chief complaint) COPDAtherosclerotic heart disease of [place] coronary artery with unspecified angina pectorisChest painShortness of breathPalpitationsNic otine dependence, cigarettes, uncomplicated 2 Claude Rosario. [address] [place] [address] [place], [place], [id number] , [place]. [phone] Referring Provider: Marlene Buchanan, [address] [place] [address] [place], [address] . tel:[phone] [facility], [address] [place] [address], [id number] , tel:[phone] [facility] No Information 2 Monty Blackburn. [address] [place] [address], [id number] , . tel:[phone] Referring Provider: Alexey Reyna, [address] [place] [address], [id number] . tel:[phone] OFFICE/OUTPA TIENT VISIT, NEW [facility], [address] [place] [address], [id number] , tel:[phone] [facility] Freeform HPI (chief complaint) Freeform HPI (chief complaint) Chest Pain (chief complaint) Dyspnea (chief complaint) Palpitatio ns (chief complaint) COPDAtherosclerotic heart disease of [place] coronary artery with unspecified angina pectorisChest painShortness of breathPalpitationsNic otine dependence, cigarettes, uncomplicated 2 Monty Blackburn. [address] [place] [address], [id number] , . tel:[phone] Referring Provider: Alexey Reyna, [address] [place] [address], [id number] . tel:[phone] Family History Family Member Type Diagnosis Age At Onset Problem (finding) Myocardial infarction Problem (finding) Family history of Diabe malina mellitus Problem (finding) Family history of hyper tension Problem (finding) Family history of strok e Payers Payer name Insurance type Covered republican ID Authoriza ti(s) [facility] [id number] Social History Type Description Quantity Date Captured [...] uncomplicated assessment Atherosclerotic hear t disease of [place] coronary artery with unspecified angina pectoris assessment Palpitations assessment Type II diabetes without complic ation assessment GERD w/o esophagitis assessment Hypertension assessment Stroke Patient Care Teams Name Effective Dates (start - stop) Status Members No Information
[2025-04-11] VITALS (26 sets, daily range): BP systolic 67–158; BP diastolic 46–100; PULSE 76–170; RESP 10–24; TEMP 36.4; O2SAT 86–100
--- NOTE | ~2025-04-11 | XR_ITS ---
EXAMINATION: XR chest 1V portable COMPARISON: No comparisons available. HISTORY: arrhythmia FINDINGS: Mild pulmonary venous congestion. No pneumothorax. Mild cardiomegaly. Mediastinal and hilar contours are within normal limits. Post sternotomy. Miscellaneous: None Impression: Mild CHF Reviewed, dictated and finalized at location P. Impression: Mild CHF
--- NOTE | ~2025-04-11 | XR_ITS ---
EXAMINATION: XR ankle RT min 3V, 04/11/2025 18:35 CDT HISTORY: swelling, fall COMPARISON: No comparisons available. Findings: Nondisplaced fracture distal fibula No significant degenerative changes. Soft tissues unremarkable. Impression: Distal fibular fracture Reviewed, dictated and finalized at location P. Impression: Distal fibular fracture
--- NOTE | ~2025-04-11 | US_ITS ---
EXAMINATION: US venous doppler LE RT, 04/11/2025 19:06 CDT HISTORY: swelling, rule out DVT Comparison: None Technique: Hopkins-scale and color Doppler images were attempted of the lower saphenofemoral junction, common femoral vein,superficial femoral vein, proximal deep femoral vein, proximal deep femoral vein, popliteal vein and posterior tibial veins. Findings: Deep Venous System:Normal flow, augmentation and compressibility. No echogenic thrombus identified. The contralateral saphenofemoral junction appears unremarkable. Superficial Venous SystemNo superficial thrombophlebitis. Soft tissues: Soft tissues are unremarkable. Impression: Negative for DVT. Reviewed, dictated and finalized at location P. Impression: Negative for DVT.
--- NOTE | 2025-04-11 17:43 | ECG_ITS ---
Test Date: 2025-04-11 17:50:39 Measurements Intervals [place] Rate: 167 P: 0 NE: 0 QRS: 40 QRSD: 89 T: 101 QT: 271 QTc: 452 Interpretive Statements SUPRAVENTRICULAR TACHYCARDIA Electronically Signed On 04-12-2025 20:46:32 CDT by Demar Aldana D.O
[2025-04-11] MEDS: SODIUM CHLORIDE 0.9% IV 1,000 ML 999 ML IV CONT (18:09)
[2025-04-11] MEDS: ADENOSINE IV SOLN 6 MG/2 ML VIAL IV PUSH (18:10)
--- NOTE | 2025-04-11 18:13 | ECG_ITS ---
Test Date: 2025-04-11 18:15:32 Measurements Intervals [place] Rate: 84 P: 46 SD: 138 QRS: 31 QRSD: 83 T: 81 QT: 375 QTc: 445 Interpretive Statements SINUS RHYTHM POSSIBLE RIGHT VENTRICULAR CONDUCTION DELAY Electronically Signed On 04-12-2025 20:47:07 CDT by Demar Aldana D.O
--- NOTE | 2025-04-11 18:13 | ED.ARRPALP ---
HPI - Arrhythmia/Palpitations General Chief Complaint: Arrhythmia/Palpitations Stated Complaint: high heart rate Time Seen by Provider: 04/11/25 17:47 Source: patient, family, RN notes reviewed and old records reviewed Mode of arrival: ambulatory Limitations: no limitations History of Present Illness HPI narrative: THis is a 64 year old female with history of anxiety, hyperlipidemia, DM, SVT who presents for evaluation of rapid heart rate. Patient states just prior to arrival she developed rapid heart rate so she came to ER. She is denies chest pain or shortness of breath. She does reports migraine headache that she gets when she has SVT. She also complains about right ankle pain and swelling. She injured her right ankle after falling on . She is scheduled for heart ablation and her nurse executive is Dr. Baldwin. She is taking metoprolol but she is not able to afforder her Xarelto. MD complaint: rapid heart beat Related Data Home Medications ?Medication ?Instructions ?Recorded ?Confirmed ?Last Taken ?Type alprazolam 0.5 mg tablet (Xanax) 0.5 mg PO QHS PRN anxiety 03/08/23 12/02/24 10/20/24 History ascorbic acid (vitamin C) 250 mg 125 mg PO DAILY 03/08/23 12/02/24 10/21/24 History tablet aspirin 81 mg tablet,delayed 81 mg PO DAILY 03/08/23 12/02/24 10/20/24 History release (Adult Low Dose Aspirin) cetirizine 10 mg tablet (Zyrtec) 10 mg PO DAILY PRN allergy symptoms 03/08/23 12/02/24 10/21/24 History cranberry extract 200 mg capsule 36,000 mg PO DAILY 03/08/23 12/02/24 10/21/24 History dicyclomine 20 mg tablet 20 mg PO BID 03/08/23 12/02/24 10/21/24 History ferrous sulfate 325 mg (65 mg 325 mg PO DAILY 03/08/23 12/02/24 10/21/24 History iron) tablet furosemide 40 mg tablet (Lasix) 40 mg PO QAM 03/08/23 12/02/24 10/21/24 History Held on 10/23/24. Instructions: HOLD - Resume when okay with your doctor glipizide 5 mg tablet 5 mg PO BID 03/08/23 12/02/24 10/21/24 History Held on 10/23/24. Instructions: HOLD - Resume when okay with your doctor hydrocodone 7.5 mg-acetaminophen 1 tablet PO BID 03/08/23 12/02/24 10/20/24 History 750 mg tablet mecobalamin (vitamin B12) 5,000 5,000 mcg PO DAILY 03/08/23 12/02/24 10/21/24 History mcg chewable tablet metformin 1,000 mg tablet,extended 1,000 mg PO BID 03/08/23 12/02/24 10/21/24 History release 24hr (osmotic) Held on 10/23/24. Instructions: HOLD - Resume when okay with your doctor multivitamin 1 tablet PO DAILY 03/08/23 12/02/24 10/21/24 History pantoprazole 40 mg tablet,delayed 40 mg PO QAM 03/08/23 12/02/24 10/21/24 History release potassium chloride 20 mEq 20 meq PO DAILY 03/08/23 12/02/24 10/21/24 History tablet,extended release Held on 10/23/24. Instructions: HOLD - Resume when okay with your doctor sertraline 100 mg tablet 100 mg PO DAILY 03/08/23 12/02/24 10/20/24 History Allergies Allergy/AdvReac Type Severity Reaction Status Date / Time adhesive tape Allergy Intermediate Rash Verified 02/16/25 18:12 amoxicillin (From Augmentin) AdvReac Intermediate Diarrhea Verified 02/16/25 18:12 clavulanic acid (From AdvReac Intermediate Diarrhea Verified 02/16/25 18:12 Augmentin) diphenhydramine (From AdvReac Intermediate Muscle Verified 02/16/25 18:12 Benadryl) Spasms [facility] Past Medical History Medical History Atrial flutter Chronic kidney disease, stage 3 Hyperlipidemia Hypertension Depression with anxiety Coronary artery disease Type 2 diabetes mellitus Irritable bowel syndrome Cancer of left breast status post chemo radiation and mastectomy Chronic obstructive pulmonary disease Congestive heart failure Headache Arthritis Anxiety Surgical History Surgical History History of partial hysterectomy History of repair of left rotator cuff History of coronary artery bypass graft x 2 History of left mastectomy Family History Family History Father Alcoholism Daughter Depression Thyroid disorder Mother Acute myocardial infarction <65yo Social History Social History Social History: [place] due to the of her fiance of 12 years Surrogate medical decision maker: Breanna Ramirez, daughter. Code status: Full code. Smoking packs per day: 0.75 Smoking cigarettes per day: 15.0 Years smoked: 53 Smoking pack-years: 39.75 Smoking status: Current every day smoker Tobacco type: cigarettes Alcohol intake: never Substance use: never Do You Feel Safe in your Home?: Yes Lack of Transportation: No Lack of Food: Never True Current Housing: I Have Housing Concerned About Future Housing: No Difficulty Paying Gas/Electric Bills: No Difficulty Paying for Meds: No Currently Unemployed: No Education: Decline to Answer Difficulty w/ Childcare or Family Care: No Spiritual care concerns: No Exam Const: General: no acute distress and alert Nutritional Appearance: well nourished Orientation/consciousness: patient oriented x3 HENMT: Head: normal to inspection Eyes: EOM: EOMs intact bilaterally Chest: Chest palpation & inspection: normal inspection of the chest Resp: Effort & Inspection: normal respiratory effort Auscultation: clear to auscultation bilaterally Cardio: Rate: tachycardic Rhythm: regular rhythm Heart sounds: Murmur heart sound present GI: GI Palp: Yes Soft to palpation, No Tenderness to palpation present (GI), No Guarding due to palpation present (GI) and No Rigid due to palpation Auscultation: normal bowel sounds Skin: Other: right dorsal foot ecchymosis Neuro: General: patient oriented x3, moves all extremities and CN's II-XI intact bilaterally Extrem: Other: right ankle swelling and bruising to right foot. Tenderness to right lateral ankle. no tenderness to her foot Psych: Mental Status: mental status grossly normal Affect: normal affect Attitude: cooperative Course Reevaluation(s) Reevaluation #1: I was at bedside with nursing. PAtient was given adenosine 6 mg IV push for SVT with heart rate 170. Heart rate converted to sinus rate 90s. BP 126/58 Date: 04/11/25 Time: 18:19 Reevaluation #2: I Discussed with patient that she will be discharge home with splint for fracture. She will need to follow up with ortho and nurse executive. Date: 04/11/25 Time: 19:42 Consultations Consultation #1: I discussed with Dr. tiffanie Barnhart who agrees patient can be discharge home . She has converted to sinus . Rate of 84. Continue the 50 mg metoprolol. Date: 04/11/25 Time: 19:41 Vital Signs Vital signs: Vital Signs Temperature 97.6 F 04/11/25 17:39 Pulse Rate 170 H 04/11/25 17:39 Respiratory Rate 16 04/11/25 17:39 Blood Pressure 67/46 L 04/11/25 17:39 Pulse Oximetry 100 04/11/25 17:39 Temperature 97.6 F 04/11/25 17:39 Pulse Rate 88 04/11/25 18:34 Respiratory Rate 18 04/11/25 18:34 Blood Pressure 111/71 04/11/25 18:34 Pulse Oximetry 100 04/11/25 18:34 MDM - Arrhythmia/Palpitations Differential Diagnosis Differential diagnosis: Likely palpitations, anxiety, sinus tachycardia, artial fibrillation, supraventricular tachycardia and other (dehydration, DVT, ) Medical Records Attestation: I reviewed the patient's medical records. Lab Data Attestation: I reviewed the patient's lab results. 04/11/25 18:08 04/11/25 18:08 Labs: Lab Results 04/11/25 Range/Units 18:08 WBC 13.5 H (4.5-10.0) K/mm3 RBC 3.50 L (4.2-5.4) M/mm3 Hgb 10.2 L (12.0-15.0) g/dL Hct 32.0 L (37.0-47.0) % MCV 91.4 (80-100) fl MCH 29.1 (26-34) pg MCHC 31.9 L (32-36) g/dl RDW 14.3 (11.5-14.5) % Plt Count 255 (150-375) k/mm3 MPV 9.9 (7.4-10.4) fl Immature Gran % (Auto) 0.4 (0-0.5) % Neut % (Auto) 59.1 (45.5-73.1) % Lymph % (Auto) 29.2 (18.3-44.2) % [place] % (Auto) 9.1 H (2.6-8.5) % Eos % (Auto) 1.8 (0-4.4) % Baso % (Auto) 0.4 (0.2-1.2) % Lymph # (Auto) 3.93 H (0.9-3.2) K/mm3 [place] # (Auto) 1.2 H (0.1-0.6) K/mm3 Eos # (Auto) 0.2 (0-0.3) K/mm3 Baso # (Auto) 0.1 (0.0-0.1) K/mm3 Abs Immat Gran (auto) 0.06 H (0.00-0.031) K/mm3 Absolute Neuts (auto) 8.0 H (1.3-6.7) K/mm3 Absolute Nucleated RBC 0.000 (0.0-0.012) K/mm3 Nucleated RBC % 0.0 (0.0-0.2) % PT 12.4 (11.1-14.7) Seconds INR 0.9 APTT 29.8 (22.3-36.8) Seconds Sodium 134 L (137-145) mmol/L Potassium 5.1 H (3.4-5.0) mmol/L Chloride 102 (98-107) mmol/L Carbon Dioxide 26 (22-30) mmol/L Anion Gap 6 (4-12) mmol/L BUN 29 H (7-17) mg/dL Creatinine 2.05 H (0.7-1.0) mg/dL Estim Creat Clear Calc 23 ml/min Estimated GFR 24 L (59 - ) Glucose 209 H (65-110) mg/dL Calcium 8.8 (8.4-10.2) mg/dL Magnesium 1.7 (1.6-2.3) mg/dL Total Bilirubin 0.4 (0.2-1.3) mg/dL AST 54 H (14-36) U/L ALT 29 (6-35) U/L Alkaline Phosphatase 102 (38-126) U/L Troponin I < 0.012 (0.000-0.034) ng/mL Total Protein 6.9 (6.3-8.2) g/dL Albumin 3.7 (3.5-5.1) g/dL Lipase 95 (23-300) U/L Imaging Data Radiologist's impression: ITS Impressions Ankle X-Ray 04/11/25 18:44 Impression: Distal fibular fracture Chest X-Ray 04/11/25 18:45 Impression: Mild CHF Venous Doppler Study 04/11/25 19:12 Impression: Negative for DVT. ECG Data EKG #1: Attestation: I personally reviewed and interpreted this ECG as follows: ECG completion date: 04/11/25 ECG completion time: 17:50 EKG Interpretation: tachycardia (167), SVT and NL axis EKG #2: Attestation: I personally reviewed and interpreted this ECG as follows: ECG completion date: 04/11/25 ECG completion time: 18:15 EKG Interpretation: normal rate (84), sinus rhythm, non-specific ST changes and NL axis Critical Care Time Critical Care Time Critical Care Time: Yes Total Critical Care Time: 40 Discharge Plan Discharge Clinical Impression: Supraventricular tachycardia, Chronic kidney disease, stage 3 Closed fibular fracture Qualifiers: Encounter type: initial encounter Fibula location: distal Laterality: right Patient Disposition: Home Condition: Stable Instructions: Supraventricular Tachycardia (ED), Ankle Fracture (ED) Additional Instructions: You were found to have an ankle fracture so please do not bear any weight. Use your crutches to get around. Call the orthopedic surgeon on Sunday to arrange for appointment. You also need to increase your fluid intake as you are dehydrated. Call your nurse executive about being unable to afford xarelto because you likely need to take at least aspirin Patient Language: [place] Prescriptions: No Action metformin 1,000 mg tablet extended release 24 hr 1,000 mg PO BID glipizide 5 mg tablet 5 mg PO BID dicyclomine 20 mg tablet 20 mg PO BID pantoprazole 40 mg tablet,delayed release (DR/EC) 40 mg PO QAM furosemide [Lasix] 40 mg tablet 40 mg PO QAM sertraline 100 mg tablet 100 mg PO DAILY alprazolam [Xanax] 0.5 mg tablet 0.5 mg PO QHS PRN (Reason: anxiety) potassium chloride 20 mEq tablet extended release 20 meq PO DAILY cetirizine [Zyrtec] 10 mg tablet 10 mg PO DAILY PRN (Reason: allergy symptoms) hydrocodone-acetaminophen 7.5-750 mg tablet 1 tablet PO BID aspirin [Adult Low Dose Aspirin] 81 mg tablet,delayed release (DR/EC) 81 mg PO DAILY mecobalamin (vitamin B12) 5,000 mcg tablet,chewable 5,000 mcg PO DAILY cranberry extract 200 mg capsule 36,000 mg PO DAILY Rx Instructions: administer with a meal ascorbic acid (vitamin C) 250 mg tablet 125 mg PO DAILY multivitamin Tablet 1 tablet PO DAILY ferrous sulfate 325 mg (65 mg iron) tablet 325 mg PO DAILY atorvastatin 40 mg Tablet 40 mg PO QHS Qty: 30 1RF metoprolol tartrate 50 mg Tablet 50 mg PO Q12HR Qty: 60 1RF Xarelto 15 mg Tablet 15 mg PO DAILY@1700 Qty: 30 1RF gabapentin 800 mg tablet 800 mg PO TID Qty: 15 0RF Follow-up/Referrals: Forrest Mahoney MD [Primary Care Provider, Family Practice] Melquiades Mckeon MD [Physician, Orthopedics]
[2025-04-11 18:20] LABS: Hematocrit 32.0 % (37.0-47.0); Hemoglobin 10.2 g/dL (12.0-15.0); Immature Granulocyte Percent A 0.4 % (0-0.5); Lymphocytes Absolute Auto 3.93 K/mm3 (0.9-3.2); Mean Corpuscular HGB Conc 31.9 g/dl (32-36); Mean Corpuscular Hemoglobin 29.1 pg (26-34); Mean Corpuscular Volume 91.4 fl (80-100); Nucleated Red Blood Cells Absolute Auto 0.000 K/mm3 (0.0-0.012); Nucleated Red Blood Cells Perc 0.0 % (0.0-0.2); Platelet Count Result 255 k/mm3 (150-375); Red Blood Count 3.50 M/mm3 (4.2-5.4); White Blood Count 13.5 K/mm3 (4.5-10.0)
[2025-04-11 18:31] LABS: INR 0.9; Prothrombin Time 12.4 Seconds (11.1-14.7)
[2025-04-11 18:32] LABS: Partial Thromboplastin Time 29.8 Seconds (22.3-36.8)
[2025-04-11 18:40] LABS: Alanine Aminotransferase 29 U/L (6-35); Albumin Level 3.7 g/dL (3.5-5.1); Alkaline Phosphatase 102 U/L (38-126); Anion Gap 6 mmol/L (4-12); Aspartate Amino Transferase 54 U/L (14-36); Bilirubin,Total 0.4 mg/dL (0.2-1.3); Blood Urea Nitrogen 29 mg/dL (7-17); Calcium 8.8 mg/dL (8.4-10.2); Carbon Dioxide 26 mmol/L (22-30); Chloride 102 mmol/L (98-107); Estimated CRCL calculation 23 ml/min; Estimated Glomerular Filt Rate 24; Glucose 209 mg/dL (65-110); Lipase 95 U/L (23-300); Magnesium 1.7 mg/dL (1.6-2.3); Potassium 5.1 mmol/L (3.4-5.0); Sodium 134 mmol/L (137-145); Total Protein 6.9 g/dL (6.3-8.2)
[2025-04-11 18:52] LABS: Troponin I < 0.012 ng/mL (0.000-0.034)
[2025-04-11 20:03] LABS: NT Pro B Type Natriuretic Pept 5530 pg/mL (19.9-100)
== END 2025-04-11 21:51 | disposition home or self-care (01) ==
PROVIDERS: Emergency Provider General Practice; PCP Family Medicine
DX: I47.10 Supraventricular tachycardia, unspecified (principal); N18.30 Chronic kidney disease, stage 3 unspecified; S82.831A Other fracture of upper and lower end of right fibula, initial encounter for closed fracture; W19.XXXA Unspecified fall, initial encounter; I12.9 Hypertensive chronic kidney disease with stage 1 through stage 4 chronic kidney disease, or unspecified chronic kidney disease; E11.22 Type 2 diabetes mellitus with diabetic chronic kidney disease; M79.89 Other specified soft tissue disorders; E78.5 Hyperlipidemia, unspecified; F41.9 Anxiety disorder, unspecified; Z79.84 Long term (current) use of oral hypoglycemic drugs; Z91.141 Patient's other noncompliance with medication regimen due to financial hardship; F17.210 Nicotine dependence, cigarettes, uncomplicated
CPT/HCPCS: 36415; 71045; 73610; 80053; 83690; 83735; 83880; 84484; 85025; 85610; 85730; 93005; 93971; 96361; 96374; 99284; J0153; J7030

== ENCOUNTER 2025-04-28 19:53 | Emergency (ER) | payer MEDICARE, SELFPAY ==
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
--- OUTSIDE RECORDS SUMMARY | 2024-04-15 05:15 | XMS_ITS | Continuity of Care Document ---
Author Organization [facility] Address [address] [place] [address] Phone Care Team Providers Care Utility Person Name Role Phone Alexey Millan MD Unavailable Unavailable Allergies, Adverse Reactions, Alerts Substance Reaction Status Criticality levofloxacin Active No Information ROSUVASTATIN CALCIUM Active No Info rmation Medications Medication Instructions Dosage Effective Dates (start - stop) Status Comments metoprolol tartrate 50 mg tablet take 1 tablet by oral route 2 times every day with meals 50 MG - Active glipizide 5 mg tablet - Active furosemide 40 mg tablet TAKE 1 TABLET BY MOUTH ONCE DAILY NEEDED - Active atorvastatin 20 mg tablet - Active dicyclomine 20 mg tablet - Active metformin 1,000 mg tablet TAKE 1 TABLET BY MOUTH TWICE DAILY - Active sertraline 100 mg tablet TAKE 1 TABLET BY MOUTH ONCE DAILY - Active potassium chloride ER 20 mEq tablet,extended release(part/cryst) TAKE 1 TABLET BY MOUTH ONCE DAILY - Active pantoprazole 40 mg tablet,delayed release take 1 tablet by oral route every day 40 MG - Active gabapentin 800 mg tablet take 1 tablet by oral route every 3 days 800 MG - Active alprazolam 0.5 mg tablet take 1 tablet by oral route every day 0.5 MG - Active hydrocodone 7.5 mg-acetaminophen 325 mg tablet take 1 tablet by oral route every hour as needed for pain 1 tablet - Active b12 BUCCAL - Active Claritin 10 mg tablet take 1 tablet by oral route every day 10 MG - Active Diflucan 200 mg tablet take 1 tablet by oral route every day - Active iron 325 mg (65 mg iron) tablet take 1 tablet by ORAL route 2 times every day 325 MG - Active Vitamin C 1,000 mg tablet take 1 tablet by oral route every day 1 tablet - Active metoprolol tartrate 25 mg tablet take 1 Tablet by oral route 2 times every day 25 MG - Active aspirin 81 mg tablet,delayed release take 1 tablet by oral route every day 81 MG - Active fluconazole 150 mg tablet TAKE 1 TABLET BY MOUTH ONCE DAILY - No Longer Active ibuprofen 800 mg tablet TAKE 1 TABLET BY MOUTH EVERY 8 HOURS WITH FOOD DO NOT TAKE WITH DICLOFENAC - No Longer Active levofloxacin 500 mg tablet TAKE 1 TABLET BY MOUTH EVERY 24 HOURS - No Longer Active sertraline 50 mg tablet TAKE 1 TABLET BY MOUTH ONCE DAILY IN ADDITION TO 100 MG ZOLOFT FOR A TOTAL OF 150 MG DAILY - No Longer Active Procedures Procedure Date OFFICE/OUTPATIENT VISIT, EST ELECTROCARDIOGRAM, COMPLETE BEHAV CHNG SMOKING 3-10 MIN OFFICE/OUTPATIENT VISIT, EST TTE W/DOPPLER, COMPLETE OFFICE/OUTPATIENT VISIT, EST Myocardial SPECT Imaging Multiple Studie s Technetium TC99M tetrofosmin Regadenoson injection CARDIOVASCULAR STRESS TEST OFFICE/OUTPATIENT VISIT, NEW ELECTROCARDIOGRAM, COMPLETE BEHAV CHNG SMOKING 3-10 MIN Advance Directives Directive Yes / No Effective Date File Name No Information Encounters Encounter Description Practice Location Reason(s) For Visit Diagnoses Date Provider Providers Copied on Encounter OFFICE/OUTPA TIENT VISIT, EST [facility], [address], [place], [place], [id number] , [place] tel:[phone] Tej Gorman f/u (chief complaint) Freeform HPI (chief complaint) Palpitatio ns (chief complaint) Dyspnea (chief complaint) COPDShortness of breathNicotine dependence, cigarettes, uncomplicatedAtherosc lerotic heart disease of [place] coronary artery with unspecified angina pectorisPalpitationsT ype II diabetes without complicationGERD w/o esophagitisHypertensi onStroke 4 Monty Blackburn. [address] [place] [address], [id number] , [place]. tel:[phone] Referring Provider: Tesha Fernandez [employer]AL[employer] CONTROL SYSTEMS MANAGER, [address] [place], [address]. tel:[phone] OFFICE/OUTPA TIENT VISIT, EST [facility], [address] [place] [address], [id number] , [place] tel:[phone] [facility] Freeform HPI (chief complaint) COPDShortness of breathNicotine dependence, cigarettes, uncomplicatedAtherosc lerotic heart disease of [place] coronary artery with unspecified angina pectorisPalpitations 3 Monty Blackburn. [address] [place] [address], [id number] , [place]. tel:[phone] Referring Provider: Alexey Reyna, [address] [place] [address], [id number] . tel:[phone] [facility], [address] [place] [address], [id number] , [place] tel:[phone] [facility] No Information 2 Monty Blackburn. [address] [place] [address], [id number] , [place]. [phone] Referring Provider: Alexey Reyna, [address] [place] [address], [id number] . tel:[phone] OFFICE/OUTPA TIENT VISIT, EST [facility], [address] [place] [address], [id number] , [place] tel:[phone] [facility] HPI (chief complaint) COPDAtherosclerotic heart disease of [place] coronary artery with unspecified angina pectorisChest painShortness of breathPalpitationsNic otine dependence, cigarettes, uncomplicated 2 Claude Rosario. [address] [place] [address] [place], [place], [id number] , [place]. [phone] Referring Provider: Marlene Buchanan, [address] [place] [address] [place], [address] . tel:[phone] [facility], [address] [place] [address], [id number] , tel:[phone] [facility] No Information 2 Monty Blackburn. [address] [place] [address], [id number] , . tel:[phone] Referring Provider: Alexey Reyna, [address] [place] [address], [id number] . tel:[phone] OFFICE/OUTPA TIENT VISIT, NEW [facility], [address] [place] [address], [id number] , tel:[phone] [facility] Freeform HPI (chief complaint) Freeform HPI (chief complaint) Chest Pain (chief complaint) Dyspnea (chief complaint) Palpitatio ns (chief complaint) COPDAtherosclerotic heart disease of [place] coronary artery with unspecified angina pectorisChest painShortness of breathPalpitationsNic otine dependence, cigarettes, uncomplicated 2 Monty Blackburn. [address] [place] [address], [id number] , . tel:[phone] Referring Provider: Alexey Reyna, [address] [place] [address], [id number] . tel:[phone] Family History Family Member Type Diagnosis Age At Onset Problem (finding) Myocardial infarction Problem (finding) Family history of Diabe malina mellitus Problem (finding) Family history of hyper tension Problem (finding) Family history of strok e Payers Payer name Insurance type Covered green party ID Authoriza ti(s) [facility] [id number] Social History Type Description Quantity Date Captured Comments Alcohol Use Details Unknown Caffeine Use Details Unknown Tobacco Use Status No Information Smoking Status No Information Sex Female Vital Signs Date / Time: Height Weight BMI Pulse Rate Blood Pressure Temperature Respiratory Rate Body Surface Area Head Circumference Head Circ. Percentile Wt./Bhupendra. Percentile BMI percentile Pulse Ox Inhaled Ox 8:55 AM 62.00 in 68.039 kg (150.00 lbs) 27.4 4 kg/m eter (2) 78 /min 158/74 mm[Hg] 97 % Chief Complaint And Reason For Visit From encounter dated '04/15/2024 10:15'. f/u (chief complaint) Freeform HPI (chief complaint). Description: Patient has had hx of CAD s/p CABG x 2 GRANADOS to LAD andSVG to OM I in 2002.Patient had heart cath in 2007 noted to be occluded.Patient reports having shortness of breath that is associated with palpitations randomly, but mostly occurred with resting.She states that she could feel her heart on race. Last cardiac evaluation was 3 years ago. Palpitations (chief complaint). Description: The client complains of palpitations. The client describes the palpitations as a rapid heart beat. The symptoms occur at rest, randomly. Dyspnea (chief complaint). Description: The client visits the office to be evaluated for dyspnea (shortness of breath). The client qualifies the shortness of breath as difficulty getting air out and inability to get air in. Pertinent negatives include fever, hemoptysis, lower extremity edema and substernal chest pain. Reason For Referral Reason For Referral No Information History Of Present Illness Encounter Date Complaint History Of Prese nt Illness f/u Freeform HPI Patient has had hx of CAD s/p CABG x 2 GRANADOS to LAD and SVG to OM I in 2002.Patient had heart cath in 2007 noted to be occluded.Patient reports having shortness of breath that is associated with palpitations randomly, but mostly occurred with resting.She states that she could feel her heart on race. Last cardiac evaluation was 3 years ago. Palpitations The client compl ains of palpitations. The client describes the palpitations as a rapid heart beat. The symptoms occur at rest, randomly. Dyspnea The client visit s the office to be evaluated for dyspnea (shortness of breath). The client qualifies the shortness of breath as difficulty getting air out and inability to get air in. Pertinent negatives include fever, hemoptysis, lower extremity edema and substernal chest pain. Freeform HPI Patient presents today for 2mo f/u. Denies chest discomfort suggestive of ischemia. The patient denies orthopnea, PND, CHAU, or edema. Denies palpitations, syncope, or near syncopal episodes. Denies claudication. There is no discoloration or ulceration of the lower extremities. The patient has not had a TIA or stroke like symptoms. There are no symptoms attributable to valvular heart disease. Patient denies any chest pain or shortness of breath. Patient states she has been doing well. Patient states that she has only had 1 episode where she fell her heart was beating fast but it was short-lived. We will continue current medications. Patient states she is doing well on her metoprolol.. Freeform HPI Pt present 4wk f u with echo same day. Denies chest discomfort suggestive of ischemia. The patient denies orthopnea, PND, CHAU, or edema. Denies palpitations, syncope, or near syncopal episodes. Denies claudication. There is no discoloration or ulceration of the lower extremities. The patient has not had a TIA or stroke like symptoms. There are no symptoms attributable to valvular heart disease. patient states she has had no further episodes of chest pain or shortness of breath. Patient does continue to smoke. Patient's preliminary results of her echo noted normal EF. Patient's RVSP is 42. Patient does have a diagnosis of COPD. Patient's event monitor which she could wear of it notes sinus rhythm. Patient's stress test is negative for ischemia. Patient states she did not get her verapamil from the last visit. We will resend that. Patient does complain of occasional palpitations where she feels like her heart is beating out of her chest..We will resend verapamil in follow-up in 2 months to see if palpitations have improved. Dyspnea The patient visi ts the office to be evaluated for dyspnea (shortness of breath). The patient qualifies the shortness of breath as difficulty getting air out and inability to get air in. Associated symptoms include lower extremity edema and substernal chest pain. Pertinent negatives include fever and hemoptysis. Freeform HPI Pt present as a new patient . Freeform HPI Patient has had hx of COPD and on oxygen therapy regularly in the past.Patient has had hx of CAD s/p CABG x 2 GRANADOS to LAD and SVG to OM I in 2002.Patient had heart cath in 2007 noted to be occluded. Patient complains of having palpitations with random exertion. She states that she can feel her heart racing. Patient had event monitor in the past but did not show any significant evidence of SVT. Patient states that it is associated shortness of breath with chest pain.Patient has hx of Breast cancer and had mastectomy done in the past. Chest Pain The patient comp lains of chest discomfort. The discomfort is located in the substernal area. The patient describes the pain as aching. She states exertion makes it worse. The discomfort occurs with exertion. It is associated with dyspnea. Pertinent negatives include nausea and diaphoresis. Palpitations The patient comp lains of palpitations. The patient describes the palpitations as a rapid heart beat. The symptoms occur with exertion. The palpitations are associated with chest pain and dyspnea. Functional Status Date Functional Assessmen t No Information Instructions Date Instruction Additional Infor mation No Information Assessments Type Assessment Date assessment COPD assessment Shortness of breath assessment Nicotine dependence, cigarettes, uncomplicated assessment Atherosclerotic hear t disease of [place] coronary artery with unspecified angina pectoris assessment Palpitations assessment Type II diabetes without complic ation assessment GERD w/o esophagitis assessment Hypertension assessment Stroke Patient Care Teams Name Effective Dates (start - stop) Status Members No Information
--- NOTE | ~2025-04-28 | XR_ITS ---
XR chest 1V portable INDICATION:SVT . REFERENCE: None FINDINGS: A single AP of the chest demonstrates enlarged heart. There are groundglass opacities bilaterally. There is no evidence of pneumothorax or pleural effusion. IMPRESSION: Groundglass opacity bilaterally suggestive of pulmonary congestion. Reviewed, dictated and finalized at location S.
--- NOTE | 2025-04-28 19:54 | ECG_ITS ---
Test Date: 2025-04-28 20:02:17 Measurements Intervals [place] Rate: 169 P: 0 CO: 0 QRS: 49 QRSD: 109 T: 118 QT: 276 QTc: 463 Interpretive Statements SUPRAVENTRICULAR TACHYCARDIA INCOMPLETE RIGHT BUNDLE BRANCH BLOCK NONSPECIFIC ST & T-WAVE ABNORMALITY- INF/LAT LEADS BASELINE ARTIFACT- I, II, III, AVR, AVL, AVF ABNORMAL ECG Compared to ECG 04/11/2025 18:15:32 Sinus rhythm no longer present Electronically Signed On 04-29-2025 06:15:04 CDT by Barry Cox D.O.
[2025-04-28 20:15] VITALS: BP 98/54; PULSE 165; PULSE 166; RESP 24; TEMP 36.6; O2SAT 96
[2025-04-28 20:25] LABS: Hematocrit 35.0 % (37.0-47.0); Hemoglobin 11.4 g/dL (12.0-15.0); Mean Corpuscular HGB Conc 32.6 g/dl (32-36); Mean Corpuscular Hemoglobin 29.2 pg (26-34); Mean Corpuscular Volume 89.7 fl (80-100); Platelet Count Result 378 k/mm3 (150-375); Red Blood Count 3.90 M/mm3 (4.2-5.4); White Blood Count 10.6 K/mm3 (4.5-10.0)
[2025-04-28] MEDS: SODIUM CHLORIDE 0.9% IV 1,000 ML 999 ML IV CONT (20:30)
[2025-04-28] MEDS: ADENOSINE IV SOLN 6 MG/2 ML VIAL IV PUSH (20:31)
[2025-04-28 20:35] LABS: INR 0.9; Prothrombin Time 12.3 Seconds (11.1-14.7)
[2025-04-28 20:36] VITALS: BP 152/63; PULSE 84; RESP 20; O2SAT 96
[2025-04-28 20:36] LABS: Partial Thromboplastin Time 27.5 Seconds (22.3-36.8)
[2025-04-28 20:38] LABS: Alanine Aminotransferase 21 U/L (6-35); Albumin Level 4.1 g/dL (3.5-5.1); Alkaline Phosphatase 135 U/L (38-126); Anion Gap 9 mmol/L (4-12); Aspartate Amino Transferase 32 U/L (14-36); Bilirubin,Total 0.1 mg/dL (0.2-1.3); Blood Urea Nitrogen 27 mg/dL (7-17); Calcium 9.2 mg/dL (8.4-10.2); Carbon Dioxide 29 mmol/L (22-30); Chloride 98 mmol/L (98-107); Estimated Glomerular Filt Rate 28; Glucose 327 mg/dL (65-110); Magnesium 1.7 mg/dL (1.6-2.3); Potassium 4.1 mmol/L (3.4-5.0); Sodium 136 mmol/L (137-145); Total Protein 7.4 g/dL (6.3-8.2)
--- NOTE | 2025-04-28 20:46 | ECG_ITS ---
Test Date: 2025-04-28 20:47:44 Measurements Intervals [place] Rate: 83 P: 5 ID: [id number] QRS: 21 QRSD: 79 T: -16 QT: 395 QTc: 466 Interpretive Statements SINUS RHYTHM LEFT ATRIAL ENLARGEMENT POSSIBLE RIGHT VENTRICULAR CONDUCTION DELAY BORDERLINE R WAVE PROGRESSION, ANTERIOR LEADS BORDERLINE ST-T WAVE ABNORMALITY- INFERIOR LEADS BASELINE ARTIFACT- II, III, AVF, V1 BORDERLINE ECG Compared to ECG 04/28/2025 20:02:17 Supraventricular tachycardia no longer present Electronically Signed On 04-29-2025 07:41:05 CDT by Barry Cox D.O.
[2025-04-28 20:47] LABS: Band Neutrophils Percent 0 % (0-6); Basophils Absolute Manual 0.31 K/mm3 (0.0-0.1); Basophils Percent Manual 3 % (0-1); Eosinophils Absolute Manual 0.31 K/mm3 (0.02-0.50); Eosinophils Percent Manual 3 % (0-4); Lymphocytes Absolute Manual 4.24 K/mm3 (1.1-4.5); Lymphocytes Percent Manual 40 % (18-44); Monocytes Absolute Manual 0.21 K/mm3 (0.1-0.90); Monocytes Percent Manual 2 % (3-9); Neutrophils Absolute Manual 5.51 K/mm3 (1.3-6.7); Neutrophils Percent Manual 52 % (46-73); Total Cells Counted 100
[2025-04-28 20:48] LABS: Schistocytes None Seen
[2025-04-28 21:00] VITALS: BP 143/62; PULSE 86; RESP 18; O2SAT 97
--- NOTE | 2025-04-28 21:26 | ED.ARRPALP ---
HPI - Arrhythmia/Palpitations General Chief Complaint: Arrhythmia/Palpitations Stated Complaint: I'm in SVT Time Seen by Provider: 04/28/25 20:08 History of Present Illness HPI narrative: Patient is a 64-year-old female who presents emergency department this evening stating that she is in SVT. Patient has a history of SVT and states that she gets them every few weeks. She does have a scheduled appointment with an packing machine operator for ablation therapy in approximately 2-3 weeks. Other than that she denies any symptoms or concerns including any chest pain, shortness of breath, recent illness, fevers or chills. Related Data Home Medications ?Medication ?Instructions ?Recorded ?Confirmed ?Last Taken ?Type alprazolam 0.5 mg tablet (Xanax) 0.5 mg PO QHS PRN anxiety 03/08/23 04/15/25 10/20/24 History ascorbic acid (vitamin C) 250 mg 125 mg PO DAILY 03/08/23 04/15/25 10/21/24 History tablet aspirin 81 mg tablet,delayed 81 mg PO DAILY 03/08/23 04/15/25 10/20/24 History release (Adult Low Dose Aspirin) cetirizine 10 mg tablet (Zyrtec) 10 mg PO DAILY PRN allergy symptoms 03/08/23 04/15/25 10/21/24 History cranberry extract 200 mg capsule 36,000 mg PO DAILY 03/08/23 04/15/25 10/21/24 History dicyclomine 20 mg tablet 20 mg PO BID 03/08/23 04/15/25 10/21/24 History ferrous sulfate 325 mg (65 mg 325 mg PO DAILY 03/08/23 04/15/25 10/21/24 History iron) tablet furosemide 40 mg tablet (Lasix) 40 mg PO QAM 03/08/23 04/15/25 10/21/24 History Held on 10/23/24. Instructions: HOLD - Resume when okay with your doctor glipizide 5 mg tablet 5 mg PO BID 03/08/23 04/15/25 10/21/24 History Held on 10/23/24. Instructions: HOLD - Resume when okay with your doctor hydrocodone 7.5 mg-acetaminophen 1 tablet PO BID 03/08/23 04/15/25 10/20/24 History 750 mg tablet mecobalamin (vitamin B12) 5,000 5,000 mcg PO DAILY 03/08/23 04/15/25 10/21/24 History mcg chewable tablet metformin 1,000 mg tablet,extended 1,000 mg PO BID 03/08/23 04/15/25 10/21/24 History release 24hr (osmotic) Held on 10/23/24. Instructions: HOLD - Resume when okay with your doctor multivitamin 1 tablet PO DAILY 03/08/23 04/15/25 10/21/24 History pantoprazole 40 mg tablet,delayed 40 mg PO QAM 03/08/23 04/15/25 10/21/24 History release potassium chloride 20 mEq 20 meq PO DAILY 03/08/23 04/15/25 10/21/24 History tablet,extended release Held on 10/23/24. Instructions: HOLD - Resume when okay with your doctor sertraline 100 mg tablet 100 mg PO DAILY 03/08/23 04/15/25 10/20/24 History methocarbamol 500 mg tablet 500 mg PO QHS 04/15/25 04/15/25 Unknown History Allergies Allergy/AdvReac Type Severity Reaction Status Date / Time adhesive tape Allergy Intermediate Rash Verified 04/15/25 07:52 amoxicillin (From Augmentin) AdvReac Intermediate Diarrhea Verified 04/15/25 07:52 clavulanic acid (From AdvReac Intermediate Diarrhea Verified 04/15/25 07:52 Augmentin) diphenhydramine (From AdvReac Intermediate Muscle Verified 04/15/25 07:52 Benadryl) Spasms Review of Systems Review of Systems: All systems are reviewed and are negative unless stated otherwise in the HPI. [facility] Past Medical History Medical History Atrial flutter Chronic kidney disease, stage 3 Hyperlipidemia Hypertension Depression with anxiety Coronary artery disease Type 2 diabetes mellitus Irritable bowel syndrome Cancer of left breast status post chemo radiation and mastectomy Chronic obstructive pulmonary disease Congestive heart failure Headache Arthritis Anxiety Surgical History Surgical History History of partial hysterectomy History of repair of left rotator cuff History of coronary artery bypass graft x 2 History of left mastectomy Family History Family History Father Alcoholism Daughter Depression Thyroid disorder Mother Acute myocardial infarction <65yo Social History Social History Social History: [place]oved [place] due to the of her fiance of 12 years Surrogate medical decision maker: Breanna Ramirez, daughter. Code status: Full code. Smoking packs per day: 0.75 Smoking cigarettes per day: 15.0 Years smoked: 53 Smoking pack-years: 39.75 Smoking status: Current every day smoker Tobacco type: cigarettes Alcohol intake: never Substance use: never Do You Feel Safe in your Home?: Yes Lack of Transportation: No Lack of Food: Never True Current Housing: I Have Housing Concerned About Future Housing: No Difficulty Paying Gas/Electric Bills: No Difficulty Paying for Meds: No Currently Unemployed: No Education: Decline to Answer Difficulty w/ Childcare or Family Care: No Spiritual care concerns: No Exam Narrative: General: Alert, awake, afebrile, in no acute distress. HEENT: PERRL, no rhinorrhea, no post nasal drip, oropharynx clear. Neck: Trachea midline, no JVD, no lymphadenopathy. Cardiovascular: Tachycardic with regular rhythm, no murmurs, rubs or gallops, no peripheral edema. Respiratory: Clear to auscultation bilaterally, no tachypnea, no wheezing, no rhonchi, no rubs, no respiratory distress. Abdomen: Soft, nontender, nondistended, no rebound, no guarding, no peritoneal signs. Musculoskeletal: No joint swelling or deformity, normal muscle tone. Skin: No rashes or petechia, no signs of infection. Psychiatric: Alert and oriented, normal behavior and judgment for situation. Neurological: Alert and oriented to person, place, and time. Follows all commands. No focal deficits, speech is clear and fluent. Course Vital Signs Vital signs: Vital Signs Pulse Rate 165 H 04/28/25 20:15 Pulse Rate 84 04/28/25 20:36 Respiratory Rate 20 04/28/25 20:36 Blood Pressure 152/63 H 04/28/25 20:36 Pulse Oximetry 96 04/28/25 20:36 MDM - Arrhythmia/Palpitations MDM Narrative Medical decision making narrative: The patient was evaluated by myself in the emergency department. History is obtained from patient who is an independent historian and physical exam was performed. External medical records were reviewed at this time. IV was established and pertinent tests were ordered. EKG was obtained which revealed supraventricular tachycardia rate of 169 beats per minute. No evidence of acute ischemia within the limitations of the heart rate. EKG was independently interpreted by me and is currently pending official cardiology read. At this time, Valsalva maneuver was performed x2 and was not successful. Patient was administered 6 mg of IV adenosine with conversion into normal sinus rhythm. Repeat EKG revealed sinus rhythm rate of 83 beats per minute. Laboratory results obtained revealing no acute process. Imaging studies obtained included CXR which was independently interpreted by me revealing some pulmonary congestion otherwise no acute process, which is pending final radiology interpretation. Differential diagnosis considerations include arrhythmia, SVT, dehydration, electrolyte derangements, acute viral syndrome. Comorbidities impacting this visit include history of SVT. I have evaluated and discussed social determinants of health with the patient that could potentially impact subsequent diagnosis and treatment plans. On repeat assessment of the patient, reevaluation revealed that the patient is doing well and is in no acute distress. Patient symptoms have improved since she arrived to our emergency department. Repeat vital signs were all reviewed and noted to be stable. Differential diagnosis and treatment plan were discussed with the patient at bedside. Patient agrees with discussion and after shared medical decision making agrees with discharge. All questions were answered to the patient's satisfaction. Patient will follow up with her EP as scheduled for her upcoming appointment. She was also instructed to follow-up with her primary care physician within 3-5 days. Patient was provided with strict return precautions and instructed to return to the emergency department if any new or worsening symptoms develop. The patient was discharged in stable condition. Critical care time of 37 minutes, exclusive of separately performed procedures, necessary for treating or preventing eminent or life-threatening deterioration of patient's condition of SVT requiring IV adenosine, focused on patient care provided personally by me and time spent during initial evaluation, physical examination, ordering and performing treatments and interventions, ordering and reviewing laboratory studies, ordering and reviewing radiographic studies, re-evaluation of the patient's condition, evaluation of the patient's response to treatment, and discussion of patient case with multiple consultants. Lab Data 04/28/25 20:18 04/28/25 20:18 Labs: Lab Results 04/28/25 Range/Units 20:18 WBC 10.6 H (4.5-10.0) K/mm3 RBC 3.90 L (4.2-5.4) M/mm3 Hgb 11.4 L (12.0-15.0) g/dL Hct 35.0 L (37.0-47.0) % MCV 89.7 (80-100) fl MCH 29.2 (26-34) pg MCHC 32.6 (32-36) g/dl RDW 14.1 (11.5-14.5) % Plt Count 378 H (150-375) k/mm3 MPV 9.2 (7.4-10.4) fl Immature Gran % (Auto) Not Reportable Neut % (Auto) Not Reportable Lymph % (Auto) Not Reportable Beadle % (Auto) Not Reportable Eos % (Auto) Not Reportable Baso % (Auto) Not Reportable Lymph # (Auto) Not Reportable Beadle # (Auto) Not Reportable Eos # (Auto) Not Reportable Baso # (Auto) Not Reportable Abs Immat Gran (auto) Not Reportable Absolute Neuts (auto) Not Reportable Absolute Nucleated RBC Not Reportable Total Counted 100 Neutrophils % (Manual) 52 (46-73) % Band Neutrophils % 0 (0-6) % Lymphocytes % (Manual) 40 (18-44) % Monocytes % (Manual) 2 L (3-9) % Eosinophils % (Manual) 3 (0-4) % Basophils % (Manual) 3 H (0-1) % Nucleated RBC % Not Reportable Abs Neuts (Manual) 5.51 (1.3-6.7) K/mm3 Abs Lymphs (Manual) 4.24 (1.1-4.5) K/mm3 Abs Monocytes (Manual) 0.21 (0.1-0.90) K/mm3 Absolute Eos (Manual) 0.31 (0.02-0.50) K/mm3 Abs Basophils (Manual) 0.31 H (0.0-0.1) K/mm3 Atypical Lymphocytes Present Platelet Estimate Adequate (Adequate) Schistocytes None seen PT 12.3 (11.1-14.7) Seconds INR 0.9 APTT 27.5 (22.3-36.8) Seconds Sodium 136 L (137-145) mmol/L Potassium 4.1 (3.4-5.0) mmol/L Chloride 98 (98-107) mmol/L Carbon Dioxide 29 (22-30) mmol/L Anion Gap 9 (4-12) mmol/L BUN 27 H (7-17) mg/dL Creatinine 1.84 H (0.7-1.0) mg/dL Estim Creat Clear Calc Not Reportable Estimated GFR 28 L (59 - ) Glucose 327 H (65-110) mg/dL Calcium 9.2 (8.4-10.2) mg/dL Magnesium 1.7 (1.6-2.3) mg/dL Total Bilirubin 0.1 L (0.2-1.3) mg/dL AST 32 (14-36) U/L ALT 21 (6-35) U/L Alkaline Phosphatase 135 H (38-126) U/L Total Protein 7.4 (6.3-8.2) g/dL Albumin 4.1 (3.5-5.1) g/dL Critical Care Time Critical Care Time Critical Care Time: Yes Total Critical Care Time: 37 (Please refer to [facility] for attestation.) Discharge Plan Discharge Clinical Impression: SVT (supraventricular tachycardia) Patient Disposition: Home Condition: Improved Instructions: Antibiotic Form, Supraventricular Tachycardia (ED) Additional Instructions: Please follow-up with your family doctor within the next 3-5 days. Return to the ED if any new or worsening symptoms develop. Patient Language: Cameroonian Prescriptions: No Action methocarbamol 500 mg tablet 500 mg PO QHS metformin 1,000 mg tablet extended release 24 hr 1,000 mg PO BID glipizide 5 mg tablet 5 mg PO BID dicyclomine 20 mg tablet 20 mg PO BID pantoprazole 40 mg tablet,delayed release (DR/EC) 40 mg PO QAM furosemide [Lasix] 40 mg tablet 40 mg PO QAM sertraline 100 mg tablet 100 mg PO DAILY alprazolam [Xanax] 0.5 mg tablet 0.5 mg PO QHS PRN (Reason: anxiety) potassium chloride 20 mEq tablet extended release 20 meq PO DAILY cetirizine [Zyrtec] 10 mg tablet 10 mg PO DAILY PRN (Reason: allergy symptoms) hydrocodone-acetaminophen 7.5-750 mg tablet 1 tablet PO BID aspirin [Adult Low Dose Aspirin] 81 mg tablet,delayed release (DR/EC) 81 mg PO DAILY mecobalamin (vitamin B12) 5,000 mcg tablet,chewable 5,000 mcg PO DAILY cranberry extract 200 mg capsule 36,000 mg PO DAILY Rx Instructions: administer with a meal ascorbic acid (vitamin C) 250 mg tablet 125 mg PO DAILY multivitamin Tablet 1 tablet PO DAILY ferrous sulfate 325 mg (65 mg iron) tablet 325 mg PO DAILY atorvastatin 40 mg Tablet 40 mg PO QHS Qty: 30 1RF metoprolol tartrate 50 mg Tablet 50 mg PO Q12HR Qty: 60 1RF gabapentin 800 mg tablet 800 mg PO TID Qty: 15 0RF Follow-up/Referrals: Forrest Mahoney MD [Primary Care Provider, Family Practice] - 3 Days Time of Disposition: 21:35
[2025-04-28 21:45] VITALS: BP 134/54; PULSE 86; RESP 18; O2SAT 97
== END 2025-04-28 22:10 | disposition home or self-care (01) ==
PROVIDERS: Emergency Provider Emergency Medicine; PCP Family Medicine
DX: I47.10 Supraventricular tachycardia, unspecified (principal); F17.210 Nicotine dependence, cigarettes, uncomplicated; I12.9 Hypertensive chronic kidney disease with stage 1 through stage 4 chronic kidney disease, or unspecified chronic kidney disease; E11.22 Type 2 diabetes mellitus with diabetic chronic kidney disease; N18.30 Chronic kidney disease, stage 3 unspecified
CPT/HCPCS: 36415; 71045; 80053; 83735; 85025; 85610; 85730; 93005; 96361; 96374; 99284; J0153; J7030

== ENCOUNTER 2025-06-10 12:03 | Outpatient (CLI) | payer MEDICARE, SELFPAY ==
--- NOTE | ~2025-06-10 | DEXA_ITS ---
Bone Density Report Name: MEY CARRANZA Age: 65 Sex: Female Ethnicity: White Date of : 1960 Indication: postmenopausal; screening for osteoporosis; inflammatory bowel disease; history of glucocorticoids; prior fracture; cancer; hysterectomy; rheumatoid arthritis; Referring Provider: JOHNATHAN, CINDY Riddle Study: Bone densitometry was performed. Exam Date: June 10, 2025 Accession number: [id number] Bone Density: Region BMD T-score Z-score Classification AP Spine(L1-L4) 1.346 2.7 4.6 Normal Femoral Neck (Left) 0.691 -1.4 0.1 Osteopenia Total Hip (Left) 1.033 0.7 2.0 Normal Femoral Neck (Right) 0.616 -2.1 -0.5 Osteopenia Total Hip (Right) 0.996 0.4 1.7 Normal Total Hip Mean 1.014 0.6 1.9 Normal World Health Organization criteria for BMD impression classify patients as: Normal (T-score at or above -1.0), Osteopenia (T-score between -1.0 and -2.5), or Osteoporosis (T-score at or below -2.5). 10-year Fracture Risk: FRAX not reported because: Prior hip or vertebral fracture Clinical Information Provided by Patient: Have had a previous hip or vertebral fracture Has had a low trauma fracture Smokes Has taken Glucocorticoids Has rheumatoid arthritis Has used the following medications: Vitamin D Has the following medical conditions: Cancer, Inflammatory bowel diseases, Hysterectomy Patient maximum height was 62.0 Menopause Age: 39 Drinks caffeinated beverages Onset of menses at age 11 Number of children 3 Impression: The patient has low bone mass, based on the Right Femoral Neck T-score. The patient has risk factors, including: smoking, previous fracture, history of glucocorticoid therapy. Discussion: INCREASED RISK OF FRACTURE DUE TO HISTORY OF FRACTURE. The patient's previous fracture puts the patient at high risk of a future fracture. In untreated patients, the risk of osteoporotic fracture increases approximately two-fold for each 1.0 SD decrease in T-score. Low bone density is not the only risk factor for fracture; also consider factors such as patient's age, frailty or poor health, risk of falling, risk of injury, previous osteoporotic fracture, family history of osteoporosis, cigarette smoking, low body weight, etc. Not everyone with a low trauma fracture has osteoporosis; osteomalacia and other metabolic bone disorders should also be considered. Patients who have osteoporosis should be evaluated for specific diseases and conditions (secondary causes) that may cause or contribute to bone loss and fracture risk. National Osteoporosis Foundation (NOF) recommends pharmacologic intervention for patients with a prior hip or vertebral fracture regardless of BMD T-score. The patient should follow a healthful lifestyle (good nutrition with adequate calcium and vitamin D, and appropriate weight-bearing exercise). Follow-Up: Consider a repeat BMD and Vertebral Fracture Assessment (VFA) exam in 2 years or sooner if medically necessary, to reassess this patient's status. Reported by: TRUE on 06/10/2025 12:46:00 PM. Reviewed, dictated and finalized at location A.
== END 2025-06-10 12:04 | disposition home or self-care (01) ==
PROVIDERS: PCP Family Medicine; Visit Provider Nurse Practitioner Family
DX: Z13.820 Encounter for screening for osteoporosis (principal); Z78.0 Asymptomatic menopausal state; M81.0 Age-related osteoporosis without current pathological fracture; M85.852 Other specified disorders of bone density and structure, left thigh; M85.851 Other specified disorders of bone density and structure, right thigh
CPT/HCPCS: 77080

== ENCOUNTER 2025-06-22 08:33 | Outpatient (CLI) | payer MEDICARE, SELFPAY ==
--- NOTE | ~2025-06-22 | US_ITS ---
EXAM/PROCEDURE: US arterial ankle brachial ind HISTORY: PVD COMPARISON: None available. TECHNIQUE: NIXON exam FINDINGS: Right brachial pressure readings 143 No left brachial pressure provided Right and left posterior tibial pressure readings are 165 and 151 Right and left dorsalis pedis pressure readings are 159 and 138 Right and left great toe pressure readings are 80 and 14 Right and left ABIs are 1.15 and 1.06 Plethysmography appears grossly normal IMPRESSION: 1. Both ABIs are within normal limits. 2. Significantly abnormal left-sided TBI. Consider correlation with dedicated duplex arterial interrogation of the left lower extremity for complete evaluation. Reviewed, dictated and finalized at location A. MAKER IMPRESSION: 1. Both ABIs are within normal limits. 2. Significantly abnormal left-sided TBI. Consider correlation with dedicated d uplex arterial interrogation of the left lower extremity for complete evaluatio n.
== END 2025-06-22 08:34 | disposition home or self-care (01) ==
PROVIDERS: PCP Family Medicine; Visit Provider Nurse Practitioner Family
DX: I73.9 Peripheral vascular disease, unspecified (principal)
CPT/HCPCS: 93922